=== PATIENT | male | born 1980 | race Caucasian/White ===

== ENCOUNTER 2016-08-03 11:22 | Inpatient (IN) | payer MEDICAID ==
[~2016-08-03] VITALS: Ht 175.3 cm; Wt 74.7 kg
[~2016-08-03 11:22] MED LIST: SERT-141 PO
[2016-08-03 12:04] LABS: MEAN CORPUSCULAR HEMOGLOBIN 29.9 pg (27.0-33.0); MEAN CORPUSCULAR HGB CONC 34.3 g/dl (32.0-36.5); MEAN CORPUSCULAR VOLUME 87.2 fl (80.0-96.0); RED CELL DISTRIBUTION WIDTH 12.7 % (11.5-14.5); WHITE BLOOD COUNT 7.5 K/mm3 (4.0-10.0)
[2016-08-03 12:34] LABS: AMPHETAMINES LEVEL URINE NEGATIVE (NEGATIVE); BENZODIAZEPINES URINE POSITIVE (NEGATIVE); COCAINE METABOLITE URINE POSITIVE (NEGATIVE); CONTROL LINE INT CTR LINE PRESENT; METHADONE URINE NEGATIVE (NEGATIVE); OPIATES URINE POSITIVE (NEGATIVE)
[2016-08-03 12:35] LABS: ALBUMIN 3.4 GM/DL (3.2-5.2); ALBUMIN/GLOBULIN RATIO 0.89 (1.00-1.93); ALKALINE PHOSPHATASE 72 U/L (45-117); ALT/SGPT 78 U/L (12-78); ANION GAP 7 MEQ/L (8-16); AST/SGOT 42 U/L (15-37); BILIRUBIN,DIRECT < 0.1 MG/DL (0.0-0.2); BILIRUBIN,TOTAL 0.3 MG/DL (0.2-1.0); BLOOD UREA NITROGEN 10 MG/DL (7-18); CALCIUM LEVEL 8.8 MG/DL (8.5-10.1); CARBON DIOXIDE LEVEL 26 MEQ/L (21-32); CHLORIDE LEVEL 108 MEQ/L (98-107); CREATININE FOR GFR 0.79 MG/DL (0.70-1.30); GLOMERULAR FILTRATION RATE > 60.0 (>60); GLUCOSE, FASTING 91 MG/DL (70-105); POTASSIUM SERUM 4.2 MEQ/L (3.5-5.1); SODIUM LEVEL 141 MEQ/L (136-145); TOTAL PROTEIN 7.2 GM/DL (6.4-8.2); TRICYCLIC ANTIDEPRESS URINE POSITIVE (NEGATIVE)
[2016-08-03] MEDS ORDERED: XANA0.25 PO (15:06)
[2016-08-03] MEDS ORDERED: BUSP10TA PO (15:06)
[2016-08-03] MEDS ORDERED: ZOLO50TA PO (15:06)
--- NOTE | 2016-08-03 18:15 | EDDOCDS ---
Physician Documentation [facility] Name: Darryl Burns Age: 35 yrs Sex: Male : 1980 Arrival Date: 08/03/2016 Time: 11:[address] [facility] Private MD: Rose Nayak G. Disposition: 08/03 13:18 Critical Care: Critical care not applicable. pc Disposition: 08/03/16 13:19 Hospitalization ordered by Natasha Moreno for Inpatient Admission. Preliminary diagnosis are Opioid abuse with opioid-induced mood disorder, Suicidal ideations. - Bed requested for Admit. - Status is Inpatient Admission. kcs - Condition is Stable. - Problem is new. - Symptoms are unchanged. HPI: 12:02 This 35 yrs old Male presents to ER via Walkin/Carried/Asstd with complaints pc of Psych Problem. 12:02 The history is obtained from the patient. pc 12:02 The patient presents to the emergency department with suicidal ideation, depression, a pc history of substance abuse. He is requesting admission to [facility]. He is an opioid addict, with both arms covered in track baker. He says he is sick of everything and wants to . The patient has experienced similar episodes in the past, multiple times. The patient has not recently seen a physician. Historical: - Allergies: sleep medications; - Home Meds: 1. Zoloft 50 mg oral tab 1 tab once daily 2. buspirone 10 mg Oral tab 2 times per day 3. Xanax 0.5 mg Oral tab twice a day - PMHx: opiate addiction; Hepatitis C; Depression; Anxiety; - PSHx: none; - The history from nurses notes was reviewed: and I agree with what is documented. - Social history: Smoking status: Patient uses tobacco products, heavy tobacco smoker. No barriers to communication noted, The patient speaks fluent Mauritian, Speaks appropriately for age. - : The pt / caregiver states he / she is not on anticoagulants. Home medication list is obtained from the patient. - Hospitalizations: : No recent hospitalization is reported. - Exposure Risk Screening:: None identified. - Immunization history:: All immunizations up-to-date. - Family history: Not pertinent. - Social history:: the patient is a non-smoker, the patient drinks alcohol, the patient uses illicit drugs, including heroin, opiates. ROS: 12:02 All systems are negative except as listed. The psychiatric and neurological components pc are also addressed in the HPI. Exam: 12:02 General Appearance: alert, no acute distress. pc 12:02 ENT: ear, nose and throat normal, pharynx normal. 12:02 Eyes: pupils equal, round and reactive to light, extraocular motions intact. 12:02 Neck: The exam reveals no acute abnormalities. ROM is normal and painless. No nuchal rigidity is noted.. 12:02 Respiratory: breathing is even and unlabored, breath sounds are normal. 12:02 Cardiovascular: regular pulse rate, regular heart rhythm, normal heart sounds, equal and full pulses bilaterally. 12:02 Abdomen: soft, non-tender, no organomegaly, normal bowel sounds. 12:02 Skin: skin color is normal, warm, dry. 12:02 Extremities: are non-tender, without acute ROM abnormalities, track baker on forearms . 12:02 Neuro: alert, oriented to person, place and time, cranial nerves normal as tested, no motor deficits, no sensory deficits. 12:02 Psych: mood is normal, affect is appropriate. Vital Signs: 11:24 BP 109 / 70 RA Sitting (auto/lg); Pulse 90; Resp 20; Temp 97.0(O); Pulse Ox 99% on R/A; bnb Weight 72.57 kg / 159.99 lbs; Height 5 ft. 9 in. (175.26 cm) (R); Pain 0/10; 17:01 BP 107 / 58; Pulse 79; Resp 18; Temp 97.7(TE); Pulse Ox 97% on R/A; kcs 18:11 BP 105 / 60; Pulse 77; Resp 18; Temp 98.0(TE); Pulse Ox 98% on R/A; Pain 4/10; kcs 11:24 Body Mass Index 23.63 (72.57 kg, 175.26 cm) bnb MDM: 11:46 Consult PFS/PSA/[place] ordered. kcs 11:46 Consult PFS/PSA/[place]: Patient's case requires discussion with on-call kcs Psychiatrist ordered. 11:46 PSA/PFS to call Nursing Facility Rehab Director, to enter patient data on [place] Safe Act if patient kcs involuntarily admitted or transferred for SI or HI ordered. 11:46 Confirm accurate psychiatric medication list and times of last dosage ordered. kcs 11:46 Detain Pt Until Medically/PFS Cleared ordered. kcs 11:48 Acetaminophen Level Ordered. EDMS 11:48 Basic Metabolic Profile Ordered. EDMS 11:48 Complete Blood Count Ordered. EDMS 11:48 Drug Eval Toxicology ED Only Ordered. EDMS 11:48 Ethyl Alcohol (ethanol) Ordered. EDMS 11:48 Liver Profile Ordered. EDMS 11:48 Salicylate Level Ordered. EDMS 11:48 Thyroid Stimulating Hormone Ordered. EDMS 11:56 REGULAR DIET PLASTIC CARTER+DIET ordered. EDMS 12:02 Differential diagnosis: suicidal ideation, Substance Abuse. Plan: labs, PFS eval. pc 12:08 Consult PFS/PSA/[place] complete. ml4 12:08 Consult PFS/PSA/[place]: Patient's case requires discussion with on-call ml4 Psychiatrist complete. 12:08 PSA/PFS to call Nursing Facility Rehab Director, to enter patient data on [place] Safe Act if patient ml4 involuntarily admitted or transferred for SI or HI complete. 12:38 Acetaminophen Level Reviewed. pc 12:38 Basic Metabolic Profile Reviewed. pc 12:38 Complete Blood Count Reviewed. pc 12:38 Drug Eval Toxicology ED Only Reviewed. pc 12:38 Liver Profile Reviewed. pc 12:38 Salicylate Level Reviewed. pc 12:38 Ethyl Alcohol (ethanol) Reviewed. pc 12:38 Thyroid Stimulating Hormone Reviewed. pc 13:18 The patient has been medically cleared for psychiatric evaluation, admission and/or pc transfer. [place]: The patient poses a significant risk to self or others, and PSA/PFS has notified the Nursing Facility Rehab Director and he/she will complete the required studio data analyst. Data reviewed: old medical records, vital signs, nurses notes, lab test results. Test interpretation: LAB - all labs as ordered have been reviewed, interpreted and considered in the overall management of the clinical presentation;. The patient has been re-examined and re-evaluated. There is no appreciated change of the patient's symptoms at this time. Other consultation: The ED pantry worker was notified and will evaluate the patient. 13:18 Disposition: The historical points, examination findings, and any diagnostic results pc supporting the provided diagnosis, were discussed with the patient or legal guardian. The need for further work-up and/or treatment in the hospital was explained. 13:45 Admit to [facility]: ordered. EDMS 13:48 [facility] Payment Agreement was scanned into [employer] and attached to record. jp5 13:48 Financial registration complete. jp5 13:56 [facility] Legal paperwork was scanned into [employer] and attached to record. ml4 14:00 REGULAR DIET ordered. EDMS 16:23 REGULAR DIET PLASTIC CARTER+DIET ordered. EDMS Signatures: Dispatcher [employer] EDMS Pablo Alcazar MD MD pc Sleeman, Kacey RN RN Jennifer TaylorRN RN [id number] Teresa Brock, PSA PSA ml4 Hortensia Joseph jp5 The chart was reviewed and I authenticate all verbal orders and agree with the evaluation and treatment provided.Attachments: 13:48 [facility] Payment Agreement jp5 MTDD
--- NOTE | 2016-08-03 18:15 | EDDOCDS ---
Nurse's Notes [facility] Name: Darryl Burns Age: 35 yrs Sex: Male : 1980 Arrival Date: 08/03/2016 Time: 11:[address] MD: Rose Nayak G. Diagnosis: Opioid abuse with opioid-induced mood disorder;Suicidal ideations Presentation: 08/03 11:27 Presenting complaint: Patient states: Reports withdrawals from his medications (xanax ck1 and opiates). Sates he is having SI and "I need to go upstairs". Mental Health Triage Level: Level 2: The patient displays active suicidal ideations. Adult Sepsis Screening: The patient does not have new or worsening altered mentation. Patient's respiratory rate is less than 22. Systolic blood pressure is greater than 100. Patient has a qSOFA score of 0- Negative Sepsis Screen. Suicide/Homicide risk assessment- The patient admits to and/or has been reported to be having suicidal ideations. The patient reports that he/she has not been admitted to an inpatient mental health facility in the last 30 days. The patient reports that he/she has a recent or current history of substance abuse. The patient reports that he/she has a prior history of suicide attempt and/or organized plan. The patient reports that he/she has not experienced a significant life altering event in the last 30 days. The patient reports that he/she lacks adequate social support. The patient reports he/she has no significant chronic medical condition(s). Status: Patient is not a youth services specialist or dependent. Transition of care: patient was not received from another setting of care. 11:27 Acuity: ISABEL Level 3 ck1 11:27 Method Of Arrival: Walkin/Carried/Asstd ck1 11:31 Red Flag criteria, patient assessed and taken directly to a bed. ck1 Triage Assessment: 11:30 General: Appears in no apparent distress, comfortable, Behavior is appropriate for age, ck1 cooperative. Pain: Denies pain. HIV screening NA for this visit Offered previously. Neurological: Level of Consciousness is awake, alert, obeys commands. Respiratory: Respiratory effort is unlabored, Respiratory pattern is regular, symmetrical. GI: Reports diarrhea. Derm: Skin is healthy with good turgor, Skin is pink, warm & dry. Musculoskeletal: Circulation, motion, and sensation intact Range of motion intact in all extremities. Historical: - Allergies: sleep medications; - Home Meds: 1. Zoloft 50 mg oral tab 1 tab once daily 2. buspirone 10 mg Oral tab 2 times per day 3. Xanax 0.5 mg Oral tab twice a day - PMHx: opiate addiction; Hepatitis C; Depression; Anxiety; - PSHx: none; - The history from nurses notes was reviewed: and I agree with what is documented. - Social history: Smoking status: Patient uses tobacco products, heavy tobacco smoker. No barriers to communication noted, The patient speaks fluent Lithuanian, Speaks appropriately for age. - : The pt / caregiver states he / she is not on anticoagulants. Home medication list is obtained from the patient. - Hospitalizations: : No recent hospitalization is reported. - Exposure Risk Screening:: None identified. - Immunization history:: All immunizations up-to-date. - Family history: Not pertinent. - Social history:: the patient is a non-smoker, the patient drinks alcohol, the patient uses illicit drugs, including heroin, opiates. Screenin:01 Screening information is obtained from the patient. Fall risk: No risks identified. kcs Assistance ADL's: requires no assistance with activities of daily living. Abuse/DV Screen: The patient / caregiver reports he/she is: not in a situation that causes fear, pain or injury. Nutritional screening: No deficits noted. Advance Directives: Currently, there is no health care proxy. There is no living will. home support is adequate. Assessment: 12:03 Reassessment: Patient resting on stretcher. No shaking noted. States he aches all over kcs which is normal for him when he is withdrawing - states has been to rehab multiple times. Respirations easy. Flat affect. Security observing.. 12:12 General: GAURI Davis evaluating patient.. kcs 12:57 Reassessment: Patient eating lunch. Security observing.. kcs 14:18 Reassessment: patient resting on stretcher - denies any needs. Respirations easy. kcs Security observing.. 15:18 Reassessment: Patient resting on stretcher - respirations easy. Security observing.. kcs 16:41 Reassessment: Patient continues to rest on stretcher - with eyes closed. Respirations kcs easy. No shaking noted. Security observing.. 17:01 Reassessment: Patient roused easily. Denies pain but states he aches all over. Still no kcs shaking noted. Declines po fluids. Security observing.. 18:11 Reassessment: Patient states he still aches all over - not pain. No shaking noted. Flat kcs affect Cooperative.. General: Appears comfortable, well developed, well nourished, well groomed, Behavior is cooperative, flat. Pain: Location: aches all over Pain currently is 4 out of 10 on a pain scale. Neurological: Level of Consciousness is awake, alert. Respiratory: Airway is patent Respiratory effort is even, unlabored, Respiratory pattern is regular, symmetrical. Derm: Skin is intact, is healthy with good turgor, Skin is dry, Skin is normal. Mental Health Eval: 12:18 Mental health consult is initiated at 12:00. Status: The patient is not a ml4 youth services specialist or dependent. [facility] Behavioral Health: The patient is not an established patient of [facility] Behavioral Health. Referral Information: Evaluation referral is generated by the patient himself / herself. The patient was referred for evaluation because thoughts of suicide with no specific plan due to on-going substance abuse. . Subjective: The patients chief complaint is pt states," I want to kill myself because I can't take these withdrawals anymore." Pt reports suffering from thoughts of suicide with no plan over the past few days related to his on-going substance abuse. Admits abusing Suboxone(2 strips per day) that he regularly purchases off the street, last used yesterday. Pt states, "If can't get Suboxone, then I will buy Heroin." Last used Heroin 2 days ago(IV, 1 gram). In addition to opiates, pt reports smoking "Crack" and states, "it's because I live at a Crack house." Due to his on-going substance abuse, pt reports his 6 year relationship was terminated last year(November,) and ex girlfriend continues to refuses to allow him to see his 2 children(ages 2 and 3). Admits missing his family and states he does not have anyone in his life that cares about him. Other stressors include housing. Admits residing at a "Crack House" and states he is sanctioned from [facility] after he left [facility] in 2016, therefore is homeless. Pt is requesting rehab, but continues to express SI with no plan. . Delusions are denied. Patient's mood is depressed, Hallucinations are denied. Mental Health history: anxiety, depression, abusing prescription drugs. crack cocaine. methamphetamine. heroin. narcotics. Mental Health Admissions: [facility] d/c 12/16/15 Current Outpatient Mental Health Services: None. Current living environment is The patient currently lives with roommates . The patient is single. 12:58 Patient presents to Emergency Department with the following symptoms within the past 2 ml4 weeks: decreased appetite, depressed mood, drug abuse, feelings of helplessness/hopelessness, non-compliance, poor concentration, relational problem, sleep disturbance - insomnia, suicidal ideation with no plan. Substance abuse: Patient uses heroin 1 gram, IV, Last used 2 days ago Patient uses opiates Type Used: Synthetic, Suboxone/ 2 strips per day/Last used, yesterday Patient uses tobacco 1 pack Frequency daily. Mental status exam: Patients appearance is unkempt, Patient's behavior is cooperative, Speech is normal. Affect is appropriate. Mood is depressed. Hallucinations are denied. Appetite is poor. Memory is good. Energy level is normal. Content of thought is depressive. due to SI with no plan Thought process is intact. Cognitive level is oriented to person, place, time and situation Patient's insight is poor. Judgement is poor. Rapport with interviewer is good. Suicidal Ideation is present with no specific plan. Homicidal ideation is denied. Disposition: Medically cleared for disposition by Pablo Alcazar MD Psychiatric Consult is performed by phone with Dr Natasha Moreno. [facility] Admission Criteria: The patient is experiencing suicidal ideation. The patient requires continuous observation and/or control to protect self, others or property. The patient's care requires a multi-modal treatment plan under close supervision and coordination due to the complexity and severity of the patient's symptoms. The patient requires administration and monitoring of psychoactive medications by skilled medical providers due to the side effects of the psychoactive medications or significant dosage adjustments. Legal Status: Patient's legal status will be Emergency admission: . [place] Safe Act: [place] Safe Act is applicable to this patient. The patient poses a risk to self or other and the Nursing Education Consultant has been notified. He/She will enter the patient's data. DSM-V Differential Diagnosis: Major Depressive Disorder unspecified (F33.9) Opioid Use Disorder. Narrative: Pt is aware he will not be prescribed Suboxone or Methadone while [facility]. Pt continues to request hospitalization and endorse SI with no plan. Awaiting: transfer [facility]. Vital Signs: 11:24 BP 109 / 70 RA Sitting (auto/lg); Pulse 90; Resp 20; Temp 97.0(O); Pulse Ox 99% on R/A; bnb Weight 72.57 kg; Height 5 ft. 9 in. (175.26 cm) (R); Pain 0/10; 17:01 BP 107 / 58; Pulse 79; Resp 18; Temp 97.7(TE); Pulse Ox 97% on R/A; kcs 18:11 BP 105 / 60; Pulse 77; Resp 18; Temp 98.0(TE); Pulse Ox 98% on R/A; Pain 4/10; kcs 11:24 Body Mass Index 23.63 (72.57 kg, 175.26 cm) bnb Vitals: 11:24 Log In Time: August 03, 2016 at 11:20. RN notified that patient meets Red Flag bnb criteria. ED Course: 11:23 Patient visited by Maria Del Carmen Graham PCA. bnb 11:23 Rose Nayak is Private Physician. bnb 11:23 Patient moved to Waiting bnb 11:29 Triage Initiated ck1 11:31 Patient moved to [facility] ck1 11:45 Pt greeted and oriented to ED. Patient advised of names of staff involved in care, pjf location of call sawyer, wait times and NPO status. Patient has correct armband on for positive identification. Placed in psych safe attire. Bed in low position. Call light in reach. Side rails up X 1. Security observing. Property removed, secured in belongings bag- Placed in locker #2. Door closed. Noise minimized. Visitors limited. Report received from rn- psych. triage level #2, +si, cooperative \\T\\ this time. The patient / caregiver is instructed regarding the plan of care and ED course. 11:46 Patient visited by Maurice Piper Security Aide. pjf 11:50 Pablo Alcazar MD is Attending Physician. pc 11:54 Acetaminophen Level Sent. kcs 11:54 Basic Metabolic Profile Sent. kcs 11:54 Complete Blood Count Sent. kcs 11:54 Drug Eval Toxicology ED Only Sent. kcs 11:54 Ethyl Alcohol (ethanol) Sent. kcs 11:54 Liver Profile Sent. kcs 11:54 Salicylate Level Sent. kcs 11:54 Thyroid Stimulating Hormone Sent. kcs 12:01 Patient visited by Pablo Alcazar MD. pc 12:03 Patient visited by Teresa Brock PSA. ml4 12:25 Patient visited by Maurice Piper Security Aide. pjf 12:43 Patient visited by Maurice Piper Security Aide. pjf 13:05 Patient visited by Maurice Piper Security Aide. pjf 13:19 Natasha Moreno is Hospitalizing Provider. pc 13:22 Patient visited by Maurice Piper Security Aide. pjf 13:34 Patient visited by Maurice Piper Security Aide. pjf 13:45 Psych Safety Check: Location: Psych Room. Visual Assessment: Cooperative. pjf 13:48 [id number] Payment Agreement was scanned into [employer] and attached to record. jp5 13:56 E Legal paperwork was scanned into [employer] and attached to record. ml4 13:59 Patient visited by Maurice Piper Security Aide. pjf 14:14 Patient visited by Maurice Piper Security Aide. pjf 14:34 Patient visited by Maurice Piper Security Aide. pjf 14:51 Patient visited by Maurice Piper Security Aide. pjf 15:04 Patient visited by Maurice Piper Security Aide. pjf 15:15 Psych Safety Check: Location: Psych Room. Visual Assessment: Cooperative. pjf 15:30 Psych Safety Check: Location: Psych Room. Visual Assessment: Cooperative. pjf 15:45 Psych Safety Check: Location: Psych Room. Visual Assessment: Cooperative. pjf 16:00 Psych Safety Check: Location: Psych Room. Visual Assessment: Cooperative. pjf 16:58 Patient visited by Maurice Piper Security Aide. pjf 17:30 Patient visited by Maurice Piper Security Aide. pjf 17:57 Patient visited by Maurice Piper Security Aide. pjf 18:11 No IV's were initiated during this patient's visit. No procedures done that require kcs assistance. Attachments: 13:56 E Legal paperwork ml4 Order Results: Lab Order: Acetaminophen Level; SPEC'M 08/03/16 11:52 Test: ACETAMINOPHEN LEVEL; Value: < 2.0; Range: 10.0-30.0; Abnormal: Below low normal; Units: UG/ML; Status: F Lab Order: Basic Metabolic Profile; SPEC'M 08/03/16 11:52 Test: GLUCOSE, FASTING; Value: 91; Range: 70-105; Units: MG/DL; Status: F Test: BLOOD UREA NITROGEN; Value: 10; Range: 7-18; Units: MG/DL; Status: F Test: CREATININE FOR GFR; Value: 0.79; Range: 0.70-1.30; Units: MG/DL; Status: F Test: GLOMERULAR FILTRATION RATE; Value: > 60.0; Range: >60; Status: F Test: SODIUM LEVEL; Value: 141; Range: 136-145; Units: MEQ/L; Status: F Test: POTASSIUM SERUM; Value: 4.2; Range: 3.5-5.1; Units: MEQ/L; Status: F Test: CHLORIDE LEVEL; Value: 108; Range: 98-107; Abnormal: Above high normal; Units: MEQ/L; Status: F Test: CARBON DIOXIDE LEVEL; Value: 26; Range: 21-32; Units: MEQ/L; Status: F Test: ANION GAP; Value: 7; Range: 8-16; Abnormal: Below low normal; Units: MEQ/L; Status: F Test: CALCIUM LEVEL; Value: 8.8; Range: 8.5-10.1; Units: MG/DL; Status: F Test Note: ; Units are mL/min/1.73 m2 Chronic Kidney Disease Staging per NKF: Stage I & II GFR >=60 Normal to Mildly Decreased Stage III GFR 30-59 Moderately Decreased Stage IV GFR 15-29 Severely Decreased Stage V GFR <15 Very Little GFR Left ESRD GFR <15 on VAULT PERSON Lab Order: Complete Blood Count; SPEC'M 08/03/16 11:52 Test: WHITE BLOOD COUNT; Value: 7.5; Range: 4.0-10.0; Units: K/mm3; Status: F Test: RED BLOOD COUNT; Value: 4.76; Range: 4.30-6.10; Units: M/mm3; Status: F Test: HEMOGLOBIN; Value: 14.2; Range: 14.0-18.0; Units: g/dl; Status: F Test: HEMATOCRIT; Value: 41.5; Range: 42.0-52.0; Abnormal: Below low normal; Units: %; Status: F Test: MEAN CORPUSCULAR VOLUME; Value: 87.2; Range: 80.0-96.0; Units: fl; Status: F Test: MEAN CORPUSCULAR HEMOGLOBIN; Value: 29.9; Range: 27.0-33.0; Units: pg; Status: F Test: MEAN CORPUSCULAR HGB CONC; Value: 34.3; Range: 32.0-36.5; Units: g/dl; Status: F Test: RED CELL DISTRIBUTION WIDTH; Value: 12.7; Range: 11.5-14.5; Units: %; Status: F Test: PLATELET COUNT, AUTOMATED; Value: 308; Range: 150-450; Units: k/mm3; Status: F Lab Order: Drug Eval Toxicology ED Only; SPEC'M 08/03/16 11:52 Test: AMPHETAMINES LEVEL URINE; Value: NEGATIVE; Range: NEGATIVE; Status: F Test: BARBITURATES URINE; Value: NEGATIVE; Range: NEGATIVE; Status: F Test: BENZODIAZEPINES URINE; Value: POSITIVE; Range: NEGATIVE; Abnormal: Above high normal; Status: F Test: CANNABINOIDS URINE; Value: POSITIVE; Range: NEGATIVE; Abnormal: Above high normal; Status: F Test: COCAINE METABOLITE URINE; Value: POSITIVE; Range: NEGATIVE; Abnormal: Above high normal; Status: F Test: METHADONE URINE; Value: NEGATIVE; Range: NEGATIVE; Status: F Test: OPIATES URINE; Value: POSITIVE; Range: NEGATIVE; Abnormal: Above high normal; Status: F Test: TRICYCLIC ANTIDEPRESS URINE; Value: POSITIVE; Range: NEGATIVE; Abnormal: Above high normal; Status: F Test Note: ; FALSE POSITIVE RESULTS CAN BE CAUSED BY THE USE OF PANTOPRAZOLE (PROTONIX). Lab Order: Ethyl Alcohol (ethanol); SPEC'M 08/03/16 11:52 Test: ETHYL ALCOHOL (ETHANOL); Value: < 0.003; Range: 0.000-0.010; Units: %; Status: F Lab Order: Liver Profile; SPEC'M 08/03/16 11:52 Test: AST/SGOT; Value: 42; Range: 15-37; Abnormal: Above high normal; Units: U/L; Status: F Test: ALT/SGPT; Value: 78; Range: 12-78; Units: U/L; Status: F Test: ALKALINE PHOSPHATASE; Value: 72; Range: 45-117; Units: U/L; Status: F Test: BILIRUBIN,TOTAL; Value: 0.3; Range: 0.2-1.0; Units: MG/DL; Status: F Test: BILIRUBIN,DIRECT; Value: < 0.1; Range: 0.0-0.2; Units: MG/DL; Status: F Test: TOTAL PROTEIN; Value: 7.2; Range: 6.4-8.2; Units: GM/DL; Status: F Test: ALBUMIN; Value: 3.4; Range: 3.2-5.2; Units: GM/DL; Status: F Test: ALBUMIN/GLOBULIN RATIO; Value: 0.89; Range: 1.00-1.93; Abnormal: Below low normal; Status: F Lab Order: Salicylate Level; SPEC'M 08/03/16 11:52 Test: SALICYLATE LEVEL; Value: < 1.7; Range: 5.0-30.0; Abnormal: Below low normal; Units: MG/DL; Status: F Lab Order: Thyroid Stimulating Hormone; SPEC'M 08/03/16 11:52 Test: THYROID STIMULATING HORMONE; Value: 1.280; Range: 0.358-3.740; Units: uIU/ML; Status: F Outcome: 13:19 Decision to Hospitalize by Provider. 18:11 Discharge Assessment: Patient awake, alert and oriented x 3. No cognitive and/or kcs functional deficits noted. Patient verbalized understanding of disposition instructions. Patient awake and alert. patient administered narcotics - no. The following High Risk Discharge criteria are identified: Yes, patient has been evaluated by PSA.. Admitted to Psych accompanied by tech, via wheelchair, with chart. Condition: stable. No special radiology studies were completed. 18:14 Patient left the ED. kcs Signatures: Pablo Alcazar MD MD pc Sleeman, Kacey, RN RN Maurice Alas Security Aide Securpjf Jennifer Finney,RN RN ck1 Teresa Brock, PSA PSA ml4 Hortensia Joseph jp5 Maria Del Carmen Graham, COOK MANAGER COOK MANAGER bnb Corrections: (The following items were deleted from the chart) 13:06 12:18 Mental Health history: anxiety, depression, abusing prescription drugs. crack ml4 cocaine. methamphetamine. heroin. narcotics. Mental Health Admissions: [facility]15 d/c 12/16/15 Current Outpatient Mental Health Services: None. Current living environment is homeless. ml4 MTDD
[2016-08-03 18:41] VITALS: BP 99/58
[2016-08-03] MEDS ORDERED: ALPRAZolam 0.25 MG TAB PO ONE (20:30)
[2016-08-03] MEDS ORDERED: MAALOX 30 ML SUSP *UDC PO PRN (20:45)
[2016-08-03] MEDS ORDERED: traZODone 50 MG TAB PO PRN (20:45)
[2016-08-03] MEDS ORDERED: MOM 30ML SUSPENSION UDC PO PRN (20:45)
[2016-08-03] MEDS ORDERED: ACETAMINOPHEN TAB 650MG DOSE (2X325MG) PO PRN (20:45)
[2016-08-03] MEDS: busPIRone 10 MG TAB PO SCH (21:24)
[2016-08-04 06:21] VITALS: BP 101/61
[2016-08-04] MEDS: busPIRone 10 MG TAB PO SCH ×2 (08:10→20:33)
[2016-08-04] MEDS: NICOTINE 21MG/24HR 1 EA TRANSDERMAL TD SCH (08:10)
[2016-08-04] MEDS: SERTRALINE HCL 50 MG TAB PO SCH (08:10)
--- NOTE | 2016-08-04 09:55 | HPEPDOC ---
Medical History and Physical Date of Admission Aug 03, 2016 at 18:25 History and Physical PCP: Dr Nayak ATTENDING: Dr. Selvin Saldaña HPI: 35yoM admitted to [facility] for unspecified depressive disorder, being medically examined today. Patient states he believes that a needle broke off in the right antecubital area. There is been no erythema, no pain, no drainage. Denies any fevers, chills, weakness, fatigue, ART, CP, SOB, cough, palpitations, abdominal pain, N/V/D or changes in bowel or bladder habits. PMHx: Chronic hepatitis C Substance use Depression Anxiety PSHX: Denies SOCHX: Resides in: [place] Marital Status: Single Kids: 2 Employment: Unemployed Tobacco use: One pack per day ETOH: One drink per month Illicit Drugs: Suboxone, heroin, cocaine, crack cocaine IV Drug Use: Heroin Tattoos done unprofessionally: Denies FAMHX: Mother: Alive, well Father: Alive, unknown Siblings: Alive, well Children: Alive, well Unexpected deaths due to medical reasons: None. ROS: As noted in HPI, otherwise 11pt ROS of systems reviewed and unremarkable PE: GEN: 35yoM, appears stated age. Well-nourished, well developed. No acute distress. Alert and oriented x 3. Pleasant, interactive. HEENT: Normocephalic, atraumatic. Pupils are equal, round, and reactive to light. Extraocular movements are intact. No nystagmus appreciated. Sclera are nonicteric. Conjunctiva without injection. Nose midline. Nasal turbinates without bogginess. EACs both patent BL. TMs both visualized and bedoya with good cone of light, no bulging or erythema. No facial asymmetry. Moist mucous membranes. Dentition fair. Pharynx pink and moist, no cobblestoning. Neck supple , trachea midline. No lymphadenopathy or thyromegaly appreciated. CHEST: Regular rate and rhythm, +S1, +S2 LUNGS: Clear to auscultation bilaterally. No wheezes, rales, or rhonchi. Breathing appears symmetric and easy. Patient is speaking in full sentences. No accessory muscle use. ABD: Round, soft, non-tender, non-distended. +Bowel sounds throughout. No rebound or guarding. No costovertebral angle tenderness. EXT: Pulses 2+ bilaterally dorsalis pedis and radial. No lower extremity edema appreciated. SKIN: [place], dry, warm. Capillary refill <2sec. No rashes. There are visible injection sites in the right and left antecubital areas. No erythema or drainage , tenderness with palpation. No visible foreign body. NEURO: Alert and oriented x 3. Cranial nerves III-XII are intact. No focal deficits appreciated. EKG: pending A&P: 35yoM admitted to [facility] for unspecified depressive disorder 1. Psych. Plan per Psychiatry. Obtain baseline EKG to assure the safety of psychiatric medications as they can prolong the QT interval. 2. Nicotine dependence. Patch available. 3. Chronic hepatitis C. Arrange referral to Dr. Garsia at discharge. Patient states he was referred in the past however he did not go to the appointment. Will request hepatitis C quantitative RNA, genotype, fibrosure so that it is available for appt. 4. Follow up with PCP on discharge. Dr Nayak. 5. Substance use. Per psychiatry. 6. IVDU. Patient would like to be rescreened for HIV. 7. Patient with concern for foreign body right antecubital area. I do not detect any foreign body in the right antecubital area. There are noted injection sites however there is no apparent infection, erythema, tenderness, fluctuance or apparent palpable foreign body. Request x-ray of the right antecubital area to investigate for any foreign body. Addendum: XR result reviewed with Dr Olivarez no general surgery intervention felt necessary at this time. Discussed with Dr Shi no orthopedic surgical intervention felt necessary at this time. Continue to monitor pt status. 8. Staff member present throughout exam, Jonatan mccoy. Vital Signs Vital Signs Label Value Date Time Patient Temperature 96.3 degrees F 08/04/16620 Temperature Source Tympanic 08/04/16620 Pulse 72 08/04/16620 Respiratory Rate 18 bpm 08/04/16620 Blood Pressure Assessment 101/61 (74) 08/04/16620 Laboratory Data Labs 24H Laboratory Tests 2 08/03/16 11:52: Acetaminophen Level < 2.0L, Aspartate Amino Transf (AST/SGOT) 42H, Alanine Aminotransferase (ALT/SGPT) 78, Alkaline Phosphatase 72, Total Bilirubin 0.3, Direct Bilirubin < 0.1, Albumin 3.4, Albumin/Globulin Ratio 0.89L, Anion Gap 7L , Calcium Level 8.8, Ethyl Alcohol Level < 0.003, Glomerular Filtration Rate > 60.0, Salicylates Level < 1.7L, Thyroid Stimulating Hormone (TSH) 1.280, Total Protein 7.2, Urine Amphetamines Screen NEGATIVE, Urine Benzodiazepines Screen POSITIVEH, Urine Opiates Screen POSITIVEH, Urine Barbiturates Screen NEGATIVE, Urine Cannabinoids Screen POSITIVEH, Urine Cocaine Metabolite Screen POSITIVEH, Urine Methadone Screen NEGATIVE, Urine Tricyclic Antidepressants POSITIVEH CBC/BMP Laboratory Tests 08/03/16 11:52 Red Blood Count 4.76, Mean Corpuscular Volume 87.2, Mean Corpuscular Hemoglobin 29.9, Mean Corpuscular Hemoglobin Concent 34.3, Red Cell Distribution Width 12.7 Home Medications Scheduled Alprazolam (Xanax) 0.25 Mg Tab 0.25 MG PO BID Buspirone HCl (Buspirone HCl) 10 Mg Tab 10 MG PO BID Sertraline Hcl (Zoloft) 50 Mg Tab 50 MG PO DAILY Allergies Coded Allergies: No Known Drug Allergy (Verified Allergy, Unknown, 12/11/15) Jane Sanchez Aug 04, 2016 09:55
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
[2016-08-04] MEDS ORDERED: ALPRAZolam 0.5 MG TAB PO ONE (11:00)
--- NOTE | 2016-08-04 11:29 | REP ---
Clinical: Trauma. Foreign body. Technique: AP, lateral, bilateral oblique views of the right elbow. Findings: A 7 mm thin, linear, needle-like foreign body is identified within the antecubital soft tissues overlying the proximal forearm. The osseous structures are intact. No subcutaneous emphysema. Impression: Foreign body, possible needle fragment within the antecubital soft tissues. Signed by Ulises Lindsey MD 08/04/2016 11:20 A
[2016-08-04 11:38] LABS: HEPATITIS B SURFACE ANTIBODY NEGATIVE (POSITIVE)
[2016-08-04 11:43] LABS: CONTROL LINE INT CTR LINE PRESENT; HIV SCRN NEGATIVE (NEGATIVE); HIV SCRN1 NEGATIVE (NEGATIVE)
[2016-08-04] MEDS ORDERED: hydrOXYzine 50 MG TAB PO PRN (14:30)
[2016-08-04 18:00] VITALS: BP 111/57
[2016-08-04] MEDS: METHADONE 10 MG TAB (S0109) PO SCH (20:34)
[2016-08-04] MEDS ORDERED: ALPRAZolam 0.25 MG TAB PO SCH (21:00)
[2016-08-05 06:37] VITALS: BP 110/55
[2016-08-05] MEDS: METHADONE 10 MG TAB (S0109) PO SCH ×2 (08:16→20:06)
[2016-08-05] MEDS: SERTRALINE HCL 50 MG TAB PO SCH (08:16)
[2016-08-05] MEDS: busPIRone 10 MG TAB PO SCH ×2 (08:16→20:06)
[2016-08-05] MEDS: NICOTINE 21MG/24HR 1 EA TRANSDERMAL TD SCH (08:16)
[2016-08-05 11:46] VITALS: BP 135/76
[2016-08-05 13:59] VITALS: BP 132/80
[2016-08-05 18:00] VITALS: BP 130/78
--- NOTE | 2016-08-05 19:15 | EDDOCDS ---
Physician Documentation [facility] Name: Darryl Burns Age: 35 yrs Sex: Male : 1980 Arrival Date: 08/03/2016 Time: 11:22 Bed [facility] Private MD: Rose Nayak G. Disposition: 08/03 13:18 Critical Care: Critical care not applicable. pc Disposition: 08/03/16 13:19 Hospitalization ordered by Natasha Moreno for Inpatient Admission. Preliminary diagnosis are Opioid abuse with opioid-induced mood disorder, Suicidal ideations. - Bed requested for Admit. - Status is Inpatient Admission. kcs - Condition is Stable. - Problem is new. - Symptoms are unchanged. HPI: 12:02 This 35 yrs old Male presents to ER via Walkin/Carried/Asstd with complaints pc of Psych Problem. 12:02 The history is obtained from the patient. pc 12:02 The patient presents to the emergency department with suicidal ideation, depression, a pc history of substance abuse. He [facility]. He is an opioid addict, with both arms covered in track baker. He says he is sick of everything and wants to . The patient has experienced similar episodes in the past, multiple times. The patient has not recently seen a physician. Historical: - Allergies: sleep medications; - Home Meds: 1. Zoloft 50 mg oral tab 1 tab once daily 2. buspirone 10 mg Oral tab 2 times per day 3. Xanax 0.5 mg Oral tab twice a day - PMHx: opiate addiction; Hepatitis C; Depression; Anxiety; - PSHx: none; - The history from nurses notes was reviewed: and I agree with what is documented. - Social history: Smoking status: Patient uses tobacco products, heavy tobacco smoker. No barriers to communication noted, The patient speaks fluent Fijian, Speaks appropriately for age. - : The pt / caregiver states he / she is not on anticoagulants. Home medication list is obtained from the patient. - Hospitalizations: : No recent hospitalization is reported. - Exposure Risk Screening:: None identified. - Immunization history:: All immunizations up-to-date. - Family history: Not pertinent. - Social history:: the patient is a non-smoker, the patient drinks alcohol, the patient uses illicit drugs, including heroin, opiates. ROS: 12:02 All systems are negative except as listed. The psychiatric and neurological components pc are also addressed in the HPI. Exam: 12:02 General Appearance: alert, no acute distress. pc 12:02 ENT: ear, nose and throat normal, pharynx normal. 12:02 Eyes: pupils equal, round and reactive to light, extraocular motions intact. 12:02 Neck: The exam reveals no acute abnormalities. ROM is normal and painless. No nuchal rigidity is noted.. 12:02 Respiratory: breathing is even and unlabored, breath sounds are normal. 12:02 Cardiovascular: regular pulse rate, regular heart rhythm, normal heart sounds, equal and full pulses bilaterally. 12:02 Abdomen: soft, non-tender, no organomegaly, normal bowel sounds. 12:02 Skin: skin color is normal, warm, dry. 12:02 Extremities: are non-tender, without acute ROM abnormalities, track baker on forearms . 12:02 Neuro: alert, oriented to person, place and time, cranial nerves normal as tested, no motor deficits, no sensory deficits. 12:02 Psych: mood is normal, affect is appropriate. Vital Signs: 11:24 BP 109 / 70 RA Sitting (auto/lg); Pulse 90; Resp 20; Temp 97.0(O); Pulse Ox 99% on R/A; bnb Weight 72.57 kg / 159.99 lbs; Height 5 ft. 9 in. (175.26 cm) (R); Pain 0/10; 17:01 BP 107 / 58; Pulse 79; Resp 18; Temp 97.7(TE); Pulse Ox 97% on R/A; kcs 18:11 BP 105 / 60; Pulse 77; Resp 18; Temp 98.0(TE); Pulse Ox 98% on R/A; Pain 4/10; kcs 11:24 Body Mass Index 23.63 (72.57 kg, 175.26 cm) bnb MDM: 11:46 Consult PFS/PSA/Processing Technician ordered. kcs 11:46 Consult PFS/PSA/Processing Technician: Patient's case requires discussion with on-call kcs Psychiatrist ordered. 11:46 PSA/PFS to call Nursing Telegrapher Agent, to enter patient data on [place] Safe Act if patient kcs involuntarily admitted or transferred for SI or HI ordered. 11:46 Confirm accurate psychiatric medication list and times of last dosage ordered. kcs 11:46 Detain Pt Until Medically/PFS Cleared ordered. kcs 11:48 Acetaminophen Level Ordered. EDMS 11:48 Basic Metabolic Profile Ordered. EDMS 11:48 Complete Blood Count Ordered. EDMS 11:48 Drug Eval Toxicology ED Only Ordered. EDMS 11:48 Ethyl Alcohol (ethanol) Ordered. EDMS 11:48 Liver Profile Ordered. EDMS 11:48 Salicylate Level Ordered. EDMS 11:48 Thyroid Stimulating Hormone Ordered. EDMS 11:56 REGULAR DIET PLASTIC CARTER+DIET ordered. EDMS 12:02 Differential diagnosis: suicidal ideation, Substance Abuse. Plan: labs, PFS eval. pc 12:08 Consult PFS/PSA/Processing Technician complete. ml4 12:08 Consult PFS/PSA/Processing Technician: Patient's case requires discussion with on-call ml4 Psychiatrist complete. 12:08 PSA/PFS to call Nursing Telegrapher Agent, to enter patient data on [place] Safe Act if patient ml4 involuntarily admitted or transferred for SI or HI complete. 12:38 Acetaminophen Level Reviewed. pc 12:38 Basic Metabolic Profile Reviewed. pc 12:38 Complete Blood Count Reviewed. pc 12:38 Drug Eval Toxicology ED Only Reviewed. pc 12:38 Liver Profile Reviewed. pc 12:38 Salicylate Level Reviewed. pc 12:38 Ethyl Alcohol (ethanol) Reviewed. pc 12:38 Thyroid Stimulating Hormone Reviewed. pc 13:18 The patient has been medically cleared for psychiatric evaluation, admission and/or pc transfer. [place] Safe Act reporting: The patient poses a significant risk to self or others, and PSA/PFS has notified the Nursing Telegrapher Agent and he/she will complete the required database programmer analyst. Data reviewed: old medical records, vital signs, nurses notes, lab test results. Test interpretation: LAB - all labs as ordered have been reviewed, interpreted and considered in the overall management of the clinical presentation;. The patient has been re-examined and re-evaluated. There is no appreciated change of the patient's symptoms at this time. Other consultation: The ED metal storage worker was notified and will evaluate the patient. 13:18 Disposition: The historical points, examination findings, and any diagnostic results pc supporting the provided diagnosis, were discussed with the patient or legal guardian. The need for further work-up and/or treatment in the hospital was explained. 13:45 [facility]mit to [facility]: ordered. EDMS 13:48 [facility] Payment Agreement was scanned into [employer] and attached to record. jp5 13:48 Financial registration complete. jp5 13:56 [facility] Legal paperwork was scanned into [employer] and attached to record. ml4 14:00 REGULAR DIET ordered. EDMS 16:23 REGULAR DIET PLASTIC CARTER+DIET ordered. EDMS Signatures: Dispatcher [employer] EDMS Pablo Alcazar MD MD pc Sleeman, Kacey RN RN Jennifer TaylorRN RN ck1 Teresa Brock, PSA PSA ml4 Hortensia Joseph jp5 The chart was reviewed and I authenticate all verbal orders and agree with the evaluation and treatment provided.Attachments: 13:48 [facility] Payment Agreement jp5 Chart Complete MTDD
--- NOTE | 2016-08-05 19:15 | EDDOCDS ---
Nurse's Notes [facility] Name: Darryl Burns Age: 35 yrs Sex: Male : 1980 Arrival Date: 08/03/2016 Time: 11:[address] MD: Rose Nayak G. Diagnosis: Opioid abuse with opioid-induced mood disorder;Suicidal ideations Presentation: 08/03 11:27 Presenting complaint: Patient states: Reports withdrawals from his medications (xanax ck1 and opiates). Sates he is having SI and "I need to go upstairs". Mental Health Triage Level: Level 2: The patient displays active suicidal ideations. Adult Sepsis Screening: The patient does not have new or worsening altered mentation. Patient's respiratory rate is less than 22. Systolic blood pressure is greater than 100. Patient has a qSOFA score of 0- Negative Sepsis Screen. Suicide/Homicide risk assessment- The patient admits to and/or has been reported to be having suicidal ideations. The patient reports that he/she has not been admitted to an inpatient mental health facility in the last 30 days. The patient reports that he/she has a recent or current history of substance abuse. The patient reports that he/she has a prior history of suicide attempt and/or organized plan. The patient reports that he/she has not experienced a significant life altering event in the last 30 days. The patient reports that he/she lacks adequate social support. The patient reports he/she has no significant chronic medical condition(s). Status: Patient is not a digital service engineer or dependent. Transition of care: patient was not received from another setting of care. 11:27 Acuity: ISABEL Level 3 ck1 11:27 Method Of Arrival: Walkin/Carried/Asstd ck1 11:31 Red Flag criteria, patient assessed and taken directly to a bed. ck1 Triage Assessment: 11:30 General: Appears in no apparent distress, comfortable, Behavior is appropriate for age, ck1 cooperative. Pain: Denies pain. HIV screening NA for this visit Offered previously. Neurological: Level of Consciousness is awake, alert, obeys commands. Respiratory: Respiratory effort is unlabored, Respiratory pattern is regular, symmetrical. GI: Reports diarrhea. Derm: Skin is healthy with good turgor, Skin is pink, warm & dry. Musculoskeletal: Circulation, motion, and sensation intact Range of motion intact in all extremities. Historical: - Allergies: sleep medications; - Home Meds: 1. Zoloft 50 mg oral tab 1 tab once daily 2. buspirone 10 mg Oral tab 2 times per day 3. Xanax 0.5 mg Oral tab twice a day - PMHx: opiate addiction; Hepatitis C; Depression; Anxiety; - PSHx: none; - The history from nurses notes was reviewed: and I agree with what is documented. - Social history: Smoking status: Patient uses tobacco products, heavy tobacco smoker. No barriers to communication noted, The patient speaks fluent Bengali, Speaks appropriately for age. - : The pt / caregiver states he / she is not on anticoagulants. Home medication list is obtained from the patient. - Hospitalizations: : No recent hospitalization is reported. - Exposure Risk Screening:: None identified. - Immunization history:: All immunizations up-to-date. - Family history: Not pertinent. - Social history:: the patient is a non-smoker, the patient drinks alcohol, the patient uses illicit drugs, including heroin, opiates. Screenin:01 Screening information is obtained from the patient. Fall risk: No risks identified. kcs Assistance ADL's: requires no assistance with activities of daily living. Abuse/DV Screen: The patient / caregiver reports he/she is: not in a situation that causes fear, pain or injury. Nutritional screening: No deficits noted. Advance Directives: Currently, there is no health care proxy. There is no living will. home support is adequate. Assessment: 12:03 Reassessment: Patient resting on stretcher. No shaking noted. States he aches all over kcs which is normal for him when he is withdrawing - states has been to rehab multiple times. Respirations easy. Flat affect. Security observing.. 12:12 General: GAURI Davis evaluating patient.. kcs 12:57 Reassessment: Patient eating lunch. Security observing.. kcs 14:18 Reassessment: patient resting on stretcher - denies any needs. Respirations easy. kcs Security observing.. 15:18 Reassessment: Patient resting on stretcher - respirations easy. Security observing.. kcs 16:41 Reassessment: Patient continues to rest on stretcher - with eyes closed. Respirations kcs easy. No shaking noted. Security observing.. 17:01 Reassessment: Patient roused easily. Denies pain but states he aches all over. Still no kcs shaking noted. Declines po fluids. Security observing.. 18:11 Reassessment: Patient states he still aches all over - not pain. No shaking noted. Flat kcs affect Cooperative.. General: Appears comfortable, well developed, well nourished, well groomed, Behavior is cooperative, flat. Pain: Location: aches all over Pain currently is 4 out of 10 on a pain scale. Neurological: Level of Consciousness is awake, alert. Respiratory: Airway is patent Respiratory effort is even, unlabored, Respiratory pattern is regular, symmetrical. Derm: Skin is intact, is healthy with good turgor, Skin is dry, Skin is normal. Mental Health Eval: 12:18 Mental health consult is initiated at 12:00. Status: The patient is not a ml4 digital service engineer or dependent. [facility] Behavioral Health: The patient is not an established patient of [facility] Behavioral Health. Referral Information: Evaluation referral is generated by the patient himself / herself. The patient was referred for evaluation because thoughts of suicide with no specific plan due to on-going substance abuse. . Subjective: The patients chief complaint is pt states," I want to kill myself because I can't take these withdrawals anymore." Pt reports suffering from thoughts of suicide with no plan over the past few days related to his on-going substance abuse. Admits abusing Suboxone(2 strips per day) that he regularly purchases off the street, last used yesterday. Pt states, "If can't get Suboxone, then I will buy Heroin." Last used Heroin 2 days ago(IV, 1 gram). In addition to opiates, pt reports smoking "Crack" and states, "it's because I live at a Crack house." Due to his on-going substance abuse, pt reports his 6 year relationship was terminated last year(November,) and ex girlfriend continues to refuses to allow him to see his 2 children(ages 2 and 3). Admits missing his family and states he does not have anyone in his life that cares about him. Other stressors include housing. Admits residing at a "Crack House" and states he is sanctioned from [facility] after he left [facility] in 2016, therefore is homeless. Pt is requesting rehab, but continues to express SI with no plan. . Delusions are denied. Patient's mood is depressed, Hallucinations are denied. Mental Health history: anxiety, depression, abusing prescription drugs. crack cocaine. methamphetamine. heroin. narcotics. Mental Health Admissions: Last admission to [facility] 12/11/15 d/c 12/16/15 Current Outpatient Mental Health Services: None. Current living environment is The patient currently lives with roommates . The patient is single. 12:58 Patient presents to Emergency Department with the following symptoms within the past 2 ml4 weeks: decreased appetite, depressed mood, drug abuse, feelings of helplessness/hopelessness, non-compliance, poor concentration, relational problem, sleep disturbance - insomnia, suicidal ideation with no plan. Substance abuse: Patient uses heroin 1 gram, IV, Last used 2 days ago Patient uses opiates Type Used: Synthetic, Suboxone/ 2 strips per day/Last used, yesterday Patient uses tobacco 1 pack Frequency daily. Mental status exam: Patients appearance is unkempt, Patient's behavior is cooperative, Speech is normal. Affect is appropriate. Mood is depressed. Hallucinations are denied. Appetite is poor. Memory is good. Energy level is normal. Content of thought is depressive. due to SI with no plan Thought process is intact. Cognitive level is oriented to person, place, time and situation Patient's insight is poor. Judgement is poor. Rapport with interviewer is good. Suicidal Ideation is present with no specific plan. Homicidal ideation is denied. Disposition: Medically cleared for disposition by Pablo Alcazar MD Psychiatric Consult is performed by phone with Dr Natasha Moreno. [facility] Admission Criteria: The patient is experiencing suicidal ideation. The patient requires continuous observation and/or control to protect self, others or property. The patient's care requires a multi-modal treatment plan under close supervision and coordination due to the complexity and severity of the patient's symptoms. The patient requires administration and monitoring of psychoactive medications by skilled medical providers due to the side effects of the psychoactive medications or significant dosage adjustments. Legal Status: Patient's legal status will be Emergency admission: . [place] Safe Act: [place] Safe Act is applicable to this patient. The patient poses a risk to self or other and the Nursing Pharmacy Messenger has been notified. He/She will enter the patient's data. DSM-V Differential Diagnosis: Major Depressive Disorder unspecified (F33.9) Opioid Use Disorder. Narrative: Pt is aware he will not be prescribed Suboxone or Methadone while on [facility]. Pt continues to request hospitalization and endorse SI with no plan. Awaiting: transfer to [facility]. 08/04 14:47 Insurance Pre-Certification: approved by: Alexander Austin \\T\\ [facility] approved admission for 4 days ms with review on 08/07. Authorization # [id number].. Vital Signs: 08/03 11:24 BP 109 / 70 RA Sitting (auto/lg); Pulse 90; Resp 20; Temp 97.0(O); Pulse Ox 99% on R/A; bnb Weight 72.57 kg; Height 5 ft. 9 in. (175.26 cm) (R); Pain 0/10; 17:01 BP 107 / 58; Pulse 79; Resp 18; Temp 97.7(TE); Pulse Ox 97% on R/A; kcs 18:11 BP 105 / 60; Pulse 77; Resp 18; Temp 98.0(TE); Pulse Ox 98% on R/A; Pain 4/10; kcs 11:24 Body Mass Index 23.63 (72.57 kg, 175.26 cm) bnb Vitals: 11:24 Log In Time: August 03, 2016 at 11:20. RN notified that patient meets Red Flag bnb criteria. ED Course: 11:23 Patient visited by Maria Del Carmen Graham PCA. b 11:23 Rose Nayak is Private Physician. b 11:23 Patient moved to [facility] bnb 11:29 Triage Initiated ck1 11:31 Patient moved to [facility] ck1 11:45 Pt greeted and oriented to ED. Patient advised of names of staff involved in care, pjf location of call sawyer, wait times and NPO status. Patient has correct armband on for positive identification. Placed in psych safe attire. Bed in low position. Call light in reach. Side rails up X 1. Security observing. Property removed, secured in belongings bag- Placed in locker #2. Door closed. Noise minimized. Visitors limited. Report received from rn- psych. triage level #2, +si, cooperative \\T\\ this time. The patient / caregiver is instructed regarding the plan of care and ED course. 11:46 Patient visited by Maurice Piper Security Aide. pjf 11:50 Pablo Alcazar MD is Attending Physician. pc 11:54 Acetaminophen Level Sent. kcs 11:54 Basic Metabolic Profile Sent. kcs 11:54 Complete Blood Count Sent. kcs 11:54 Drug Eval Toxicology ED Only Sent. kcs 11:54 Ethyl Alcohol (ethanol) Sent. kcs 11:54 Liver Profile Sent. kcs 11:54 Salicylate Level Sent. kcs 11:54 Thyroid Stimulating Hormone Sent. kcs 12:01 Patient visited by Pablo Alcazar MD. pc 12:03 Patient visited by Teresa Brock PSA. ml4 12:25 Patient visited by Maurice Piper Security Aide. pjf 12:43 Patient visited by Maurice Piper Security Aide. pjf 13:05 Patient visited by Maurice Piper Security Aide. pjf 13:19 Natasha Moreno is Hospitalizing Provider. pc 13:22 Patient visited by Maurice Piper Security Aide. pjf 13:34 Patient visited by Maurice Piper Security Aide. pjf 13:45 Psych Safety Check: Location: Psych Room. Visual Assessment: Cooperative. pjf 13:48 [facility] Payment Agreement was scanned into [employer] and attached to record. jp5 13:56 E Legal paperwork was scanned into [employer] and attached to record. ml4 13:59 Patient visited by Maurice Piper Security Aide. pjf 14:14 Patient visited by Maurice Piper Security Aide. pjf 14:34 Patient visited by Maurice Piper Security Aide. pjf 14:51 Patient visited by Maurice Piper Security Aide. pjf 15:04 Patient visited by Maurice Piper Security Aide. pjf 15:15 Psych Safety Check: Location: Psych Room. Visual Assessment: Cooperative. pjf 15:30 Psych Safety Check: Location: Psych Room. Visual Assessment: Cooperative. pjf 15:45 Psych Safety Check: Location: Psych Room. Visual Assessment: Cooperative. pjf 16:00 Psych Safety Check: Location: Psych Room. Visual Assessment: Cooperative. pjf 16:58 Patient visited by Maurice Piper Security Aide. pjf 17:30 Patient visited by Maurice Piper Security Aide. pjf 17:57 Patient visited by Maurice Piper Security Aide. pjf 18:11 No IV's were initiated during this patient's visit. No procedures done that require kcs assistance. Attachments: 13:56 MHE Legal paperwork ml4 Order Results: Lab Order: Acetaminophen Level; SPEC'M 08/03/16 11:52 Test: ACETAMINOPHEN LEVEL; Value: < 2.0; Range: 10.0-30.0; Abnormal: Below low normal; Units: UG/ML; Status: F Lab Order: Basic Metabolic Profile; SPEC'M 08/03/16 11:52 Test: GLUCOSE, FASTING; Value: 91; Range: 70-105; Units: MG/DL; Status: F Test: BLOOD UREA NITROGEN; Value: 10; Range: 7-18; Units: MG/DL; Status: F Test: CREATININE FOR GFR; Value: 0.79; Range: 0.70-1.30; Units: MG/DL; Status: F Test: GLOMERULAR FILTRATION RATE; Value: > 60.0; Range: >60; Status: F Test: SODIUM LEVEL; Value: 141; Range: 136-145; Units: MEQ/L; Status: F Test: POTASSIUM SERUM; Value: 4.2; Range: 3.5-5.1; Units: MEQ/L; Status: F Test: CHLORIDE LEVEL; Value: 108; Range: 98-107; Abnormal: Above high normal; Units: MEQ/L; Status: F Test: CARBON DIOXIDE LEVEL; Value: 26; Range: 21-32; Units: MEQ/L; Status: F Test: ANION GAP; Value: 7; Range: 8-16; Abnormal: Below low normal; Units: MEQ/L; Status: F Test: CALCIUM LEVEL; Value: 8.8; Range: 8.5-10.1; Units: MG/DL; Status: F Test Note: ; Units are mL/min/1.73 m2 Chronic Kidney Disease Staging per NKF: Stage I & II GFR >=60 Normal to Mildly Decreased Stage III GFR 30-59 Moderately Decreased Stage IV GFR 15-29 Severely Decreased Stage V GFR <15 Very Little GFR Left ESRD GFR <15 on TOWER CLEANER Lab Order: Complete Blood Count; SPEC'M 08/03/16 11:52 Test: WHITE BLOOD COUNT; Value: 7.5; Range: 4.0-10.0; Units: K/mm3; Status: F Test: RED BLOOD COUNT; Value: 4.76; Range: 4.30-6.10; Units: M/mm3; Status: F Test: HEMOGLOBIN; Value: 14.2; Range: 14.0-18.0; Units: g/dl; Status: F Test: HEMATOCRIT; Value: 41.5; Range: 42.0-52.0; Abnormal: Below low normal; Units: %; Status: F Test: MEAN CORPUSCULAR VOLUME; Value: 87.2; Range: 80.0-96.0; Units: fl; Status: F Test: MEAN CORPUSCULAR HEMOGLOBIN; Value: 29.9; Range: 27.0-33.0; Units: pg; Status: F Test: MEAN CORPUSCULAR HGB CONC; Value: 34.3; Range: 32.0-36.5; Units: g/dl; Status: F Test: RED CELL DISTRIBUTION WIDTH; Value: 12.7; Range: 11.5-14.5; Units: %; Status: F Test: PLATELET COUNT, AUTOMATED; Value: 308; Range: 150-450; Units: k/mm3; Status: F Lab Order: Drug Eval Toxicology ED Only; SPEC'M 08/03/16 11:52 Test: AMPHETAMINES LEVEL URINE; Value: NEGATIVE; Range: NEGATIVE; Status: F Test: BARBITURATES URINE; Value: NEGATIVE; Range: NEGATIVE; Status: F Test: BENZODIAZEPINES URINE; Value: POSITIVE; Range: NEGATIVE; Abnormal: Above high normal; Status: F Test: CANNABINOIDS URINE; Value: POSITIVE; Range: NEGATIVE; Abnormal: Above high normal; Status: F Test: COCAINE METABOLITE URINE; Value: POSITIVE; Range: NEGATIVE; Abnormal: Above high normal; Status: F Test: METHADONE URINE; Value: NEGATIVE; Range: NEGATIVE; Status: F Test: OPIATES URINE; Value: POSITIVE; Range: NEGATIVE; Abnormal: Above high normal; Status: F Test: TRICYCLIC ANTIDEPRESS URINE; Value: POSITIVE; Range: NEGATIVE; Abnormal: Above high normal; Status: F Test Note: ; FALSE POSITIVE RESULTS CAN BE CAUSED BY THE USE OF PANTOPRAZOLE (PROTONIX). Lab Order: Ethyl Alcohol (ethanol); SPEC'M 08/03/16 11:52 Test: ETHYL ALCOHOL (ETHANOL); Value: < 0.003; Range: 0.000-0.010; Units: %; Status: F Lab Order: Liver Profile; [facility] 08/03/16 11:52 Test: AST/SGOT; Value: 42; Range: 15-37; Abnormal: Above high normal; Units: U/L; Status: F Test: ALT/SGPT; Value: 78; Range: 12-78; Units: U/L; Status: F Test: ALKALINE PHOSPHATASE; Value: 72; Range: 45-117; Units: U/L; Status: F Test: BILIRUBIN,TOTAL; Value: 0.3; Range: 0.2-1.0; Units: MG/DL; Status: F Test: BILIRUBIN,DIRECT; Value: < 0.1; Range: 0.0-0.2; Units: MG/DL; Status: F Test: TOTAL PROTEIN; Value: 7.2; Range: 6.4-8.2; Units: GM/DL; Status: F Test: ALBUMIN; Value: 3.4; Range: 3.2-5.2; Units: GM/DL; Status: F Test: ALBUMIN/GLOBULIN RATIO; Value: 0.89; Range: 1.00-1.93; Abnormal: Below low normal; Status: F Lab Order: Salicylate Level; [facility] 08/03/16 11:52 Test: SALICYLATE LEVEL; Value: < 1.7; Range: 5.0-30.0; Abnormal: Below low normal; Units: MG/DL; Status: F Lab Order: Thyroid Stimulating Hormone; [facility] 08/03/16 11:52 Test: THYROID STIMULATING HORMONE; Value: 1.280; Range: 0.358-3.740; Units: uIU/ML; Status: F Outcome: 13:19 Decision to Hospitalize by Provider. pc 18:11 Discharge Assessment: Patient awake, alert and oriented x 3. No cognitive and/or kcs functional deficits noted. Patient verbalized understanding of disposition instructions. Patient awake and alert. patient administered narcotics - no. The following High Risk Discharge criteria are identified: Yes, patient has been evaluated by PSA.. Admitted to Psych accompanied by tech, via wheelchair, with chart. Condition: stable. No special radiology studies were completed. 18:14 Patient left the ED. kcs Signatures: Pablo Alcazar MD MD pc Sleeman, Kacey RN RN kcs Antoine, Rita, PSA PSA Maurice Riggs, Security Aide Julietaguzman Jennifer FinneyRN RN ck1 Vinod, Teresa, PSA PSA ml4 Jake Annikadell jp5 Maria Del Carmen Graham, CLUTCH INSPECTOR CLUTCH INSPECTOR bnb Corrections: (The following items were deleted from the chart) 13:06 12:18 Mental Health history: anxiety, depression, abusing prescription drugs. crack ml4 cocaine. methamphetamine. heroin. narcotics. Mental Health Admissions: Last admission to [facility] 12/11/15 d/c 12/16/15 Current Outpatient Mental Health Services: None. Current living environment is homeless. ml4 Chart Complete MTDD
--- NOTE | 2016-08-05 19:15 | EDDOCDS ---
Physician Documentation [facility] Name: Darryl Burns Age: 35 yrs Sex: Male : 1980 Arrival Date: 08/03/2016 Time: 11:22 Bed [facility] Private MD: Rose Nayak G. Disposition: 08/03 13:18 Critical Care: Critical care not applicable. pc Disposition: 08/03/16 13:19 Hospitalization ordered by Natasha Moreno for Inpatient Admission. Preliminary diagnosis are Opioid abuse with opioid-induced mood disorder, Suicidal ideations. - Bed requested for Admit. - Status is Inpatient Admission. kcs - Condition is Stable. - Problem is new. - Symptoms are unchanged. HPI: 12:02 This 35 yrs old Male presents to ER via Walkin/Carried/Asstd with complaints pc of Psych Problem. 12:02 The history is obtained from the patient. pc 12:02 The patient presents to the emergency department with suicidal ideation, depression, a pc history of substance abuse. He is requesting admission to [facility]. He is an opioid addict, with both arms covered in track baker. He says he is sick of everything and wants to . The patient has experienced similar episodes in the past, multiple times. The patient has not recently seen a physician. Historical: - Allergies: sleep medications; - Home Meds: 1. Zoloft 50 mg oral tab 1 tab once daily 2. buspirone 10 mg Oral tab 2 times per day 3. Xanax 0.5 mg Oral tab twice a day - PMHx: opiate addiction; Hepatitis C; Depression; Anxiety; - PSHx: none; - The history from nurses notes was reviewed: and I agree with what is documented. - Social history: Smoking status: Patient uses tobacco products, heavy tobacco smoker. No barriers to communication noted, The patient speaks fluent Macedonian, Speaks appropriately for age. - : The pt / caregiver states he / she is not on anticoagulants. Home medication list is obtained from the patient. - Hospitalizations: : No recent hospitalization is reported. - Exposure Risk Screening:: None identified. - Immunization history:: All immunizations up-to-date. - Family history: Not pertinent. - Social history:: the patient is a non-smoker, the patient drinks alcohol, the patient uses illicit drugs, including heroin, opiates. ROS: 12:02 All systems are negative except as listed. The psychiatric and neurological components pc are also addressed in the HPI. Exam: 12:02 General Appearance: alert, no acute distress. pc 12:02 ENT: ear, nose and throat normal, pharynx normal. 12:02 Eyes: pupils equal, round and reactive to light, extraocular motions intact. 12:02 Neck: The exam reveals no acute abnormalities. ROM is normal and painless. No nuchal rigidity is noted.. 12:02 Respiratory: breathing is even and unlabored, breath sounds are normal. 12:02 Cardiovascular: regular pulse rate, regular heart rhythm, normal heart sounds, equal and full pulses bilaterally. 12:02 Abdomen: soft, non-tender, no organomegaly, normal bowel sounds. 12:02 Skin: skin color is normal, warm, dry. 12:02 Extremities: are non-tender, without acute ROM abnormalities, track baker on forearms . 12:02 Neuro: alert, oriented to person, place and time, cranial nerves normal as tested, no motor deficits, no sensory deficits. 12:02 Psych: mood is normal, affect is appropriate. Vital Signs: 11:24 BP 109 / 70 RA Sitting (auto/lg); Pulse 90; Resp 20; Temp 97.0(O); Pulse Ox 99% on R/A; bnb Weight 72.57 kg / 159.99 lbs; Height 5 ft. 9 in. (175.26 cm) (R); Pain 0/10; 17:01 BP 107 / 58; Pulse 79; Resp 18; Temp 97.7(TE); Pulse Ox 97% on R/A; kcs 18:11 BP 105 / 60; Pulse 77; Resp 18; Temp 98.0(TE); Pulse Ox 98% on R/A; Pain 4/10; kcs 11:24 Body Mass Index 23.63 (72.57 kg, 175.26 cm) bnb MDM: 11:46 Consult PFS/PSA/Box Attacher ordered. kcs 11:46 Consult PFS/PSA/Box Attacher: Patient's case requires discussion with on-call kcs Psychiatrist ordered. 11:46 PSA/PFS to call Nursing Drill Press Operator For Metal, to enter patient data on [place] Safe Act if patient kcs involuntarily admitted or transferred for SI or HI ordered. 11:46 Confirm accurate psychiatric medication list and times of last dosage ordered. kcs 11:46 Detain Pt Until Medically/PFS Cleared ordered. kcs 11:48 Acetaminophen Level Ordered. EDMS 11:48 Basic Metabolic Profile Ordered. EDMS 11:48 Complete Blood Count Ordered. EDMS 11:48 Drug Eval Toxicology ED Only Ordered. EDMS 11:48 Ethyl Alcohol (ethanol) Ordered. EDMS 11:48 Liver Profile Ordered. EDMS 11:48 Salicylate Level Ordered. EDMS 11:48 Thyroid Stimulating Hormone Ordered. EDMS 11:56 REGULAR DIET PLASTIC CARTER+DIET ordered. EDMS 12:02 Differential diagnosis: suicidal ideation, Substance Abuse. Plan: labs, PFS eval. pc 12:08 Consult PFS/PSA/Box Attacher complete. ml4 12:08 Consult PFS/PSA/Box Attacher: Patient's case requires discussion with on-call ml4 Psychiatrist complete. 12:08 PSA/PFS to call Nursing Drill Press Operator For Metal, to enter patient data on [place] Safe Act if patient ml4 involuntarily admitted or transferred for SI or HI complete. 12:38 Acetaminophen Level Reviewed. pc 12:38 Basic Metabolic Profile Reviewed. pc 12:38 Complete Blood Count Reviewed. pc 12:38 Drug Eval Toxicology ED Only Reviewed. pc 12:38 Liver Profile Reviewed. pc 12:38 Salicylate Level Reviewed. pc 12:38 Ethyl Alcohol (ethanol) Reviewed. pc 12:38 Thyroid Stimulating Hormone Reviewed. pc 13:18 The patient has been medically cleared for psychiatric evaluation, admission and/or pc transfer. [place] Safe Act reporting: The patient poses a significant risk to self or others, and PSA/PFS has notified the Nursing Drill Press Operator For Metal and he/she will complete the required senior data warehouse architect. Data reviewed: old medical records, vital signs, nurses notes, lab test results. Test interpretation: LAB - all labs as ordered have been reviewed, interpreted and considered in the overall management of the clinical presentation;. The patient has been re-examined and re-evaluated. There is no appreciated change of the patient's symptoms at this time. Other consultation: The ED animal husbandry worker was notified and will evaluate the patient. 13:18 Disposition: The historical points, examination findings, and any diagnostic results pc supporting the provided diagnosis, were discussed with the patient or legal guardian. The need for further work-up and/or treatment in the hospital was explained. 13:45 Admit to [facility]: ordered. EDMS 13:48 PENDING SALE TO [facility] Payment Agreement was scanned into [employer] and attached to record. jp5 13:48 Financial registration complete. jp5 13:56 [facility] Legal paperwork was scanned into [employer] and attached to record. ml4 14:00 REGULAR DIET ordered. EDMS 16:23 REGULAR DIET PLASTIC CARTER+DIET ordered. EDMS Signatures: Dispatcher [employer] EDMS Pablo Alcazar MD MD pc Sleeman, Kacey RN RN Jennifer TaylorRN RN ck1 Teresa Brock, PSA PSA ml4 Hortensia Joseph jp5 The chart was reviewed and I authenticate all verbal orders and agree with the evaluation and treatment provided.Attachments: 13:48 PENDING SALE TO [facility] Payment Agreement jp5 Chart Complete MTDD
[2016-08-05 22:00] VITALS: BP 128/66
[2016-08-06 06:16] VITALS: BP 100/59
[2016-08-06] MEDS: NICOTINE 21MG/24HR 1 EA TRANSDERMAL TD SCH (08:15)
[2016-08-06] MEDS: SERTRALINE HCL 50 MG TAB PO SCH (08:16)
[2016-08-06] MEDS: busPIRone 10 MG TAB PO SCH ×2 (08:16→20:12)
[2016-08-06] MEDS: METHADONE 10 MG TAB (S0109) PO SCH (08:16)
[2016-08-06 10:43] VITALS: BP 109/62
[2016-08-06 18:00] VITALS: BP 128/72
[2016-08-06] MEDS: METHADONE 5 MG TAB (S0109) PO SCH (20:11)
[2016-08-06] MEDS ORDERED: traZODone 100 MG TAB PO SCH (21:00)
[2016-08-07 06:34] VITALS: BP 104/63
[2016-08-07] MEDS: NICOTINE 21MG/24HR 1 EA TRANSDERMAL TD SCH (08:04)
[2016-08-07] MEDS: busPIRone 10 MG TAB PO SCH ×2 (08:05→20:14)
[2016-08-07] MEDS: METHADONE 5 MG TAB (S0109) PO SCH ×2 (08:05→20:14)
[2016-08-07] MEDS: SERTRALINE HCL 50 MG TAB PO SCH (08:05)
--- NOTE | 2016-08-07 09:45 | IPN ---
DATE: 08/05/2016 SUBJECTIVE: "I'm feeling a little better, I don't have as much withdrawal and my anxiety is in better control." OBJECTIVE: Patient is improving slowly. His mood is somewhat improved from admission but continues depressed, anxious with psychomotor retardation and restricted affect. Patient states that he is motivated to stop using opiates and is making statements such as "I have to recover my family." Denies side effects from psychotropic medications. MENTAL STATUS EXAMINATION: Patient is dressed in [facility]. Patient is cooperative during the exam. Speech is slow and monotone. Mood is depressed and anxious. Affect is restricted. No delusions or hallucinations. Memory is fair. Patient is fully oriented. Associations are intact. Thinking is logical. Thought content is appropriate. Denies suicidal or homicidal ideation during the interview and contracts for safety while in the unit. Insight and judgment is limited. ASSESSMENT: 1. Opiate dependency, benzodiazepine dependency. 2. Depression with suicidal ideation. PLAN: 1. Continue with methadone 10 mg by mouth twice a day, will decrease tomorrow to 10 mg by mouth nightly. 2. Continue with Librium 10 mg by mouth three times a day. 3. Continue with Zoloft 50 mg by mouth daily. 4. Continue with BuSpar 10 mg by mouth twice a day. 5. Continue with trazodone 50 mg by mouth nightly as needed for insomnia.
[2016-08-07 09:57] VITALS: BP 136/77
--- NOTE | 2016-08-07 11:39 | IPNPDOC ---
[facility] Progress Note Progress Note DATE OF SERVICE: 08/07/16 HISTORY: Patient is 35-year-old male who presented to [facility] ER complaining withdrawal symptoms and suicidal ideation. Director Talent [employer] met with patient today to evaluate treatment progress on inpatient unit. Patient indicates withdrawal taper is helpful, states he is experiencing only minor withdrawal symptoms, states symptoms are manageable. Patient has been visible on unit, participating in unit activities, and is cooperative with staff. Patient rates current anxiety level 5/10, depression 2/10, denies suicidal and homicidal ideation, denies audiovisual hallucinations, and denies urge to engage in self-injurious behavior. Patient denies symptoms of irritability, panic, and mood lability. Patient denies physical pain and denies symptoms of craving or withdrawal at time of interaction. Patient reports improvement in energy level, ongoing challenges with concentration and focus, states appetite has improved, indicates he is sleeping well and denies nightmares symptoms. Patient informs press writer he continues to desire to participate in inpatient substance abuse treatment at [facility], indicates when ready, he plans to discharge to home of his mother where he will stay until entering rehabilitation. VITAL SIGNS: See below. NEW TEST RESULTS: Patient is hep C positive, history of head injury from 2006, benign lung nodule which was confirmed on 04/19/16, x-ray from 08/04/16 indicates he has a foreign body in his right antecubital area, states a needle broke off in his arm approximately 2 weeks ago, has reported history of low blood pressure , continues to deny symptoms of fever, chills, weakness, or fatigue. Labs on admission indicated low HCT, anion gap, ATR, and elevated chlorine and AST. Patient's UDS on admission was positive for opiates, TCAs, benzos, cocaine, and cannabinoids 08/04/16 EKG remain pending CURRENT MEDICATIONS: See below. MENTAL STATUS EXAMINATION: Patient is a 35-year-old male, father of 2 children, is pleasant and cooperative, of thin build, makes fair eye contact, ambulates with steady gait, displays adequate personal hygiene and is dressed in hospital clothing. Speech: Is of normal rate, rhythm, volume. Language skills are intact. Thought processes including: Clear, goal-directed. Thought content: Rational, logical Abstract reasoning: Appears intact Description of associations: Appear intact. Description of abnormal or psychotic thoughts: Denies hallucinations, delusions , preoccupation with violence, homicidal or suicidal ideation, and obsessions. Judgment: Poor. Insight: Poor. Orientation to time, place and person. Recent and remote memory: Immediate, short-term and long-term memory is intact. Attention span and concentration: Fair. Language: Normal. Fund of knowledge: Appears adequate. Mood: "Kind of down, ok." Appears moderately depressed, no mood lability noted, not irritable or agitated Affect: Blunted, congruent with mood DIAGNOSES: Mood disorder, unspecified, polysubstance use disorder, rule out MDD , rule out substance-induced mood disorder ASSESSMENT: Patient is adjusting well to unit, is attending groups, is visible, is engageable. Patient indicates current medication regimen is effective, denies medication side effects, and indicates withdrawal protocol is helpful and effective. Patient denies suicidal and homicidal thinking and is able to verbalize how to access supportive services on unit if needed. Patient indicates discharge plan is to substance abuse rehabilitation at [facility] , plans to stay with mother while waiting to get into program, is aware he will be discharged once withdrawal taper has been completed and patient is stabilized. Patient indicates he also wants to participate in outpatient psychotherapy and medication management services after discharge from hospital. Will monitor patient's response to withdrawal taper, Zoloft, and BuSpar, will also monitor for side effects and evaluate patient safety, resolution of suicidal ideation, and discharge readiness. MANAGEMENT PLAN: Patient to continue withdrawal taper with plan to complete taper prior to patient discharge: methadone 5 mg PO BID and and Librium 10 mg po TID. Patient will also continue Zoloft 50 mg po q am, and BuSpar 10 mg po BID Maintain safety precautions Patient to attend groups and participate in unit programming to develop coping strategies Engage patient in discharge planning process and arrange meeting with support system to ensure safe discharge planning when appropriate food service coordinator to initiate referral to [facility] drug and alcohol rehabilitation program Patient to follow up with PCM upon discharge TIME SPENT: 35 minutes. Vital Signs Vital Signs Date Time Temp Pulse Resp B/P Pulse Ox O2 Delivery O2 Flow Rate FiO2 08/07/16 09:57 97.7 71 16 136/77 08/03/16 18:41 98 Room Air Current Medications Current Medications Acetaminophen (Tylenol Tab) 650 mg Q6HP PRN PO HEADACHE or DISCOMFORT; Start at 20:45; Stop 09/02/16 at 20:44 Al Hydrox/Mg Hydrox/Simethicone (Mylanta) 30 ml Q4HP PRN PO HEARTBURN/ INDIGESTION; Start 08/03/16 at 20:45; Stop 09/02/16 at 20:44 Alprazolam (Xanax) 0.25 mg BID PO ; Start 08/04/16 at 21:00; Stop 08/04/16 at 21 :00; Status DC Buspirone HCl (Buspar) 10 mg BID PO Last administered on 08/07/16 08:05; Start 08/03/16 at 21:00; Stop 09/02/16 at 20:59 Chlordiazepoxide (Librium) 10 mg TID PO Last administered on 08/07/16 08:05; Start 08/04/16 at 21:00; Stop 08/11/16 at 20:59 Home Med (Med Rec Complete!) ASDIRECTED XX ; Start 08/03/16 at 15:15; Stop at 15:15; Status DC Hydroxyzine HCl (Atarax) 50 mg Q4HP PRN PO ANXIETY/AGITATION; Start 08/04/16 at 14:30; Stop 09/03/16 at 14:29 Magnesium Hydroxide (Milk Of Magnesia) 30 ml DAILYPRN PRN PO CONSTIPATION; Start 08/03/16 at 20:45; Stop 09/02/16 at 20:44 Methadone HCl (Dolophine) 5 mg BID PO Last administered on 08/07/16 08:05; Start 08/06/16 at 21:00; Stop 08/13/16 at 20:59 Methadone HCl (Dolophine) 10 mg BID PO Last administered on 08/06/16 08:16; Start 08/04/16 at 21:00; Stop 08/06/16 at 09:11; Status DC Nicotine (Nicoderm Cq 21mg) 1 patch DAILY TD Last administered on 08/07/16 08: 04; Start 08/04/16 at 09:00; Stop 09/03/16 at 08:59 Sertraline HCl (Zoloft) 50 mg DAILY PO Last administered on 08/07/16 08:05; Start 08/04/16 at 09:00; Stop 09/03/16 at 08:59 Trazodone HCl (Desyrel) 50 mg QHSP PRN PO INSOMNIA; Start 08/03/16 at 20:45; Stop 08/06/16 at 09:16; Status DC Trazodone HCl (Desyrel) 100 mg QHS PO ; Start 08/06/16 at 21:00; Stop 08/06/16 at 21:00; Status DC Allergies Coded Allergies: No Known Drug Allergy (Verified Allergy, Unknown, 12/11/15) Mckenzie Zuleta Aug 07, 2016 11:38
--- NOTE | 2016-08-07 16:52 | IPN ---
DATE: 08/06/2016 SUBJECTIVE: "I'm feeling somewhat better." OBJECTIVE: Patient continues on the methadone taper for opioid withdrawal. Patient is experiencing very mild symptoms of opioid withdrawal. Patient is sleeping well. Is more motivated and insightful. Denies side effects from the medications. Reports that wants to continue his treatment for chemical dependency as outpatient when he is discharged from our unit. MENTAL STATUS EXAMINATION: Patient is dressed in [facility]. Patient is cooperative. Has fair eye contract. Speech is normal in rate, volume, articulation and spontaneous. Mood is depressed and anxious, but improving. Affect is congruent with mood. No evidence of delusions or hallucinations. Memory is fair. Patient is fully oriented. Associations are intact. Thinking is logical. Thought content is appropriate. Patient is able to contract for safety and denies suicidal or homicidal ideation during the interview. Insight and judgment is limited. ASSESSMENT: 1. Opiate dependency. 2. Benzodiazepine abuse. 3. Substance abuse and mood disorder. 4. Depression with suicidal ideation. PLAN: 1. Decrease methadone to 5 mg by mouth twice a day. 2. Continue with Librium 10 mg by mouth three times a day. 3. Continue with Zoloft 50 mg by mouth daily. 4. Continue with BuSpar 10 mg by mouth twice a day.
[2016-08-07 18:00] VITALS: BP 117/74
[2016-08-08 06:30] VITALS: BP 103/63
[2016-08-08] MEDS: SERTRALINE HCL 50 MG TAB PO SCH (08:10)
[2016-08-08] MEDS: NICOTINE 21MG/24HR 1 EA TRANSDERMAL TD SCH (08:10)
[2016-08-08] MEDS: busPIRone 10 MG TAB PO SCH ×2 (08:10→20:08)
[2016-08-08] MEDS: METHADONE 5 MG TAB (S0109) PO SCH ×2 (08:11→20:09)
[2016-08-08 09:51] VITALS: BP 130/75
[2016-08-08 18:00] VITALS: BP 111/68
[2016-08-09 06:36] VITALS: BP 126/72
[2016-08-09] MEDS: SERTRALINE HCL 50 MG TAB PO SCH (08:16)
[2016-08-09] MEDS: METHADONE 5 MG TAB (S0109) PO SCH (08:17)
[2016-08-09] MEDS: NICOTINE 21MG/24HR 1 EA TRANSDERMAL TD SCH (08:17)
[2016-08-09] MEDS: busPIRone 10 MG TAB PO SCH ×2 (08:17→20:24)
--- NOTE | 2016-08-09 09:33 | IPNPDOC ---
[facility] Progress Note Progress Note DATE OF SERVICE: 08/08/16 HISTORY: Patient is a 35-year-old male who presented to [facility] yesterday complaining of withdrawal symptoms from benzodiazepines and opiates, indicated he was experiencing suicidal ideation secondary to withdrawal symptom discomfort , today denies having plan or intent to harm self. Patient was last evaluated in the emergency room in 03/2016, has 1 prior admission to inpatient psychiatric unit from 12/10-12/16/15, has a history of being seen in the emergency room at previous times as well due to symptoms of anxiety, insomnia, drug and alcohol withdrawal. Patient rates current anxiety level of 8/10, depression 5/10, denies current thoughts of suicidal or homicidal ideation, denies audiovisual hallucinations, and denies urge to engage in self-injurious behavior. Patient indicates he currently feels "sad about my life and how I was living, I was living in a crack house," indicates he is now homeless. Patient informs instructional writer he has been feeling depressed and anxious "for weeks," notes recent exacerbation of the following symptoms: suicidal ideation, depression, anxiety, reduced sleep, reduced appetite, substance abuse, hopelessness/ helplessness, medication noncompliance, reduced concentration, and relationship tension. Patient indicates a major source of his stress at this time is related to his not being able to see his children, ages 2 and 3. Patient denies a history of discomfort in social settings, feels he does not struggle with impulse control challenges, denies compulsive behavior, endorses "a little" irritability adding, "I don't like stupidity and repetition," denies history of unsanctioned violence, and denies having access to weapons. Patient notes his sleep is generally fine but reports symptoms of insomnia when going through withdrawal. Patient indicates he is currently going through withdrawal for opiates, indicates he also takes prescribed benzodiazepines on a daily basis. Patient states he has been taking Suboxone 8 mg, two strips per day, which she has purchased on the street, last dose was 2 days ago, last used heroin IV, 1 g , "a few" weeks ago. Patient is currently unemployed and indicates he is homeless, has been sanctioned by [facility] for leaving substance abuse rehabilitation. SUBJECTIVE: Patient is calm and cooperative with interview today. He is brought in affect and reports improved mood since admission. Patient is medication compliant. He denies medication side effects. Patient is happy to be on an opiate withdrawal medication protocol. He reports this withdrawal has been dramatically less painful. Patient reports good benefit from groups and his hospitalization in general. Patient denies SI and HI. Patient denies AH and VH. Patient has made no bizarre or inappropriate statements nor has he displayed any bizarre or inappropriate behaviors. No signs of psychosis reported or observed. Patient reports sleep and appetite are within normal limits. OBJECTIVE: VITAL SIGNS: See below. NEW TEST RESULTS: See below. CURRENT MEDICATIONS: See below. MENTAL STATUS EXAMINATION: Patient is a 35-year old male, who is pleasant, cooperative, well kempt, thin build. Speech: Is normal in rate, volume, and articulation, and is coherent and spontaneous. Language skills are intact. Thought processes including: clear, Goal directed. Thought content: logical. Description of abnormal or psychotic thoughts: No hallucinations, delusions, preoccupation with violence, homicidal or suicidal ideation, and obsessions. Judgment: fair Insight: fair Orientation to time, place and person. Recent and remote memory: Immediate, short-term and long-term memory is intact. Attention span and concentration: good Language: Normal. Fund of knowledge: adequate Mood: anxious Affect: broad ASSESSMENT: -Mood disorder, unspecified. -Opiate dependency. -Benzodiazepine abuse. PLAN: 1. Continue the methadone taper for opioid withdrawal. Methadone currently at 5 mg by mouth BID. 2. Continue with Librium taper, currently at 10 mg by mouth 3 times a day. 3. Continue with Zoloft 50 mg by mouth daily. 4. Continue with BuSpar 10 mg by mouth twice a day. TIME SPENT: 30 minutes. Vital Signs Vital Signs Date Time Temp Pulse Resp B/P Pulse Ox O2 Delivery O2 Flow Rate FiO2 08/09/16 08:39 Room Air 08/09/16 08:17 62 18 08/09/16 06:36 97.0 126/72 08/03/16 18:41 98 Current Medications Current Medications Acetaminophen (Tylenol Tab) 650 mg Q6HP PRN PO HEADACHE or DISCOMFORT; Start at 20:45; Stop 09/02/16 at 20:44 Al Hydrox/Mg Hydrox/Simethicone (Mylanta) 30 ml Q4HP PRN PO HEARTBURN/ INDIGESTION; Start 08/03/16 at 20:45; Stop 09/02/16 at 20:44 Alprazolam (Xanax) 0.25 mg BID PO ; Start 08/04/16 at 21:00; Stop 08/04/16 at 21 :00; Status DC Buspirone HCl (Buspar) 10 mg BID PO Last administered on 08/09/16 08:17; Start 08/03/16 at 21:00; Stop 09/02/16 at 20:59 Chlordiazepoxide (Librium) 10 mg TID PO Last administered on 08/09/16 08:16; Start 08/04/16 at 21:00; Stop 08/11/16 at 20:59 Home Med (Med Rec Complete!) ASDIRECTED XX ; Start 08/03/16 at 15:15; Stop at 15:15; Status DC Hydroxyzine HCl (Atarax) 50 mg Q4HP PRN PO ANXIETY/AGITATION; Start 08/04/16 at 14:30; Stop 09/03/16 at 14:29 Magnesium Hydroxide (Milk Of Magnesia) 30 ml DAILYPRN PRN PO CONSTIPATION; Start 08/03/16 at 20:45; Stop 09/02/16 at 20:44 Methadone HCl (Dolophine) 5 mg BID PO Last administered on 08/09/16 08:17; Start 08/06/16 at 21:00; Stop 08/13/16 at 20:59 Methadone HCl (Dolophine) 10 mg BID PO Last administered on 08/06/16 08:16; Start 08/04/16 at 21:00; Stop 08/06/16 at 09:11; Status DC Nicotine (Nicoderm Cq 21mg) 1 patch DAILY TD Last administered on 08/08/16 08: 10; Start 08/04/16 at 09:00; Stop 09/03/16 at 08:59 Sertraline HCl (Zoloft) 50 mg DAILY PO Last administered on 08/09/16 08:16; Start 08/04/16 at 09:00; Stop 09/03/16 at 08:59 Trazodone HCl (Desyrel) 50 mg QHSP PRN PO INSOMNIA; Start 08/03/16 at 20:45; Stop 08/06/16 at 09:16; Status DC Trazodone HCl (Desyrel) 100 mg QHS PO ; Start 08/06/16 at 21:00; Stop 08/06/16 at 21:00; Status DC Allergies Coded Allergies: No Known Drug Allergy (Verified Allergy, Unknown, 12/11/15) NADEEM GEORGE MD Aug 09, 2016 09:33 Patient is a -year old male, who is pleasant, cooperative, well kempt, tall, overweight, thin, elderly, obese, frail build. Speech: Is [pressured, tangential, circumstantial, flight of ideas, normal in rate, volume, and articulation, and is coherent and spontaneous. Language skills are intact. Thought processes including: clear, Not goal-directed or Goal directed. Thought content: irrational, logical, illogical, tangential, paranoid. Abstract reasoning, and computation: . Description of associations: loose, tangential, circumstantial, intact. Description of abnormal or psychotic thoughts: hallucinations, delusions, preoccupation with violence, homicidal or suicidal ideation, and obsessions. Judgment: fair, good, very limited, poor,. Insight: very limited, good, fair. poor. Orientation to time, place and person. Recent and remote memory: Immediate, short-term and long-term memory is intact. Attention span and concentration: Poor, good, fair. Language: Normal. Fund of knowledge: adequate, intact, poor, fair, good. Mood: irrational, elated, irritable, distracted, depressed, anxious, restricted , neutral, fully communicative. Affect: appropriate, reactive, flat, constricted , animated, irrational, expansive, restricted, depressed, anxious, agitated, hypomania, lability. ASSESSMENT: PLAN: TIME SPENT: 30 minutes. Vital Signs Vital Signs Date Time Temp Pulse Resp B/P Pulse Ox O2 Delivery O2 Flow Rate FiO2 08/09/16 08:39 Room Air 08/09/16 08:17 62 18 08/09/16 06:36 97.0 126/72 08/03/16 18:41 98 Current Medications Current Medications Acetaminophen (Tylenol Tab) 650 mg Q6HP PRN PO HEADACHE or DISCOMFORT; Start at 20:45; Stop 09/02/16 at 20:44 Al Hydrox/Mg Hydrox/Simethicone (Mylanta) 30 ml Q4HP PRN PO HEARTBURN/ INDIGESTION; Start 08/03/16 at 20:45; Stop 09/02/16 at 20:44 Alprazolam (Xanax) 0.25 mg BID PO ; Start 08/04/16 at 21:00; Stop 08/04/16 at 21 :00; Status DC Buspirone HCl (Buspar) 10 mg BID PO Last administered on 08/09/16 08:17; Start 08/03/16 at 21:00; Stop 09/02/16 at 20:59 Chlordiazepoxide (Librium) 10 mg TID PO Last administered on 08/09/16 08:16; Start 08/04/16 at 21:00; Stop 08/11/16 at 20:59 Home Med (Med Rec Complete!) ASDIRECTED XX ; Start 08/03/16 at 15:15; Stop at 15:15; Status DC Hydroxyzine HCl (Atarax) 50 mg Q4HP PRN PO ANXIETY/AGITATION; Start 08/04/16 at 14:30; Stop 09/03/16 at 14:29 Magnesium Hydroxide (Milk Of Magnesia) 30 ml DAILYPRN PRN PO CONSTIPATION; Start 08/03/16 at 20:45; Stop 09/02/16 at 20:44 Methadone HCl (Dolophine) 5 mg BID PO Last administered on 08/09/16 08:17; Start 08/06/16 at 21:00; Stop 08/13/16 at 20:59 Methadone HCl (Dolophine) 10 mg BID PO Last administered on 08/06/16 08:16; Start 08/04/16 at 21:00; Stop 08/06/16 at 09:11; Status DC Nicotine (Nicoderm Cq 21mg) 1 patch DAILY TD Last administered on 08/08/16 08: 10; Start 08/04/16 at 09:00; Stop 09/03/16 at 08:59 Sertraline HCl (Zoloft) 50 mg DAILY PO Last administered on 08/09/16 08:16; Start 08/04/16 at 09:00; Stop 09/03/16 at 08:59 Trazodone HCl (Desyrel) 50 mg QHSP PRN PO INSOMNIA; Start 08/03/16 at 20:45; Stop 08/06/16 at 09:16; Status DC Trazodone HCl (Desyrel) 100 mg QHS PO ; Start 08/06/16 at 21:00; Stop 08/06/16 at 21:00; Status DC Allergies Coded Allergies: No Known Drug Allergy (Verified Allergy, Unknown, 12/11/15) NADEEM GEORGE MD Aug 09, 2016 09:33
[2016-08-09 10:16] LABS: ALT 89 IU/L (0-55); GGT 12 IU/L (0-65); HAPTOGLOBIN 210 mg/dL (34-200); HEPATITIS C QUANTITATION 76320 IU/mL (.); HEPATITIS C VIRUS GENOTYPE 3 (.); NECROINFLAM SCORE 0.42 (0.00-0.17); NECROINFLAMM GRADE A1-A2 (.); TOTAL BILIRUBIN 0.1 mg/dL (0.0-1.2)
[2016-08-09] MEDS: NICOTINE POLACRILEX 2 MG GUM PO PRN ×4 (10:27→22:50)
--- NOTE | 2016-08-09 12:43 | IPNPDOC ---
[facility] Progress Note Progress Note DATE OF SERVICE: 08/09/16 HISTORY: Patient is 35-year-old male who presented to [facility] ER complaining withdrawal symptoms and suicidal ideation. Baggage Security Checker met with patient today to evaluate treatment progress on inpatient unit. Patient indicates withdrawal taper remains helpful, states he is experiencing withdrawal symptoms, states symptoms are generally manageable. Patient has been visible on unit, participating in unit activities, and is cooperative with staff. Patient rates current anxiety level 3/10, depression 2/10, denies suicidal and homicidal ideation, denies audiovisual hallucinations, and denies urge to engage in self- injurious behavior. Patient denies symptoms of irritability, panic, and mood lability. Patient denies reports symptoms of craving or withdrawal secondary to methadone taper. Patient reports reduced energy level with reduced methadone, is experiencing ongoing challenges with concentration and focus, states appetite has improved. Patient states he is sleeping well and denies nightmares symptoms. Patient informs securities underwriter he continues to desire to participate in inpatient substance abuse treatment at [facility], notes when ready, he plans to discharge to home of his mother where he will stay until entering rehabilitation treatment. VITAL SIGNS: See below. NEW TEST RESULTS: Patient is hep C positive, history of head injury from 2006, benign lung nodule which was confirmed on 04/19/16, x-ray from 08/04/16 indicates he has a foreign body in his right antecubital area, states a needle broke off in his arm approximately 2 weeks ago, has reported history of low blood pressure , continues to deny symptoms of fever, chills, weakness, or fatigue. Labs on admission indicated low HCT, anion gap, ATR, and elevated chlorine and AST. Patient's UDS on admission was positive for opiates, TCAs, benzos, cocaine, and cannabinoids 08/04/16 EKG remain pending CURRENT MEDICATIONS: See below. MENTAL STATUS EXAMINATION: Patient is a 35-year-old male, father of 2 children, is pleasant and cooperative, of thin build, makes fair eye contact, ambulates with steady gait, displays adequate personal hygiene and is dressed in hospital clothing. Speech: Is of normal rate, rhythm, volume. Language skills are intact. Thought processes including: Clear, goal-directed. Thought content: Rational, logical Abstract reasoning: Appears intact Description of associations: Appear intact. Description of abnormal or psychotic thoughts: Denies hallucinations, delusions , preoccupation with violence, homicidal or suicidal ideation, and obsessions. Judgment: Poor. Insight: Poor. Orientation to time, place and person. Recent and remote memory: Immediate, short-term and long-term memory is intact. Attention span and concentration: Fair. Language: Normal. Fund of knowledge: Appears adequate. Mood: "Ok." Continues to appear moderately depressed, no mood lability noted, not irritable or agitated Affect: Blunted, congruent with mood DIAGNOSES: Mood disorder, unspecified, polysubstance use disorder, rule out MDD , rule out substance-induced mood disorder ASSESSMENT: Patient is adjusting to unit, is attending groups, is visible, is engageable. Patient indicates current medication regimen is effective, denies medication side effects, and indicates withdrawal protocol is helpful and effective. Patient denies suicidal and homicidal thinking and is able to verbalize how to access supportive services on unit if needed. Patient indicates discharge plan is to attend substance abuse rehabilitation at [facility], plans to stay with mother while waiting to get into program, is aware he will be discharged once withdrawal taper has been completed and patient is stabilized. Patient indicates he also wants to participate in outpatient psychotherapy and medication management services after discharge from hospital. Will monitor patient's response to withdrawal taper, Zoloft, and BuSpar, will also monitor for side effects and evaluate patient safety, resolution of suicidal ideation, and discharge readiness. MANAGEMENT PLAN: Patient to continue withdrawal taper with plan to complete taper prior to patient discharge: reduce methadone to 5 mg PO q hs, decrease Librium 10 mg po to BID. Patient will continue Zoloft 50 mg po q am, and BuSpar 10 mg po BID Maintain safety precautions Patient to attend groups and participate in unit programming to develop coping strategies Engage patient in discharge planning process and arrange meeting with support system to ensure safe discharge planning when appropriate administrative services coordinator to initiate referral to [facility] drug and alcohol rehabilitation program Patient to follow up with PCM upon discharge TIME SPENT: 35 minutes. Vital Signs Vital Signs Date Time Temp Pulse Resp B/P Pulse Ox O2 Delivery O2 Flow Rate FiO2 08/09/16 08:39 Room Air 08/09/16 08:17 62 18 08/09/16 06:36 97.0 126/72 08/03/16 18:41 98 Current Medications Current Medications Acetaminophen (Tylenol Tab) 650 mg Q6HP PRN PO HEADACHE or DISCOMFORT; Start at 20:45; Stop 09/02/16 at 20:44 Al Hydrox/Mg Hydrox/Simethicone (Mylanta) 30 ml Q4HP PRN PO HEARTBURN/ INDIGESTION; Start 08/03/16 at 20:45; Stop 09/02/16 at 20:44 Alprazolam (Xanax) 0.25 mg BID PO ; Start 08/04/16 at 21:00; Stop 08/04/16 at 21 :00; Status DC Buspirone HCl (Buspar) 10 mg BID PO Last administered on 08/09/16 08:17; Start 08/03/16 at 21:00; Stop 09/02/16 at 20:59 Chlordiazepoxide (Librium) 10 mg TID PO Last administered on 08/09/16 08:16; Start 08/04/16 at 21:00; Stop 08/11/16 at 20:59 Home Med (Med Rec Complete!) ASDIRECTED XX ; Start 08/03/16 at 15:15; Stop at 15:15; Status DC Hydroxyzine HCl (Atarax) 50 mg Q4HP PRN PO ANXIETY/AGITATION; Start 08/04/16 at 14:30; Stop 09/03/16 at 14:29 Magnesium Hydroxide (Milk Of Magnesia) 30 ml DAILYPRN PRN PO CONSTIPATION; Start 08/03/16 at 20:45; Stop 09/02/16 at 20:44 Methadone HCl (Dolophine) 5 mg BID PO Last administered on 08/09/16 08:17; Start 08/06/16 at 21:00; Stop 08/13/16 at 20:59 Methadone HCl (Dolophine) 10 mg BID PO Last administered on 08/06/16 08:16; Start 08/04/16 at 21:00; Stop 08/06/16 at 09:11; Status DC Nicotine (Nicoderm Cq 21mg) 1 patch DAILY TD Last administered on 08/08/16 08: 10; Start 08/04/16 at 09:00; Stop 08/09/16 at 10:03; Status DC Nicotine (Nicorette) 4 mg Q2HP PRN PO NICOTINE WITHDRAWAL Last administered on 08/09/16 10:27; Start 08/09/16 at 10:15; Stop 09/08/16 at 10:14 Sertraline HCl (Zoloft) 50 mg DAILY PO Last administered on 08/09/16 08:16; Start 08/04/16 at 09:00; Stop 09/03/16 at 08:59 Trazodone HCl (Desyrel) 50 mg QHSP PRN PO INSOMNIA; Start 08/03/16 at 20:45; Stop 08/06/16 at 09:16; Status DC Trazodone HCl (Desyrel) 100 mg QHS PO ; Start 08/06/16 at 21:00; Stop 08/06/16 at 21:00; Status DC Allergies Coded Allergies: No Known Drug Allergy (Verified Allergy, Unknown, 12/11/15) Mckenzie Zuleta Aug 09, 2016 12:43
[2016-08-09 18:00] VITALS: BP_SYST 138; BP_SYST 8; BP_DIAS 57
[2016-08-09] MEDS ORDERED: METHADONE 5 MG TAB (S0109) PO SCH (21:00)
[2016-08-10] MEDS: NICOTINE POLACRILEX 2 MG GUM PO PRN ×2 (06:33→20:19)
[2016-08-10 06:34] VITALS: BP 118/63
[2016-08-10] MEDS: busPIRone 10 MG TAB PO SCH ×2 (08:31→20:18)
[2016-08-10] MEDS: SERTRALINE HCL 50 MG TAB PO SCH (08:31)
[2016-08-10 10:00] VITALS: BP 121/66
--- NOTE | 2016-08-10 17:39 | IPNPDOC ---
[facility] Progress Note Progress Note DATE OF SERVICE: 08/10/16 HISTORY: Patient is 35-year-old male who presented to [facility] ER complaining withdrawal symptoms and suicidal ideation. Senior Software Qa Engineer met with patient today to evaluate treatment progress on inpatient unit. Patient indicates withdrawal taper remains helpful, states he is experiencing withdrawal symptoms of fatigue and restless legs symptoms, states symptoms are generally manageable. Patient has been visible on unit, participating in unit activities, and is cooperative with staff. Patient rates current anxiety level 3/10, depression 2/10, denies suicidal and homicidal ideation, denies audiovisual hallucinations, and denies urge to engage in self-injurious behavior. Patient denies symptoms of irritability, panic, and mood lability. Patient denies symptoms of craving secondary to methadone taper. Patient reports reduced energy level with reduced methadone, is experiencing ongoing challenges with concentration and focus, states appetite has improved. Patient states he is sleeping well and denies nightmares symptoms. Patient informs chart writer he continues to desire to participate in inpatient substance abuse treatment at [facility], plans to discharge to home of his mother where he will stay until entering rehabilitation treatment. VITAL SIGNS: See below. NEW TEST RESULTS: Patient is hep C positive, history of head injury from 2006, benign lung nodule which was confirmed on 04/19/16, x-ray from 08/04/16 indicates he has a foreign body in his right antecubital area, states a needle broke off in his arm approximately 2 weeks ago, has reported history of low blood pressure , continues to deny symptoms of fever, chills, weakness, or fatigue. Labs on admission indicated low HCT, anion gap, ATR, and elevated chlorine and AST. Patient's UDS on admission was positive for opiates, TCAs, benzos, cocaine, and cannabinoids 08/04/16 EKG remain pending CURRENT MEDICATIONS: See below. MENTAL STATUS EXAMINATION: Patient is a 35-year-old male, father of 2 children, is pleasant and cooperative, of thin build, makes fair eye contact, ambulates with steady gait, displays adequate personal hygiene and is dressed in hospital clothing. Speech: Is of normal rate, rhythm, volume. Language skills are intact. Thought processes including: Clear, goal-directed. Thought content: Rational, logical Abstract reasoning: Appears intact Description of associations: Appear intact. Description of abnormal or psychotic thoughts: Denies hallucinations, delusions , preoccupation with violence, homicidal or suicidal ideation, and obsessions. Judgment: Poor, some improvement. Insight: Poor, some improvement. Orientation to time, place and person. Recent and remote memory: Immediate, short-term and long-term memory is intact. Attention span and concentration: Fair. Language: Normal. Fund of knowledge: Appears adequate. Mood: "Ok." Continues to appear moderately depressed, no mood lability noted, not irritable or agitated Affect: Blunted, congruent with mood DIAGNOSES: Mood disorder, unspecified, polysubstance use disorder, rule out MDD , rule out substance-induced mood disorder ASSESSMENT: Patient continues to adjust to unit, is attending groups, is visible , is engageable. Patient indicates current medication regimen is effective, denies medication side effects, and indicates withdrawal protocol is helpful and effective. Patient denies need or dosing adjustment to BuSpar or Zoloft, indicates medications are effective when he is not using or in the withdrawal process. Patient denies suicidal and homicidal thinking and is able to verbalize how to access supportive services on unit if needed. Patient indicates discharge plan is to attend substance abuse rehabilitation at [facility], plans to stay with mother while waiting to get into program, is aware he will be discharged Sunday once withdrawal taper has been completed and patient is stabilized, care team coordinator scheduler has been asked to arrange family meeting. Patient indicates he also wants to participate in outpatient psychotherapy and medication management services after discharge from hospital. Will continue to monitor patient's response to withdrawal taper, Zoloft, and BuSpar, will also monitor for side effects and evaluate patient safety, resolution of suicidal ideation, and discharge readiness. MANAGEMENT PLAN: Patient to continue withdrawal taper with plan to complete taper prior to patient discharge. Patient will continue Zoloft 50 mg po q am, and BuSpar 10 mg po BID Maintain safety precautions Patient to attend groups and participate in unit programming to develop coping strategies Engage patient in discharge planning process and arrange meeting with support system to ensure safe discharge planning when appropriate value analysis coordinator to initiate referral to [facility] drug and alcohol rehabilitation program Patient to follow up with PCM upon discharge TIME SPENT: 25 minutes. Vital Signs Vital Signs Date Time Temp Pulse Resp B/P Pulse Ox O2 Delivery O2 Flow Rate FiO2 08/10/16 06:34 96.2 62 18 118/63 08/09/16 08:39 Room Air Current Medications Current Medications Acetaminophen (Tylenol Tab) 650 mg Q6HP PRN PO HEADACHE or DISCOMFORT Last administered on 08/09/16 22:49; Start 08/03/16 at 20:45; Stop 09/02/16 at 20:44 Al Hydrox/Mg Hydrox/Simethicone (Mylanta) 30 ml Q4HP PRN PO HEARTBURN/ INDIGESTION; Start 08/03/16 at 20:45; Stop 09/02/16 at 20:44 Alprazolam (Xanax) 0.25 mg BID PO ; Start 08/04/16 at 21:00; Stop 08/04/16 at 21 :00; Status DC Buspirone HCl (Buspar) 10 mg BID PO Last administered on 08/10/16 08:31; Start 08/03/16 at 21:00; Stop 09/02/16 at 20:59 Chlordiazepoxide (Librium) 10 mg BID PO Last administered on 08/10/16 08:31; Start 08/10/16 at 09:00; Stop 08/10/16 at 17:29; Status DC Chlordiazepoxide (Librium) 10 mg BID PO ; Start 08/10/16 at 21:00; Stop at 23:00; Status UNV Chlordiazepoxide (Librium) 10 mg QHS PO ; Start 08/12/16 at 20:00; Stop at 23:00; Status UNV Chlordiazepoxide (Librium) 10 mg TID PO Last administered on 08/09/16 08:16; Start 08/04/16 at 21:00; Stop 08/09/16 at 14:23; Status DC Chlordiazepoxide (Librium) 10 mg TID PO Last administered on 08/09/16 20:24; Start 08/09/16 at 16:00; Stop 08/09/16 at 23:00; Status DC Home Med (Med Rec Complete!) ASDIRECTED XX ; Start 08/03/16 at 15:15; Stop at 15:15; Status DC Hydroxyzine HCl (Atarax) 50 mg Q4HP PRN PO ANXIETY/AGITATION; Start 08/04/16 at 14:30; Stop 09/03/16 at 14:29 Magnesium Hydroxide (Milk Of Magnesia) 30 ml DAILYPRN PRN PO CONSTIPATION; Start 08/03/16 at 20:45; Stop 09/02/16 at 20:44 Methadone HCl (Dolophine) 5 mg BID PO Last administered on 08/09/16 08:17; Start 08/06/16 at 21:00; Stop 08/09/16 at 14:23; Status DC Methadone HCl (Dolophine) 5 mg QHS PO Last administered on 08/09/16 20:24; Start 08/09/16 at 21:00; Stop 08/10/16 at 17:21; Status DC Methadone HCl (Dolophine) 5 mg QHS PO ; Start 08/10/16 at 21:00; Stop 08/10/16 at 21:00; Status DC Methadone HCl (Dolophine) 5 mg QHS PO ; Start 08/10/16 at 21:00; Stop 08/10/16 at 23:00 Methadone HCl (Dolophine) 10 mg BID PO Last administered on 08/06/16 08:16; Start 08/04/16 at 21:00; Stop 08/06/16 at 09:11; Status DC Nicotine (Nicoderm Cq 21mg) 1 patch DAILY TD Last administered on 08/08/16 08: 10; Start 08/04/16 at 09:00; Stop 08/09/16 at 10:03; Status DC Nicotine (Nicorette) 4 mg Q2HP PRN PO NICOTINE WITHDRAWAL Last administered on 08/10/16 06:33; Start 08/09/16 at 10:15; Stop 09/08/16 at 10:14 Sertraline HCl (Zoloft) 50 mg DAILY PO Last administered on 08/10/16 08:31; Start 08/04/16 at 09:00; Stop 09/03/16 at 08:59 Trazodone HCl (Desyrel) 50 mg QHSP PRN PO INSOMNIA; Start 08/03/16 at 20:45; Stop 08/06/16 at 09:16; Status DC Trazodone HCl (Desyrel) 100 mg QHS PO ; Start 08/06/16 at 21:00; Stop 08/06/16 at 21:00; Status DC Allergies Coded Allergies: No Known Drug Allergy (Verified Allergy, Unknown, 12/11/15) Mckenzie Zuleta Aug 10, 2016 17:39
[2016-08-10 21:00] VITALS: BP 122/70
[2016-08-10] MEDS ORDERED: METHADONE 5 MG TAB (S0109) PO SCH ×2 (21:00)
[2016-08-10 21:17] VITALS: BP 120/62
[2016-08-11 06:43] VITALS: BP 104/64
[2016-08-11] MEDS: busPIRone 10 MG TAB PO SCH ×2 (09:01→20:52)
[2016-08-11] MEDS: SERTRALINE HCL 50 MG TAB PO SCH (09:01)
[2016-08-11] MEDS: NICOTINE POLACRILEX 2 MG GUM PO PRN ×2 (09:01→12:48)
[2016-08-11 11:15] VITALS: BP 114/59
--- NOTE | 2016-08-11 14:39 | IPNPDOC ---
[facility] Progress Note Progress Note DATE OF SERVICE: 08/11/16 HISTORY: Patient is 35-year-old male who presented to [facility] ER complaining withdrawal symptoms and suicidal ideation. Molder met with patient today to evaluate treatment progress on inpatient unit. Patient indicates withdrawal taper remains helpful, states he is experiencing withdrawal symptoms of fatigue , anxiety, and restless legs symptoms, states symptoms remain manageable. Patient has been visible on unit, participating in unit activities, and is cooperative with staff. Patient rates current anxiety level 6/10, depression 0/ 10, denies suicidal and homicidal ideation, denies audiovisual hallucinations, and denies urge to engage in self-injurious behavior. Patient denies symptoms of irritability, panic, and mood lability. Patient denies symptoms of craving, is aware he has completed methadone taper and will finish Librium taper Sunday evening. Patient indicates he feels positive about completing taper and states he continues to plan to participate in inpatient substance abuse rehabilitation when bed is available. Patient reports reduced energy level with discontinued methadone and reduced Librium, is experiencing ongoing challenges with concentration and focus though notes symptoms are manageable, states appetite has improved. Patient denies challenges with sleep and denies nightmare symptoms. Patient states he remains focused on discharge to home with his mother where he will stay until entering [facility] rehabilitation program. VITAL SIGNS: See below. NEW TEST RESULTS: Patient is hep C positive, history of head injury from 2006, benign lung nodule which was confirmed on 04/19/16, x-ray from 08/04/16 indicates he has a foreign body in his right antecubital area, states a needle broke off in his arm approximately 2 weeks ago, has reported history of low blood pressure , continues to deny symptoms of fever, chills, weakness, or fatigue. Labs on admission indicated low HCT, anion gap, ATR, and elevated chlorine and AST. Patient's UDS on admission was positive for opiates, TCAs, benzos, cocaine, and cannabinoids 08/04/16 EKG remains pending CURRENT MEDICATIONS: See below. MENTAL STATUS EXAMINATION: Patient is a 35-year-old male, father of 2 children, is pleasant and cooperative, of thin build, makes fair eye contact, ambulates with steady gait, displays adequate personal hygiene and is dressed in hospital clothing. Speech: Is of normal rate, rhythm, volume. Language skills are intact. Thought processes including: Clear, goal-directed. Thought content: Rational, logical Abstract reasoning: Appears intact Description of associations: Appear intact. Description of abnormal or psychotic thoughts: Denies hallucinations, delusions , preoccupation with violence, homicidal or suicidal ideation, and obsessions. Judgment: Limited, some improvement. Insight: Limited, but continues to improve Orientation to time, place and person. Recent and remote memory: Immediate, short-term and long-term memory is intact. Attention span and concentration: Fair. Language: Normal. Fund of knowledge: Appears adequate. Mood: "Ok, pretty good." Appears less depressed today, appears mildly anxious, no mood lability noted, not irritable or agitated Affect: Constricted, brightens at times, congruent with mood DIAGNOSES: Mood disorder, unspecified, polysubstance use disorder, rule out MDD , rule out substance-induced mood disorder ASSESSMENT: Patient continues to adjust to unit, is attending groups, is visible , is engageable. Patient indicates current medication regimen is effective, denies medication side effects, and indicates withdrawal protocol is helpful, reports some associated anxiety and fatigue secondary to taper, is aware he has hydroxyzine available to him PRN. Patient Mckenzie to deny need or dosing adjustment to BuSpar or Zoloft, indicates medications are effective when he is not using or in the withdrawal process. Patient denies suicidal and homicidal thinking and is able to verbalize how to access supportive services on unit if needed. Patient indicates discharge plan is to attend substance abuse rehabilitation at [facility], plans to stay with mother while waiting to get into program, is aware he will be discharged Sunday once withdrawal taper has been completed and is stabilized, cosmetic account coordinator has been asked to arrange family meeting. Patient indicates he also wants to participate in outpatient psychotherapy and medication management services after discharge from hospital. Will continue to monitor patient's response to withdrawal taper, Zoloft, and BuSpar, will also monitor for side effects and evaluate patient safety, resolution of suicidal ideation, and discharge readiness. MANAGEMENT PLAN: Patient to continue withdrawal taper with plan to complete taper prior to patient discharge. Patient will continue Zoloft 50 mg po q am, and BuSpar 10 mg po BID. Maintain safety precautions Patient to attend groups and participate in unit programming to develop coping strategies Engage patient in discharge planning process and arrange meeting with support system to ensure safe discharge planning when appropriate online marketing coordinator to initiate referral to [facility] drug and alcohol rehabilitation program Patient to follow up with PCM upon discharge TIME SPENT: 35 minutes. Vital Signs Vital Signs Date Time Temp Pulse Resp B/P Pulse Ox O2 Delivery O2 Flow Rate FiO2 08/11/16 11:15 96.5 68 16 114/59 08/09/16 08:39 Room Air Current Medications Current Medications Acetaminophen (Tylenol Tab) 650 mg Q6HP PRN PO HEADACHE or DISCOMFORT Last administered on 08/09/16 22:49; Start 08/03/16 at 20:45; Stop 09/02/16 at 20:44 Al Hydrox/Mg Hydrox/Simethicone (Mylanta) 30 ml Q4HP PRN PO HEARTBURN/ INDIGESTION; Start 08/03/16 at 20:45; Stop 09/02/16 at 20:44 Alprazolam (Xanax) 0.25 mg BID PO ; Start 08/04/16 at 21:00; Stop 08/04/16 at 21 :00; Status DC Buspirone HCl (Buspar) 10 mg BID PO Last administered on 08/11/16 09:01; Start 08/03/16 at 21:00; Stop 09/02/16 at 20:59 Chlordiazepoxide (Librium) 10 mg BID PO Last administered on 08/10/16 08:31; Start 08/10/16 at 09:00; Stop 08/10/16 at 17:29; Status DC Chlordiazepoxide (Librium) 10 mg BID PO Last administered on 08/11/16 09:01; Start 08/10/16 at 21:00; Stop 08/11/16 at 23:00 Chlordiazepoxide (Librium) 10 mg QHS PO ; Start 08/12/16 at 20:00; Stop at 23:00 Chlordiazepoxide (Librium) 10 mg TID PO Last administered on 08/09/16 08:16; Start 08/04/16 at 21:00; Stop 08/09/16 at 14:23; Status DC Chlordiazepoxide (Librium) 10 mg TID PO Last administered on 08/09/16 20:24; Start 08/09/16 at 16:00; Stop 08/09/16 at 23:00; Status DC Home Med (Med Rec Complete!) ASDIRECTED XX ; Start 08/03/16 at 15:15; Stop at 15:15; Status DC Hydroxyzine HCl (Atarax) 50 mg Q4HP PRN PO ANXIETY/AGITATION; Start 08/04/16 at 14:30; Stop 09/03/16 at 14:29 Magnesium Hydroxide (Milk Of Magnesia) 30 ml DAILYPRN PRN PO CONSTIPATION; Start 08/03/16 at 20:45; Stop 09/02/16 at 20:44 Methadone HCl (Dolophine) 5 mg BID PO Last administered on 08/09/16 08:17; Start 08/06/16 at 21:00; Stop 08/09/16 at 14:23; Status DC Methadone HCl (Dolophine) 5 mg QHS PO Last administered on 08/09/16 20:24; Start 08/09/16 at 21:00; Stop 08/10/16 at 17:21; Status DC Methadone HCl (Dolophine) 5 mg QHS PO ; Start 08/10/16 at 21:00; Stop 08/10/16 at 21:00; Status DC Methadone HCl (Dolophine) 5 mg QHS PO Last administered on 08/10/16 20:19; Start 08/10/16 at 21:00; Stop 08/10/16 at 23:00; Status DC Methadone HCl (Dolophine) 10 mg BID PO Last administered on 08/06/16 08:16; Start 08/04/16 at 21:00; Stop 08/06/16 at 09:11; Status DC Nicotine (Nicoderm Cq 21mg) 1 patch DAILY TD Last administered on 08/08/16 08: 10; Start 08/04/16 at 09:00; Stop 08/09/16 at 10:03; Status DC Nicotine (Nicorette) 4 mg Q2HP PRN PO NICOTINE WITHDRAWAL Last administered on 08/11/16 12:48; Start 08/09/16 at 10:15; Stop 09/08/16 at 10:14 Sertraline HCl (Zoloft) 50 mg DAILY PO Last administered on 08/11/16 09:01; Start 08/04/16 at 09:00; Stop 09/03/16 at 08:59 Trazodone HCl (Desyrel) 50 mg QHSP PRN PO INSOMNIA; Start 08/03/16 at 20:45; Stop 08/06/16 at 09:16; Status DC Trazodone HCl (Desyrel) 100 mg QHS PO ; Start 08/06/16 at 21:00; Stop 08/06/16 at 21:00; Status DC Allergies Coded Allergies: No Known Drug Allergy (Verified Allergy, Unknown, 12/11/15) Mckenzie Zuleta Aug 11, 2016 14:39
--- NOTE | 2016-08-11 17:06 | ECGEPIP ---
Stationary ECG Study [facility] Test Date: 2016-08-11 Pat Name: JULIETTE REHMAN Department: Room: [place] [address] Gender: M Enterprise Systems Architect: : 1980 Requested By: Jane Sanchez Order Number: [id number] Reading MD: Selvin Christianson Measurements Intervals [place] Rate: 61 P: 54 MA: 208 QRS: 59 QRSD: 105 T: 40 QT: 423 QTc: 429 Interpretive Statements SINUS RHYTHM Early repolarization. No prior ECG available for comparison at the time of interpretation. Electronically Signed On 08-11-2016 16:52:12 EST by Selvin Christianson
[2016-08-11 18:00] VITALS: BP 96/59
[2016-08-12 06:34] VITALS: BP 135/63
[2016-08-12] MEDS: NICOTINE POLACRILEX 2 MG GUM PO PRN ×2 (08:41→16:58)
[2016-08-12] MEDS: SERTRALINE HCL 50 MG TAB PO SCH (08:41)
[2016-08-12] MEDS: busPIRone 10 MG TAB PO SCH ×2 (08:41→20:09)
[2016-08-12 09:56] VITALS: BP 95/51
[2016-08-12 13:48] VITALS: BP 99/58
[2016-08-12] MEDS: GABAPENTIN 300 MG CAP PO SCH ×2 (16:58→20:09)
[2016-08-12 18:10] VITALS: BP 130/90
[2016-08-13 06:40] VITALS: BP 102/63
[2016-08-13] MEDS: NICOTINE POLACRILEX 2 MG GUM PO PRN ×3 (08:34→20:32)
[2016-08-13] MEDS: SERTRALINE HCL 50 MG TAB PO SCH (08:34)
[2016-08-13] MEDS: GABAPENTIN 300 MG CAP PO SCH ×3 (08:34→20:30)
[2016-08-13] MEDS: busPIRone 10 MG TAB PO SCH ×2 (08:34→20:30)
[2016-08-13 11:52] VITALS: BP 130/75
[2016-08-13 18:00] VITALS: BP 132/67
[2016-08-14] MEDS: NICOTINE POLACRILEX 2 MG GUM PO PRN ×2 (06:20→11:16)
[2016-08-14 06:34] VITALS: BP 88/55
[2016-08-14] MEDS ORDERED: NICO2GUM62 PO (08:58)
[2016-08-14] MEDS: GABAPENTIN 300 MG CAP PO SCH ×2 (09:12→14:22)
[2016-08-14] MEDS: SERTRALINE HCL 50 MG TAB PO SCH (09:12)
[2016-08-14] MEDS: busPIRone 10 MG TAB PO SCH (09:12)
[2016-08-14] MEDS ORDERED: SERT-141 PO (14:49)
[2016-08-14] MEDS ORDERED: ZOLO50TA PO ×2 (14:59→15:08)
[2016-08-14] MEDS ORDERED: GABA300C3 PO (15:08)
[2016-08-14] MEDS ORDERED: BUSP10TA PO (15:08)
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
[2016-08-15] MEDS ORDERED: SERTRALINE HCL 50 MG TAB PO SCH (09:00)
== END 2016-08-14 15:20 | disposition home or self-care (01) | DRG 753 ==
LOC: M ED 11:22 → M PSY 18:25
PROVIDERS: ADMIT Psychiatry & Neurology Psychiatry; ATTEND Psychiatry & Neurology Psychiatry
DX: F39 Unspecified mood [affective] disorder (principal); B18.2 Chronic viral hepatitis C; F19.94 Other psychoactive substance use, unspecified with psychoactive substance-induced mood disorder; F14.90 Cocaine use, unspecified, uncomplicated; F11.90 Opioid use, unspecified, uncomplicated; F17.200 Nicotine dependence, unspecified, uncomplicated

== ENCOUNTER → 2016-08-28 | Outpatient (CLI) | payer OTHER ==
[~2016-08-28] MED LIST changes: +BUSP10TA PO; +GABA300C3 PO; +NICO2GUM62 PO; -SERT-141 PO; +SERT50TA PO; +XANA0.25 PO; +ZOLO50TA PO
== END ==
LOC: M OUTALCOH 10:55
PROVIDERS: ATTEND Psychiatry & Neurology Psychiatry
DX: Z13.9 Encounter for screening, unspecified (principal); F11.20 Opioid dependence, uncomplicated

== ENCOUNTER 2016-09-04 13:57 | Emergency (ER) | payer OTHER ==
[~2016-09-04] VITALS: Ht 175.3 cm; Wt 77.1 kg
[2016-09-04] MEDS ORDERED: ACETAMINOPHEN 325 MG TAB PO ONE (16:00)
--- NOTE | 2016-09-04 16:41 | REP ---
Clinical: Pain and swelling. Technique: AP, lateral, bilateral oblique views of the left ankle. Findings: Mild lateral soft tissue swelling is appreciated. No acute fracture or dislocation. Joint spaces and ankle mortise are intact. Impression: Mild lateral swelling. Signed by Ulises Lindsey MD 09/04/2016 04:33 P
--- NOTE | 2016-09-04 16:55 | REP ---
Clinical: pain and swelling. Technique: Rodriguez scale and color Doppler evaluation using linear high frequency transducer. Findings: Ultrasound examination of the left lower extremity deep venous structures from the common femoral vein to the popliteal vein demonstrates normal compressibility flow and wave patterns in response to respiration and augmentation. There is no evidence for deep venous thrombosis. Impression: No evidence for deep venous thrombosis. Signed by Ulises Lindsey MD 09/04/2016 04:46 P
[2016-09-04] MEDS ORDERED: CYCL10TA PO (16:56)
[2016-09-04] MEDS ORDERED: MOBI7.5T10 PO (16:56)
[2016-09-04 17:08] VITALS: BP 108/66
== END 2016-09-04 17:14 | disposition home or self-care (01) ==
LOC: M ED 16:05
DX: S93.402A Sprain of unspecified ligament of left ankle, initial encounter (principal); W00.0XXA Fall on same level due to ice and snow, initial encounter; Y92.89 Other specified places as the place of occurrence of the external cause; Y93.89 Activity, other specified; Y99.8 Other external cause status; F41.9 Anxiety disorder, unspecified; B19.20 Unspecified viral hepatitis C without hepatic coma; F32.9 Major depressive disorder, single episode, unspecified; Z87.891 Personal history of nicotine dependence; Z79.899 Other long term (current) drug therapy

== ENCOUNTER 2016-09-13 14:26 | Outpatient (RCR) | payer OTHER ==
[~2016-09-13 14:26] MED LIST changes: +CYCL10TA PO; +GABA-282 PO; -GABA300C3 PO; +MOBI7.5T10 PO
== END 2016-09-15 ==
LOC: M OUTALCOH 14:26
PROVIDERS: ATTEND Psychiatry & Neurology Psychiatry
DX: Z13.9 Encounter for screening, unspecified (principal); F11.20 Opioid dependence, uncomplicated; F17.200 Nicotine dependence, unspecified, uncomplicated

== ENCOUNTER → 2016-09-15 | Outpatient (CLI) | payer OTHER ==
[~2016-09-15] MED LIST changes: -GABA-282 PO; +GABA300C3 PO
--- NOTE | 2016-09-15 09:37 | REP ---
Clinical: Follow up pulmonary nodules and thymic lesion. Comparison: 02/03/2016 Findings: The bilateral lung yanez are well-aerated and clear. No pulmonary consolidation, significant nodule or mass lesion is appreciated. The small 6 mm nodular density along the left major fissure is unchanged and prior PET-CT demonstrated no significant uptake. No pleural effusion/reaction or pneumothorax. Tracheobronchial tree is patent. Mediastinum again demonstrates presumed residual thymic tissue in the anterior mediastinum which is essentially unchanged in appearance and size. Thoracic aorta, heart and pericardium appear normal. No obvious axillary, mediastinal or hilar adenopathy. Surrounding musculoskeletal structures are intact. Impression: 1. No acute mediastinal or pleuroparenchymal process. 2. Stable 6 mm nodular density along the left major fissure unchanged and without hypermetabolic activity on recent prior PET-CT. 3. Anterior mediastinal soft tissue unchanged in appearance and likely representing residual/hyperplastic thymic tissue. Signed by Ulises Lindsey MD 09/15/2016 09:29 A
== END ==
LOC: M RAD 07:32
PROVIDERS: ATTEND Internal Medicine Pulmonary Disease
DX: R91.8 Other nonspecific abnormal finding of lung field (principal)

== ENCOUNTER → 2016-10-13 | Outpatient (REF) | payer OTHER ==
[~2016-10-13] MED LIST changes: +GABA-282 PO; -GABA300C3 PO
[2016-10-13 12:03] LABS: BASO # 0.1 K/mm3 (0.0-0.2); BASO % 0.7 % (0.0-1.0); EOS # 0.3 K/mm3 (0.0-0.50); EOS % 3.5 % (0.0-3.0); LARGE UNSTAINED CELL # 0.1 K/mm3 (0.0-0.4); LARGE UNSTAINED CELL % 1.6 % (0.0-4.0); LYMPH # 1.8 K/mm3 (1.5-4.5); MEAN CORPUSCULAR HEMOGLOBIN 30.7 pg (27.0-33.0); MEAN CORPUSCULAR HGB CONC 33.4 g/dl (32.0-36.5); MEAN CORPUSCULAR VOLUME 91.7 fl (80.0-96.0); MONO # 0.4 K/mm3 (0.0-0.8); MONO % 4.7 % (0.0-5.0); NEUTROPHILS # 5.7 K/mm3 (1.8-7.7); NEUTROPHILS % 68.5 % (36.0-66.0); PLATELET COUNT, AUTOMATED 281 k/mm3 (150-450); RED CELL DISTRIBUTION WIDTH 13.4 % (11.5-14.5); WHITE BLOOD COUNT 8.4 K/mm3 (4.0-10.0)
[2016-10-13 12:10] LABS: VITAMIN B12 LEVEL 427 PG/ML (247-911)
[2016-10-13 12:17] LABS: ALBUMIN 4.2 GM/DL (3.2-5.2); ALBUMIN/GLOBULIN RATIO 1.17 (1.00-1.93); ALKALINE PHOSPHATASE 70 U/L (45-117); ALT/SGPT 62 U/L (12-78); ANION GAP 11 MEQ/L (8-16); AST/SGOT 25 U/L (15-37); BILIRUBIN,TOTAL 0.7 MG/DL (0.2-1.0); BLOOD UREA NITROGEN 17 MG/DL (7-18); CARBON DIOXIDE LEVEL 23 MEQ/L (21-32); CHLORIDE LEVEL 106 MEQ/L (98-107); CREATININE FOR GFR 1.05 MG/DL (0.70-1.30); FREE T4 1.32 NG/DL (0.76-1.46); GLOMERULAR FILTRATION RATE > 60.0 (>60); GLUCOSE, FASTING 100 MG/DL (70-105); SODIUM LEVEL 140 MEQ/L (136-145); TOTAL PROTEIN 7.8 GM/DL (6.4-8.2)
== END ==
LOC: M SFHCPLAZ 09:18
PROVIDERS: ATTEND Physician Assistant Medical
DX: F41.8 Other specified anxiety disorders (principal)

== ENCOUNTER → 2016-11-27 | Outpatient (CLI) | payer OTHER | LOC: M OUTALCOH 08:14 | PROVIDERS: ATTEND Psychiatry & Neurology Psychiatry | DX: Z13.9 Encounter for screening, unspecified (principal); F11.20 Opioid dependence, uncomplicated ==

== ENCOUNTER 2016-12-13 11:00 | Outpatient (RCR) | payer OTHER ==
[~2016-12-13 11:00] MED LIST changes: +MOBI4TAB PO; -MOBI7.5T10 PO
== END 2016-12-15 ==
LOC: M OUTALCOH 11:00
PROVIDERS: ATTEND Psychiatry & Neurology Psychiatry
DX: F11.20 Opioid dependence, uncomplicated (principal); F17.200 Nicotine dependence, unspecified, uncomplicated

== ENCOUNTER → 2016-12-20 | Outpatient (REF) | payer OTHER ==
[~2016-12-20] MED LIST changes: +BUPR15TASR; +SUBO8MIS
[2016-12-20 13:15] LABS: BASO % 0.6 % (0.0-1.0); EOS # 0.3 K/mm3 (0.0-0.50); EOS % 4.2 % (0.0-3.0); LARGE UNSTAINED CELL # 0.1 K/mm3 (0.0-0.4); LARGE UNSTAINED CELL % 2.1 % (0.0-4.0); LYMPH % 28.5 % (24.0-44.0); MEAN CORPUSCULAR HEMOGLOBIN 31.2 pg (27.0-33.0); MEAN CORPUSCULAR HGB CONC 33.6 g/dl (32.0-36.5); MEAN CORPUSCULAR VOLUME 92.7 fl (80.0-96.0); MONO # 0.3 K/mm3 (0.0-0.8); MONO % 4.5 % (0.0-5.0); NEUTROPHILS % 60.2 % (36.0-66.0); PLATELET COUNT, AUTOMATED 241 k/mm3 (150-450); RED CELL DISTRIBUTION WIDTH 12.6 % (11.5-14.5); WHITE BLOOD COUNT 6.6 K/mm3 (4.0-10.0)
[2016-12-20 14:14] LABS: ALBUMIN 3.8 GM/DL (3.2-5.2); ALBUMIN/GLOBULIN RATIO 1.27 (1.00-1.93); ALKALINE PHOSPHATASE 57 U/L (45-117); ALT/SGPT 24 U/L (12-78); ANION GAP 6 MEQ/L (8-16); AST/SGOT 17 U/L (15-37); BILIRUBIN,TOTAL 0.5 MG/DL (0.2-1.0); BLOOD UREA NITROGEN 11 MG/DL (7-18); CALCIUM LEVEL 8.9 MG/DL (8.5-10.1); CARBON DIOXIDE LEVEL 28 MEQ/L (21-32); CHLORIDE LEVEL 107 MEQ/L (98-107); CREATININE FOR GFR 0.97 MG/DL (0.70-1.30); GLOMERULAR FILTRATION RATE > 60.0 (>60); GLUCOSE, FASTING 64 MG/DL (70-105); SODIUM LEVEL 141 MEQ/L (136-145); TOTAL PROTEIN 6.8 GM/DL (6.4-8.2)
[2016-12-24 00:15] LABS: HEPATITIS C QUANTITATION 965800 IU/mL (.); HEPATITIS C VIRUS GENOTYPE 3 (.)
== END ==
LOC: M LABDRAW1 12:16
PROVIDERS: ATTEND Nurse Practitioner Adult Health
DX: B18.2 Chronic viral hepatitis C (principal)

== ENCOUNTER → 2017-01-15 | Outpatient (RCR) | payer OTHER | LOC: M OUTALCOH 12-20 10:56 | PROVIDERS: ATTEND Psychiatry & Neurology Psychiatry | DX: F11.20 Opioid dependence, uncomplicated (principal); F17.200 Nicotine dependence, unspecified, uncomplicated ==

== ENCOUNTER 2017-02-14 08:45 | Outpatient (RCR) | payer OTHER ==
[~2017-02-14 08:45] MED LIST changes: -BUPR15TASR; -SUBO8MIS
== END 2017-02-15 ==
LOC: M OUTALCOH 08:45
PROVIDERS: ATTEND Psychiatry & Neurology Psychiatry
DX: F11.20 Opioid dependence, uncomplicated (principal); F17.200 Nicotine dependence, unspecified, uncomplicated

== ENCOUNTER 2017-03-16 13:00 | Outpatient (RCR) | payer MEDICAID, OTHER | END 2017-03-17 | LOC: M OUTALCOH 13:00 | PROVIDERS: ATTEND Psychiatry & Neurology Psychiatry | DX: F11.20 Opioid dependence, uncomplicated (principal); F17.210 Nicotine dependence, cigarettes, uncomplicated ==

== ENCOUNTER → 2017-03-19 | Outpatient (CLI) | payer MEDICAID, OTHER ==
[~2017-03-19] MED LIST changes: +BUPR15TASR; +SUBO8MIS
--- NOTE | 2017-03-19 20:36 | REP ---
Noncontrast chest CT: History: Abnormal lung findings. Comparison chest CT study September 15, 2016. This was read as showing a 6 mm nodular density along the major fissure on the left, unchanged from February 03, 2016. There is also increased soft tissue density in the anterior mediastinum. CT findings: There has been no change in the size or appearance of the 6 mm pleural-based left lower lobe density adjacent to the major fissure in the interval since the February 03, [address] study. No new pulmonary nodule is appreciated. Lung yanez are otherwise clear. There is some residual thymic tissue in the anterior mediastinum, which is also stable over this interval. No mediastinal adenopathy is seen. No pleural or pericardial effusion is noted. Visualized upper abdominal structures are unremarkable. No extrathoracic mass or adenopathy is seen. No bony destructive lesion is appreciated. Impression: Stable CT findings unchanged from CT study February 03, 2016. Repeat CT scanning could be considered in 1 year. Signed by Willam Davies MD 03/20/2017 09:30 A
== END ==
LOC: M RAD 17:46
PROVIDERS: ATTEND Internal Medicine Pulmonary Disease
DX: R91.8 Other nonspecific abnormal finding of lung field (principal)

== ENCOUNTER 2017-04-09 18:12 | Emergency (ER) | payer MEDICAID, OTHER ==
[2017-04-09 18:12] VITALS: BP 127/75
[~2017-04-09 18:12] MED LIST changes: -BUPR15TASR; -SUBO8MIS
[2017-04-09] MEDS ORDERED: BUPR15TASR (18:26)
[2017-04-09] MEDS ORDERED: SUBO8MIS (18:26)
== END 2017-04-09 21:48 | disposition left against medical advice (07) ==
LOC: M ED 18:12
DX: Z53.21 Procedure and treatment not carried out due to patient leaving prior to being seen by health care provider (principal)

== ENCOUNTER → 2017-04-25 | Outpatient (CLI) | payer OTHER ==
[~2017-04-25] MED LIST changes: +BUPR15TASR; +SUBO8MIS
== END ==
LOC: M RAD 12:39
PROVIDERS: ATTEND Physician Assistant Medical
DX: M51.16 Intervertebral disc disorders with radiculopathy, lumbar region (principal)

== ENCOUNTER 2017-05-18 03:31 | Emergency (ER) | payer OTHER ==
[~2017-05-18] VITALS: Ht 175.3 cm; Wt 72.7 kg
[2017-05-18] MEDS ORDERED: MOTR200T44 PO (03:40)
[2017-05-18] MEDS ORDERED: TIZA1POW XX (03:40)
[2017-05-18] MEDS ORDERED: METHOCARBAMOL 1,000 MG/10 ML VIAL (J2800) IM ONE (06:15)
[2017-05-18] MEDS ORDERED: KETOROLAC 60 MG/2 ML VIAL (J1885) IM ONE (06:15)
[2017-05-18] MEDS ORDERED: METH1TAB40 PO (09:14)
[2017-05-18] MEDS ORDERED: KETO10TAB PO (09:14)
[2017-05-18 09:31] VITALS: BP 118/58
== END 2017-05-18 09:32 | disposition home or self-care (01) ==
LOC: M ED 03:31
DX: M54.42 Lumbago with sciatica, left side (principal); G89.29 Other chronic pain; Z87.442 Personal history of urinary calculi; F17.210 Nicotine dependence, cigarettes, uncomplicated; Z79.899 Other long term (current) drug therapy
CPT/HCPCS: 96372; 99284; J1885; J2800

== ENCOUNTER → 2017-06-21 | Outpatient (CLI) | payer OTHER | LOC: M SMT 11:12 | DX: M51.36 Other intervertebral disc degeneration, lumbar region (principal); M25.551 Pain in right hip | CPT/HCPCS: 72110 ==

== ENCOUNTER → 2017-07-10 | Outpatient (CLI) | payer OTHER | LOC: M RAD 13:28 | DX: M51.06 Intervertebral disc disorders with myelopathy, lumbar region (principal); M48.061 Spinal stenosis, lumbar region without neurogenic claudication; R93.7 Abnormal findings on diagnostic imaging of other parts of musculoskeletal system | CPT/HCPCS: 72148 ==

== ENCOUNTER 2017-08-15 14:10 | Emergency (ER) | payer OTHER | END 2017-08-15 14:50 | disposition left against medical advice (07) | LOC: M ED 14:10 | DX: Z53.21 Procedure and treatment not carried out due to patient leaving prior to being seen by health care provider (principal) ==

== ENCOUNTER 2017-08-15 15:43 | Emergency (ER) | payer OTHER | END 2017-08-15 16:54 | disposition home or self-care (01) | LOC: M ED 15:43 | DX: L03.113 Cellulitis of right upper limb (principal); B19.20 Unspecified viral hepatitis C without hepatic coma; M54.9 Dorsalgia, unspecified; Z87.442 Personal history of urinary calculi; F17.210 Nicotine dependence, cigarettes, uncomplicated; Z79.899 Other long term (current) drug therapy; Z79.01 Long term (current) use of anticoagulants | CPT/HCPCS: 99283 ==

== ENCOUNTER 2017-09-20 10:13 | Outpatient (RCR) | payer OTHER | END 2017-10-15 | LOC: M PT 10:13 | DX: Z51.89 Encounter for other specified aftercare (principal); M51.9 Unspecified thoracic, thoracolumbar and lumbosacral intervertebral disc disorder | CPT/HCPCS: 97010 ==

== ENCOUNTER 2017-10-18 08:32 | Outpatient (RCR) | payer OTHER | END 2017-11-15 | LOC: M PT 08:32 | DX: Z51.89 Encounter for other specified aftercare (principal); M51.9 Unspecified thoracic, thoracolumbar and lumbosacral intervertebral disc disorder | CPT/HCPCS: 97010 ==

== ENCOUNTER 2017-12-24 01:45 | Emergency (ER) | payer OTHER ==
[2017-12-24 07:26] LABS: BASO % 0.3 % (0.0-1.0); EOS # 0.1 10^3/uL (0.0-0.50); EOS % 1.3 % (0.0-3.0); HEMOGLOBIN 12.1 g/dl (13.5-17.5); IMMATURE GRANULOCYTE % 0.3 % (0-3.0); LYMPH # 1.6 10^3/uL (1.5-4.5); LYMPH % 14.6 % (24.0-44.0); MEAN CORPUSCULAR HEMOGLOBIN 29.6 pg (27.0-33.0); MEAN CORPUSCULAR HGB CONC 34.6 g/dl (32.0-36.5); MEAN CORPUSCULAR VOLUME 85.6 fl (80.0-96.0); MONO # 0.8 10^3/uL (0.0-0.8); MONO % 7.4 % (0.0-5.0); NEUTROPHILS # 8.5 10^3/uL (1.8-7.7); NEUTROPHILS % 76.1 % (36.0-66.0); PLATELET COUNT, AUTOMATED 206 10^3/uL (150-450); RED BLOOD COUNT 4.09 10^6/uL (4.30-6.10); RED CELL DISTRIBUTION WIDTH 13.1 % (11.5-14.5); WHITE BLOOD COUNT 11.1 10^3/uL (4.0-10.0)
[2017-12-24 07:47] LABS: ANION GAP 7 MEQ/L (8-16); BLOOD UREA NITROGEN 12 MG/DL (7-18); CALCIUM LEVEL 8.4 MG/DL (8.5-10.1); CARBON DIOXIDE LEVEL 28 MEQ/L (21-32); CHLORIDE LEVEL 102 MEQ/L (98-107); CREATININE FOR GFR 0.91 MG/DL (0.70-1.30); GLOMERULAR FILTRATION RATE > 60.0 (>60); GLUCOSE, FASTING 118 MG/DL (70-100); POTASSIUM SERUM 3.7 MEQ/L (3.5-5.1); SODIUM LEVEL 137 MEQ/L (136-145)
== END 2017-12-24 10:51 | disposition home or self-care (01) ==
LOC: M ED 01:45
DX: L03.116 Cellulitis of left lower limb (principal); F11.10 Opioid abuse, uncomplicated; B19.20 Unspecified viral hepatitis C without hepatic coma; M54.5 Low back pain; G89.29 Other chronic pain; Z87.442 Personal history of urinary calculi; F17.210 Nicotine dependence, cigarettes, uncomplicated; Z59.0 Homelessness
CPT/HCPCS: 80048

== ENCOUNTER 2018-01-02 19:36 | Emergency (ER) | payer OTHER ==
[2018-01-02] MEDS ORDERED: NALOXONE INJ 2 MG/2 ML SYRINGE (J2310) As Ordered ×2 (19:44)
[2018-01-02] MEDS: NALOXONE INJ 2 MG/2 ML SYRINGE (J2310) IM ×2 (19:53)
[2018-01-02 20:00] LABS: BEDSIDE GLUCOSE 81 MG/DL (70-105)
[2018-01-02 21:51] LABS: BASO # 0.1 10^3/uL (0.0-0.2); BASO % 0.8 % (0.0-1.0); EOS # 0.2 10^3/uL (0.0-0.50); EOS % 2.9 % (0.0-3.0); HEMATOCRIT 35.4 % (42.0-52.0); IMMATURE GRANULOCYTE % 0.4 % (0-3.0); LYMPH # 2.3 10^3/uL (1.5-4.5); MEAN CORPUSCULAR HEMOGLOBIN 29.9 pg (27.0-33.0); MEAN CORPUSCULAR HGB CONC 33.9 g/dl (32.0-36.5); MEAN CORPUSCULAR VOLUME 88.1 fl (80.0-96.0); MONO # 0.8 10^3/uL (0.0-0.8); MONO % 10.2 % (0.0-5.0); NEUTROPHILS # 4.1 10^3/uL (1.8-7.7); NEUTROPHILS % 54.7 % (36.0-66.0); PLATELET COUNT, AUTOMATED 335 10^3/uL (150-450); RED BLOOD COUNT 4.02 10^6/uL (4.30-6.10); RED CELL DISTRIBUTION WIDTH 13.2 % (11.5-14.5); WHITE BLOOD COUNT 7.5 10^3/uL (4.0-10.0)
[2018-01-02] MEDS: NS 1,000 ML IV ×2 (22:00)
[2018-01-02 22:12] LABS: AMPHETAMINES LEVEL URINE POSITIVE (NEGATIVE); BARBITURATES URINE NEGATIVE (NEGATIVE); BENZODIAZEPINES URINE NEGATIVE (NEGATIVE); CANNABINOIDS URINE POSITIVE (NEGATIVE); COCAINE METABOLITE URINE POSITIVE (NEGATIVE); METHADONE URINE NEGATIVE (NEGATIVE); OPIATES URINE POSITIVE (NEGATIVE); PHENCYCLIDINE URINE NEGATIVE (NEGATIVE)
[2018-01-02 22:15] LABS: LACTIC ACID SEPSIS PROTOCOL 0.7 MMOL/L (0.4-2.0)
[2018-01-02 22:28] LABS: ALBUMIN 3.3 GM/DL (3.2-5.2); ALBUMIN/GLOBULIN RATIO 0.79 (1.00-1.93); ALKALINE PHOSPHATASE 75 U/L (45-117); ALT/SGPT 61 U/L (12-78); ANION GAP 7 MEQ/L (8-16); AST/SGOT 47 U/L (7-37); BILIRUBIN,DIRECT 0.2 MG/DL (0.0-0.2); BILIRUBIN,TOTAL 0.6 MG/DL (0.2-1.0); BLOOD UREA NITROGEN 22 MG/DL (7-18); CALCIUM LEVEL 8.8 MG/DL (8.5-10.1); CARBON DIOXIDE LEVEL 28 MEQ/L (21-32); CHLORIDE LEVEL 104 MEQ/L (98-107); CPK CREATINE PHOSPHOKINASE 261 U/L (39-308); CREATININE FOR GFR 1.07 MG/DL (0.70-1.30); ETHYL ALCOHOL (ETHANOL) 0.004 % (0.000-0.010); GLOMERULAR FILTRATION RATE > 60.0 (>60); GLUCOSE, FASTING 90 MG/DL (70-100); POTASSIUM SERUM 3.9 MEQ/L (3.5-5.1); SALICYLATE LEVEL 2.8 MG/DL (5.0-30.0); SODIUM LEVEL 139 MEQ/L (136-145); TOTAL PROTEIN 7.5 GM/DL (6.4-8.2)
[2018-01-02 22:34] LABS: ACETAMINOPHEN LEVEL < 2.0 UG/ML (10.0-30.0)
[2018-01-03] MEDS ORDERED: AMMONIA AROMATIC INHALANT (FLOOR STOCK) As Ordered ×2 (00:12)
== END 2018-01-03 01:06 | disposition home or self-care (01) ==
LOC: M ED 01-03 01:06
DX: F11.10 Opioid abuse, uncomplicated (principal)
CPT/HCPCS: J2310

== ENCOUNTER 2018-01-27 19:59 | Inpatient (IN) | payer OTHER ==
[2018-01-27 21:07] LABS: HEMATOCRIT 39.3 % (42.0-52.0); MEAN CORPUSCULAR HEMOGLOBIN 29.7 pg (27.0-33.0); MEAN CORPUSCULAR HGB CONC 33.1 g/dl (32.0-36.5); MEAN CORPUSCULAR VOLUME 89.7 fl (80.0-96.0); PLATELET COUNT, AUTOMATED 206 10^3/uL (150-450); RED BLOOD COUNT 4.38 10^6/uL (4.30-6.10); RED CELL DISTRIBUTION WIDTH 13.8 % (11.5-14.5)
[2018-01-27 21:32] LABS: ALBUMIN 3.6 GM/DL (3.2-5.2); ALKALINE PHOSPHATASE 80 U/L (45-117); ALT/SGPT 39 U/L (12-78); ANION GAP 7 MEQ/L (8-16); AST/SGOT 25 U/L (7-37); BILIRUBIN,DIRECT 0.1 MG/DL (0.0-0.2); BILIRUBIN,TOTAL 0.4 MG/DL (0.2-1.0); BLOOD UREA NITROGEN 11 MG/DL (7-18); CALCIUM LEVEL 8.4 MG/DL (8.5-10.1); CARBON DIOXIDE LEVEL 27 MEQ/L (21-32); CHLORIDE LEVEL 109 MEQ/L (98-107); ETHYL ALCOHOL (ETHANOL) 0.005 % (0.000-0.010); GLOMERULAR FILTRATION RATE > 60.0 (>60); GLUCOSE, FASTING 120 MG/DL (70-100); POTASSIUM SERUM 3.5 MEQ/L (3.5-5.1); SALICYLATE LEVEL 2.8 MG/DL (5.0-30.0); SODIUM LEVEL 143 MEQ/L (136-145); TOTAL PROTEIN 7.2 GM/DL (6.4-8.2)
[2018-01-27 21:34] LABS: ACETAMINOPHEN LEVEL < 2.0 UG/ML (10.0-30.0); AMPHETAMINES LEVEL URINE POSITIVE (NEGATIVE); BARBITURATES URINE NEGATIVE (NEGATIVE); BENZODIAZEPINES URINE NEGATIVE (NEGATIVE); CANNABINOIDS URINE NEGATIVE (NEGATIVE); COCAINE METABOLITE URINE POSITIVE (NEGATIVE); METHADONE URINE NEGATIVE (NEGATIVE); OPIATES URINE POSITIVE (NEGATIVE); PHENCYCLIDINE URINE NEGATIVE (NEGATIVE)
[2018-01-27] MEDS ORDERED: traZODone 50 MG TAB PO (22:15)
[2018-01-27] MEDS ORDERED: MAALOX 30 ML SUSP *UDC PO (22:15)
[2018-01-27] MEDS ORDERED: MOM 30ML SUSPENSION UDC PO (22:15)
[2018-01-27] MEDS ORDERED: cloNIDine 0.1 MG TAB PO (22:15)
[2018-01-28] MEDS: LORazepam 2 MG TAB PO ×2 (00:33→08:15)
[2018-01-28] MEDS: SERTRALINE HCL 50 MG TAB PO ×3 (08:15→11:35)
[2018-01-28] MEDS: GABAPENTIN 300 MG CAP PO ×3 (11:22→21:13)
[2018-01-28] MEDS: LORazepam 1 MG TAB PO ×2 (12:33→21:13)
[2018-01-29] MEDS: GABAPENTIN 300 MG CAP PO ×3 (09:13→21:06)
[2018-01-29] MEDS: SERTRALINE HCL 50 MG TAB PO (09:13)
[2018-01-29] MEDS: LORazepam 1 MG TAB PO ×2 (09:14→21:06)
[2018-01-29] MEDS: NICOTINE 21MG/24HR 1 EA TRANSDERMAL TD (09:14)
[2018-01-29] MEDS: METHADONE 10 MG TAB (S0109) PO (17:24)
[2018-01-30] MEDS: SERTRALINE HCL 50 MG TAB PO (08:04)
[2018-01-30] MEDS: GABAPENTIN 300 MG CAP PO ×3 (08:04→20:12)
[2018-01-30] MEDS: NICOTINE 21MG/24HR 1 EA TRANSDERMAL TD (08:05)
[2018-01-30] MEDS: LORazepam 1 MG TAB PO (08:05)
[2018-01-30] MEDS: LORazepam 0.5 MG TAB PO ×2 (16:12→20:12)
[2018-01-30] MEDS: ACETAMINOPHEN TAB 650MG DOSE (2X325MG) PO (17:25)
[2018-01-31] MEDS: SERTRALINE HCL 50 MG TAB PO (08:17)
[2018-01-31] MEDS: GABAPENTIN 300 MG CAP PO ×3 (08:17→21:05)
[2018-01-31] MEDS: NICOTINE 21MG/24HR 1 EA TRANSDERMAL TD (08:18)
[2018-01-31] MEDS: LORazepam 0.5 MG TAB PO ×3 (08:21→21:06)
[2018-01-31] MEDS: IBUPROFEN 400 MG TAB PO ×2 (12:08→21:06)
[2018-02-01] MEDS: SERTRALINE HCL 50 MG TAB PO (08:17)
[2018-02-01] MEDS: GABAPENTIN 300 MG CAP PO (08:17)
== END 2018-02-01 12:45 | disposition home or self-care (01) | DRG 754 ==
LOC: M ED 19:59 → M ED INP 21:54 → M PSY 23:50
DX: F32.9 Major depressive disorder, single episode, unspecified (principal); R45.851 Suicidal ideations; Z59.0 Homelessness; F17.200 Nicotine dependence, unspecified, uncomplicated; B18.2 Chronic viral hepatitis C; R91.1 Solitary pulmonary nodule; F11.90 Opioid use, unspecified, uncomplicated; F14.90 Cocaine use, unspecified, uncomplicated; F15.90 Other stimulant use, unspecified, uncomplicated

== ENCOUNTER 2018-03-05 21:12 | Inpatient (IN) | payer MEDICAID, OTHER, SELFPAY ==
[2018-03-05 22:22] LABS: HEMATOCRIT 39.3 % (42.0-52.0); HEMOGLOBIN 13.2 g/dl (13.5-17.5); MEAN CORPUSCULAR HEMOGLOBIN 30.1 pg (27.0-33.0); MEAN CORPUSCULAR HGB CONC 33.6 g/dl (32.0-36.5); MEAN CORPUSCULAR VOLUME 89.7 fl (80.0-96.0); PLATELET COUNT, AUTOMATED 204 10^3/uL (150-450); RED BLOOD COUNT 4.38 10^6/uL (4.30-6.10); RED CELL DISTRIBUTION WIDTH 13.2 % (11.5-14.5); WHITE BLOOD COUNT 8.4 10^3/uL (4.0-10.0)
[2018-03-05 22:59] LABS: ACETAMINOPHEN LEVEL < 2.0 UG/ML (10.0-30.0); ALBUMIN 3.6 GM/DL (3.2-5.2); ALBUMIN/GLOBULIN RATIO 1.06 (1.00-1.93); ALKALINE PHOSPHATASE 74 U/L (45-117); ALT/SGPT 236 U/L (12-78); ANION GAP 6 MEQ/L (8-16); AST/SGOT 98 U/L (7-37); BILIRUBIN,DIRECT < 0.1 MG/DL (0.0-0.2); BILIRUBIN,TOTAL 0.3 MG/DL (0.2-1.0); BLOOD UREA NITROGEN 21 MG/DL (7-18); CALCIUM LEVEL 8.4 MG/DL (8.5-10.1); CARBON DIOXIDE LEVEL 30 MEQ/L (21-32); CHLORIDE LEVEL 107 MEQ/L (98-107); ETHYL ALCOHOL (ETHANOL) < 0.003 % (0.000-0.010); GLOMERULAR FILTRATION RATE > 60.0 (>60); GLUCOSE, FASTING 83 MG/DL (70-100); POTASSIUM SERUM 3.9 MEQ/L (3.5-5.1); SODIUM LEVEL 143 MEQ/L (136-145)
[2018-03-05] MEDS ORDERED: ACETAMINOPHEN TAB 650MG DOSE (2X325MG) PO (23:45)
[2018-03-05] MEDS ORDERED: MOM 30ML SUSPENSION UDC PO (23:45)
[2018-03-05] MEDS ORDERED: OLANZapine ORAL DISINTEGRATING TAB 5MG PO (23:45)
[2018-03-05] MEDS ORDERED: MAALOX 30 ML SUSP *UDC PO (23:45)
[2018-03-05] MEDS ORDERED: traZODone 50 MG TAB PO (23:45)
[2018-03-06 00:40] LABS: AMPHETAMINES LEVEL URINE NEGATIVE (NEGATIVE); BARBITURATES URINE NEGATIVE (NEGATIVE); BENZODIAZEPINES URINE POSITIVE (NEGATIVE); CANNABINOIDS URINE NEGATIVE (NEGATIVE); COCAINE METABOLITE URINE POSITIVE (NEGATIVE); METHADONE URINE NEGATIVE (NEGATIVE); OPIATES URINE NEGATIVE (NEGATIVE); PHENCYCLIDINE URINE NEGATIVE (NEGATIVE)
[2018-03-06] MEDS: NICOTINE 21MG/24HR 1 EA TRANSDERMAL TD (08:33)
[2018-03-07] MEDS: NICOTINE 21MG/24HR 1 EA TRANSDERMAL TD (09:00)
[2018-03-07] MEDS: cloNIDine 0.1 MG TAB PO ×2 (12:00→17:09)
[2018-03-07] MEDS ORDERED: hydrOXYzine 50 MG TAB PO (12:00)
[2018-03-08] MEDS: cloNIDine 0.1 MG TAB PO ×4 (06:00→17:49)
[2018-03-08 07:37] LABS: ALBUMIN 3.4 GM/DL (3.2-5.2); ALBUMIN/GLOBULIN RATIO 0.92 (1.00-1.93); ALKALINE PHOSPHATASE 68 U/L (45-117); ALT/SGPT 271 U/L (12-78); ANION GAP 6 MEQ/L (8-16); AST/SGOT 127 U/L (7-37); BILIRUBIN,TOTAL 0.3 MG/DL (0.2-1.0); BLOOD UREA NITROGEN 16 MG/DL (7-18); CALCIUM LEVEL 8.9 MG/DL (8.5-10.1); CARBON DIOXIDE LEVEL 28 MEQ/L (21-32); CHLORIDE LEVEL 107 MEQ/L (98-107); CREATININE FOR GFR 0.86 MG/DL (0.70-1.30); GLOMERULAR FILTRATION RATE > 60.0 (>60); GLUCOSE, FASTING 80 MG/DL (70-100); POTASSIUM SERUM 4.3 MEQ/L (3.5-5.1); SODIUM LEVEL 141 MEQ/L (136-145); TOTAL PROTEIN 7.1 GM/DL (6.4-8.2)
[2018-03-08] MEDS: NICOTINE 21MG/24HR 1 EA TRANSDERMAL TD (09:53)
[2018-03-08] MEDS: LORazepam 1 MG TAB PO ×2 (09:53→15:56)
[2018-03-09] MEDS: cloNIDine 0.1 MG TAB PO ×5 (06:00→23:15)
[2018-03-09] MEDS: NICOTINE 21MG/24HR 1 EA TRANSDERMAL TD (08:28)
[2018-03-09] MEDS: GABAPENTIN 300 MG CAP PO ×3 (09:11→19:57)
[2018-03-09] MEDS: LOPERAMIDE 2 MG CAP PO (09:11)
[2018-03-09] MEDS: BENZTROPINE 0.5 MG TAB PO ×2 (10:16→19:57)
[2018-03-09] MEDS: QUEtiapine FUMARATE 25 MG TAB PO (15:11)
[2018-03-09] MEDS: rOPINIRole 1MG TAB PO (21:49)
[2018-03-10] MEDS: cloNIDine 0.1 MG TAB PO ×5 (06:00→23:18)
[2018-03-10] MEDS: NICOTINE 21MG/24HR 1 EA TRANSDERMAL TD (09:00)
[2018-03-10] MEDS: BENZTROPINE 0.5 MG TAB PO ×2 (09:28→21:40)
[2018-03-10] MEDS: GABAPENTIN 300 MG CAP PO ×3 (09:28→21:40)
[2018-03-10] MEDS: rOPINIRole 1MG TAB PO (21:40)
[2018-03-11] MEDS: cloNIDine 0.1 MG TAB PO (06:00)
[2018-03-11] MEDS: GABAPENTIN 300 MG CAP PO (08:45)
[2018-03-11] MEDS: BENZTROPINE 0.5 MG TAB PO (08:45)
[2018-03-11] MEDS: NICOTINE 21MG/24HR 1 EA TRANSDERMAL TD (08:46)
== END 2018-03-11 09:25 | disposition home or self-care (01) | DRG 751 ==
LOC: M PSY 03-06 02:43 → M ED 21:12 → M ED INP 23:37
DX: F33.9 Major depressive disorder, recurrent, unspecified (principal); R45.851 Suicidal ideations; Z59.0 Homelessness; F14.90 Cocaine use, unspecified, uncomplicated; Z79.899 Other long term (current) drug therapy; B18.2 Chronic viral hepatitis C; F41.9 Anxiety disorder, unspecified; M54.5 Low back pain; R91.1 Solitary pulmonary nodule; F17.200 Nicotine dependence, unspecified, uncomplicated

== ENCOUNTER 2018-04-05 11:26 | Emergency (ER) | payer MEDICAID, OTHER | END 2018-04-05 12:53 | disposition home or self-care (01) | LOC: M ED 11:26 | DX: Z76.0 Encounter for issue of repeat prescription (principal); M54.9 Dorsalgia, unspecified; B19.20 Unspecified viral hepatitis C without hepatic coma; F11.20 Opioid dependence, uncomplicated; F17.210 Nicotine dependence, cigarettes, uncomplicated | CPT/HCPCS: 99282 ==

== ENCOUNTER 2018-05-20 07:34 | Emergency (ER) | payer OTHER, MEDICAID ==
[2018-05-20] MEDS: CLINDAMYCIN 900 MG in APPROPRIATE DILUENT 1 EA IV (09:05)
[2018-05-20 10:01] LABS: ANION GAP 9 MEQ/L (8-16); BLOOD UREA NITROGEN 8 MG/DL (7-18); C REACTIVE PROTEIN QUANTITATIV 3.74 MG/DL (0.00-0.30); CALCIUM LEVEL 8.9 MG/DL (8.5-10.1); CARBON DIOXIDE LEVEL 25 MEQ/L (21-32); CHLORIDE LEVEL 105 MEQ/L (98-107); CREATININE FOR GFR 0.89 MG/DL (0.70-1.30); GLOMERULAR FILTRATION RATE > 60.0 (>60); GLUCOSE, FASTING 110 MG/DL (70-100); POTASSIUM SERUM 4.7 MEQ/L (3.5-5.1); SODIUM LEVEL 139 MEQ/L (136-145)
[2018-05-20 10:03] LABS: BASO # 0.1 10^3/uL (0.0-0.2); BASO % 0.8 % (0.0-1.0); EOS # 0.2 10^3/uL (0.0-0.50); EOS % 3.3 % (0.0-3.0); HEMATOCRIT 43.5 % (42.0-52.0); HEMOGLOBIN 14.6 g/dl (13.5-17.5); IMMATURE GRANULOCYTE % 0.3 % (0-3.0); LYMPH # 1.7 10^3/uL (1.5-4.5); LYMPH % 25.6 % (24.0-44.0); MEAN CORPUSCULAR HEMOGLOBIN 30.5 pg (27.0-33.0); MEAN CORPUSCULAR HGB CONC 33.6 g/dl (32.0-36.5); MEAN CORPUSCULAR VOLUME 90.8 fl (80.0-96.0); MONO # 0.6 10^3/uL (0.0-0.8); MONO % 8.7 % (0.0-5.0); NEUTROPHILS # 4.1 10^3/uL (1.8-7.7); NEUTROPHILS % 61.3 % (36.0-66.0); PLATELET COUNT, AUTOMATED 221 10^3/uL (150-450); RED BLOOD COUNT 4.79 10^6/uL (4.30-6.10); RED CELL DISTRIBUTION WIDTH 12.2 % (11.5-14.5); WHITE BLOOD COUNT 6.6 10^3/uL (4.0-10.0)
== END 2018-05-20 10:21 | disposition home or self-care (01) ==
LOC: M ED 07:34
DX: L03.113 Cellulitis of right upper limb (principal); I82.611 Acute embolism and thrombosis of superficial veins of right upper extremity; B19.20 Unspecified viral hepatitis C without hepatic coma; F11.11 Opioid abuse, in remission; Z79.890 Hormone replacement therapy
CPT/HCPCS: 93971

== ENCOUNTER 2019-03-24 06:10 | Emergency (ER) | payer MEDICAID, OTHER ==
[~2019-03-24] VITALS: Ht 177.8 cm; Wt 86.4 kg
[~2019-03-24 06:10] MED LIST changes: +AMIT25TA PO; +BACT800T5 PO; +BENZ0.5T23 PO; +CLEO300C2 PO; +DOXY100C37 PO; -GABA-282 PO; +GABA-843 PO; +GABA600T4 PO; +IBUP-1022 PO; +KETO10TAB PO; +METH1TAB40 PO; +MOTR200T44 PO; +NEUR600T PO; +NICO2GUM52 PO; -NICO2GUM62 PO; +QUET1TAB7 PO; +REQU1TAB16 PO; +SERT-141 PO; -SERT50TA PO; +SUBO8MIS SL; +TIZA1POW XX; +TRAZ1TAB10 PO
[2019-03-24] MEDS ORDERED: CELE20TA PO (06:17)
[2019-03-24] MEDS ORDERED: MUPI2OI TOP (07:06)
[2019-03-24 07:28] VITALS: BP 133/67
== END 2019-03-24 09:14 | disposition home or self-care (01) ==
LOC: M ED 06:10
DX: L01.00 Impetigo, unspecified (principal)

== ENCOUNTER 2020-01-11 12:51 | Inpatient (IN) | payer MEDICAID, OTHER ==
[~2020-01-11 12:51] MED LIST changes: +CELE20TA PO; +CYCL-707 PO; -CYCL10TA PO; +MUPI2OI TOP; +NICO-13 PO; -NICO2GUM52 PO
[2020-01-11] MEDS ORDERED: KETOROLAC 30 MG/ML 1ML VIAL As Ordered ONE (14:41)
[2020-01-11] MEDS ORDERED: CLINDAMYCIN 900 MG/50 ML PREMIX BAG As Ordered ONE (15:08)
[2020-01-11] MEDS ORDERED: ISOVUE-370 76% 100ML VIAL As Ordered ONE (17:47)
[2020-01-12] MEDS ORDERED: VANCOMYCIN 1000MG/20ML VIAL As Ordered ONE ×2 (02:48→09:46)
[2020-01-12] MEDS ORDERED: VANCOMYCIN 1000MG/20ML VIAL ONE ×2 (02:48→09:46)
[2020-01-12] MEDS ORDERED: VANCOMYCIN 500MG/10ML VIAL ONE (04:25)
[2020-01-12] MEDS ORDERED: VANCOMYCIN 500MG/10ML VIAL As Ordered ONE (04:25)
[2020-01-12] MEDS ORDERED: ENOXAPARIN 40MG/0.4ML SYRINGE (J1650 PER 10MG) As Ordered ONE (09:46)
[2020-01-12] MEDS ORDERED: ENOXAPARIN 40MG/0.4ML SYRINGE (J1650 PER 10MG) ONE (09:46)
[2020-03-03 22:03] LABS: ALBUMIN 2.8 GM/DL (3.2-5.2); ALT/SGPT 368 U/L (12-78); BILIRUBIN,DIRECT 0.2 MG/DL (0.0-0.2); BILIRUBIN,TOTAL 0.4 MG/DL (0.2-1.0); BLOOD UREA NITROGEN 14 MG/DL (7-18); C REACTIVE PROTEIN QUANTITATIV 1.03 MG/DL (0.00-0.30); CALCIUM LEVEL 8.3 MG/DL (8.5-10.1); CARBON DIOXIDE LEVEL 28 MEQ/L (21-32); CHLORIDE LEVEL 107 MEQ/L (98-107); CREATININE FOR GFR 0.77 MG/DL (0.70-1.30); GLOMERULAR FILTRATION RATE > 60.0 (>60); GLUCOSE, FASTING 163 MG/DL (70-100); POTASSIUM SERUM 3.7 MEQ/L (3.5-5.1); SODIUM LEVEL 141 MEQ/L (136-145); TOTAL PROTEIN 6.2 GM/DL (6.4-8.2)
[2020-03-04 11:03] LABS: HEMATOCRIT 44.9 % (42.0-52.0); HEMOGLOBIN 14.8 g/dl (13.5-17.5); MEAN CORPUSCULAR HEMOGLOBIN 29.7 pg (27.0-33.0); PLATELET COUNT, AUTOMATED 217 10^3/uL (150-450); RED BLOOD COUNT 4.99 10^6/uL (4.30-6.10); WHITE BLOOD COUNT 8.6 10^3/uL (4.0-10.0)
[2020-04-16 15:14] LABS: ERYTHROCYTE SEDIMENTATION RATE 24 mm/hr (0-15)
== END 2020-01-12 15:56 | disposition left against medical advice (07) | DRG 383 ==
LOC: M ED 12:51 → M MSPAV 17:42 → EEVIPCON 17:42
PROVIDERS: ADMIT Internal Medicine; ATTEND Internal Medicine
DX: L03.114 Cellulitis of left upper limb (principal); B95.61 Methicillin susceptible Staphylococcus aureus infection as the cause of diseases classified elsewhere; F17.200 Nicotine dependence, unspecified, uncomplicated

== ENCOUNTER 2020-04-27 12:06 | Emergency (ER) | payer OTHER ==
[~2020-04-27] VITALS: Ht 175.3 cm; Wt 71.7 kg
[2020-04-27 14:11] LABS: BASO # 0.1 10^3/uL (0.0-0.2); BASO % 0.4 % (0.0-1.0); EOS # 0.1 10^3/uL (0.0-0.5); EOS % 0.9 % (0.0-3.0); HEMATOCRIT 43.4 % (42.0-52.0); HEMOGLOBIN 13.9 g/dl (13.5-17.5); LYMPH # 1.4 10^3/uL (1.5-5.0); LYMPH % 11.4 % (24.0-44.0); MEAN CORPUSCULAR VOLUME 90.4 fl (80.0-96.0); MONO # 0.8 10^3/uL (0.0-0.8); MONO % 6.7 % (0.0-5.0); NEUTROPHILS % 80.2 % (36.0-66.0); PLATELET COUNT, AUTOMATED 274 10^3/uL (150-450); WHITE BLOOD COUNT 12.5 10^3/uL (4.0-10.0)
[2020-04-27 14:50] LABS: ALT/SGPT 20 U/L (12-78); BILIRUBIN,DIRECT < 0.1 MG/DL (0.0-0.2); BILIRUBIN,TOTAL 0.3 MG/DL (0.2-1.0); BLOOD UREA NITROGEN 11 MG/DL (7-18); CALCIUM LEVEL 9.6 MG/DL (8.5-10.1); CARBON DIOXIDE LEVEL 27 MEQ/L (21-32); CHLORIDE LEVEL 105 MEQ/L (98-107); CREATININE FOR GFR 0.77 MG/DL (0.70-1.30); GLOMERULAR FILTRATION RATE > 60.0 (>60); GLUCOSE, FASTING 111 MG/DL (70-100); POTASSIUM SERUM 4.5 MEQ/L (3.5-5.1); SODIUM LEVEL 138 MEQ/L (136-145); TOTAL PROTEIN 8.2 GM/DL (6.4-8.2)
[2020-04-27] MEDS ORDERED: BACT800T5 PO (16:12)
[2020-04-27] MEDS ORDERED: cefTRIAXone SOD 1GM VIAL (J0696 PER 250MG) IM ONE (16:15)
[2020-04-27] MEDS ORDERED: LIDOCAINE 1% SDV 5ML VIAL DILUENT ONE (16:15)
[2020-04-27 16:40] VITALS: BP 130/83
== END 2020-04-27 16:44 | disposition home or self-care (01) ==
LOC: M ED 12:06
DX: L03.116 Cellulitis of left lower limb (principal); B18.2 Chronic viral hepatitis C; F16.10 Hallucinogen abuse, uncomplicated
CPT/HCPCS: 36415; 80048; 80076; 85025; 87040; 96372; 99283; J0696

== ENCOUNTER 2020-04-29 15:53 | Inpatient (IN) | payer OTHER ==
[~2020-04-29] VITALS: Ht 175.3 cm; Wt 68.2 kg
[2020-04-29] MEDS ORDERED: ACET-683 PO (16:02)
[2020-04-29] MEDS ORDERED: NS 1,000 ML IV ONE ×2 (18:00→23:00)
--- NOTE | 2020-04-29 18:34 | REP ---
INDICATION: tenderness. swelling. COMPARISON: Ankle 09/04/2016 TECHNIQUE: Four views FINDINGS: The shafts of the tibia and fibula are intact without fracture or focal lesion. Visualized distal tibia and fibula with ankle articulation grossly unremarkable. Proximal tibia and fibula show minimal spurring of the medial tibial spine but no fracture, focal lesion or definite suprapatellar joint effusion. There is some minor soft tissue swelling the distal pretibial region on the lateral view. IMPRESSION: 1. Minor pretibial swelling of the soft tissues anterior to the distal tibia. There is no visible fracture, avulsion, radiopaque foreign body, abnormal soft tissue calcification or other acute finding. <Electronically signed by Taran Aguillon > 04/29/20 [id number]
[2020-04-29] MEDS ORDERED: cefTRIAXone SOD 1GM VIAL (J0696 PER 250MG) IM ONE (21:00)
[2020-04-29] MEDS ORDERED: LIDOCAINE 1% SDV 5ML VIAL DILUENT ONE (21:00)
[2020-04-29] MEDS ORDERED: ACETAMINOPHEN 500 MG TAB PO ONE (21:00)
--- NOTE | 2020-04-29 21:29 | REPVR ---
PROCEDURE INFORMATION: Exam: US Duplex Left Lower Extremity Veins, Limited Exam date and time: 04/29/2020 9:13 PM Age: 39 years old Clinical indication: Edema, localized; Lower extremity, left; Additional info: Lower leg swelling RO clot TECHNIQUE: Imaging protocol: Real-time Duplex ultrasound of the Left Lower Extremity with 2-D bedoya scale, color Doppler flow and spectral waveform analysis with image documentation. Limited exam focused on the left lower extremity veins. COMPARISON: US Duplex, Ext,LOWER veins,unilat 09/04/2016 4:34 PM FINDINGS: Left deep veins: Unremarkable. The common femoral, femoral and popliteal veins are patent without thrombus. Normal compressibility, augmentation response and Doppler waveforms. Left superficial veins: Unremarkable. Saphenofemoral junction is patent without thrombus. Soft tissues: Unremarkable. Lymph nodes: Multiple mildly prominent left inguinal lymph nodes, measuring up to 3.9 x 0.8 x 2 cm, likely reactive. IMPRESSION: 1. No sonographic evidence of deep venous thrombosis. 2. Additional findings, as above. Electronically signed by: Santos Richmond On 04/29/2020 21:29:32 PM
[2020-04-29 21:32] LABS: BASO # 0.1 10^3/uL (0.0-0.2); BASO % 0.4 % (0.0-1.0); EOS # 0.1 10^3/uL (0.0-0.5); EOS % 0.9 % (0.0-3.0); HEMATOCRIT 36.7 % (42.0-52.0); HEMOGLOBIN 11.9 g/dl (13.5-17.5); LYMPH # 1.8 10^3/uL (1.5-5.0); LYMPH % 13.1 % (24.0-44.0); MEAN CORPUSCULAR HGB CONC 32.4 g/dl (32.0-36.5); MEAN CORPUSCULAR VOLUME 89.3 fl (80.0-96.0); MONO % 7.4 % (0.0-5.0); NEUTROPHILS # 10.5 10^3/uL (1.5-8.5); NEUTROPHILS % 77.8 % (36.0-66.0); PLATELET COUNT, AUTOMATED 202 10^3/uL (150-450); RED BLOOD COUNT 4.11 10^6/uL (4.30-6.10); WHITE BLOOD COUNT 13.6 10^3/uL (4.0-10.0)
[2020-04-29 21:50] LABS: ERYTHROCYTE SEDIMENTATION RATE 58 mm/hr (0-15)
[2020-04-29] MEDS ORDERED: BACT800T5 PO (22:23)
[2020-04-29] MEDS ORDERED: ACET-897 PO (22:23)
[2020-04-29 22:27] LABS: ALBUMIN 3.1 GM/DL (3.2-5.2); ALT/SGPT 15 U/L (12-78); BILIRUBIN,DIRECT < 0.1 MG/DL (0.0-0.2); BILIRUBIN,TOTAL 0.6 MG/DL (0.2-1.0); BLOOD UREA NITROGEN 16 MG/DL (7-18); CALCIUM LEVEL 9.1 MG/DL (8.5-10.1); CARBON DIOXIDE LEVEL 25 MEQ/L (21-32); CHLORIDE LEVEL 100 MEQ/L (98-107); CREATININE FOR GFR 0.85 MG/DL (0.70-1.30); GLOMERULAR FILTRATION RATE > 60.0 (>60); GLUCOSE, FASTING 80 MG/DL (70-100); POTASSIUM SERUM 4.9 MEQ/L (3.5-5.1); SODIUM LEVEL 132 MEQ/L (136-145); TOTAL PROTEIN 7.2 GM/DL (6.4-8.2)
[2020-04-29] MEDS ORDERED: traMADol 50 MG TAB PO PRN (23:00)
[2020-04-29] MEDS ORDERED: KETOROLAC 30 MG/ML 1ML VIAL IV ONE (23:00)
[2020-04-29] MEDS ORDERED: KETOROLAC 30 MG/ML 1ML VIAL IV PRN (23:00)
[2020-04-29] MEDS ORDERED: ACETAMINOPHEN TAB 650MG DOSE (2X325MG) PO PRN (23:00)
[2020-04-29] MEDS ORDERED: HYDROMORPHONE HCL 0.5 MG/ 0.5 ML SYRINGE (J1170 PER 1) IV ONE (23:30)
[2020-04-29] MEDS ORDERED: traMADol 50 MG TAB PO ONE (23:30)
--- NOTE | 2020-04-30 | HPEPDOC ---
[facility] Medical History & Physical Date of Admission Apr 29, 2020 Date of Service: Apr 29, 2020 Attending Physician: SHILOH DELGADILLO MD History and Physical CHIEF COMPLAINT: Left leg swelling and redness HISTORY OF PRESENT ILLNESS: Patient is a 39-year-old male who presented to the hospital with a chief complaint of left leg swelling and redness. Patient states that this is been there for the past 5-7 days. Patient did report to the emergency department about 4 days ago and received a dose of IM ceftriaxone and was sent home with Bactrim. Patient says he has been taking the antibiotic twice a day as charted however, his leg swelling and redness is getting worse. Patient says it is quite painful he describes as an 8 out of 10 throbbing pain. Patient says that he uses IV Dolly but does not inject in the foot. Patient usually uses his arms for injection. Patient says he has not felt sick does not have any other complaints. PAST MEDICAL HISTORY: 1. Hepatitis C. PAST SURGICAL HISTORY: Denies any surgical history SOCIAL HISTORY: Patient states that he smokes about a pack a day cigarettes. Patient denies any alcohol use. Patient uses IV Dolly denies any IV opiate use. FAMILY HISTORY: Patient denies any pertinent family history ALLERGIES: Please see below. REVIEW OF SYSTEMS: General: Patient denies fevers HEENT: Patient denies headaches Cardiovascular: Patient denies chest pain Respiratory: Patient denies shortness of breath, cough GI: Patient denies abdominal pain, nausea, vomiting, diarrhea : Patient denies increased frequency or pain with urination Extremities: Patient reports pain in his left lower extremity as above. Neurological: Patient denies numbness or tingling in legs Skin: Patient denies any new rashes or lesions. Hematologic: Patient denies any easy bruising. Lymphatic: Patient denies any lumps lumps or bumps in neck, axilla, or groin HOME MEDICATIONS: Please see below. PHYSICAL EXAMINATION: VITAL SIGNS: See below General: Alert and oriented male patient who is sitting in the chair when I walked in the room. Patient did not appear to be in any acute distress. HEENT: Normocephalic, atraumatic, moist mucous membranes. Neck: No lymphadenopathy or thyromegaly Cardiac: Regular rate and rhythm, no murmurs, normal S1, normal S2 Pulm: Clear to auscultation bilaterally. No wheezes, rhonchi, rales Abd: Nondistended, nontender to palpation, normal bowel sounds Skin: Patient has multiple excoriations throughout his body Ext: Redness and heat around the left ankle and foot. Patient is neurovascularly intact distal to the area of redness. This area is tender to the touch. LABORATORY DATA: See below. IMAGING: An x-ray of the tibia/fibula performed on 04/29/2020 was reported to show minor pretibial swelling of the soft tissues anterior to the distal tibia. There is no visible fracture, avulsion, radiopaque foreign body, abnormal soft tissue calcification, or other acute finding. A venous duplex ultrasound of the left lower extremity performed on 04/27/2020 was reported to show no sonographic evidence of deep venous thrombosis, multiple mildly prominent left inguinal lymph nodes, measuring up to 3.9 x 0.8 x 2 cm, likely reactive. MICROBIOLOGY: Please see below. ASSESSMENT: Patient is a 39-year-old male who presented to the hospital with left lower Schembri that was swollen and forearm secondary to cellulitis that has failed outpatient treatment. PLAN: 1. Left lower extremity cellulitis. Patient was given a dose of IM Rocephin in [facility] emergency department today. I will start the patient on IV vancomycin and a MRSA screen has been ordered. Patient had been on Bactrim for 4 days and he states that he has been taking the medication as prescribed although the cellulitis has been getting worse. Patient was febrile in the emergency department which was treated with Tylenol. Patient's leg has been marked. 2. IV drug use, Dolly. We will watch for withdrawal symptoms. At this time, the patient is calm and cooperative. 3. DVT prophylaxis: Lovenox. 4. CODE STATUS: Full codecode Vital Signs Vital Signs Date Time Temp Pulse Resp B/P (MAP) Pulse Ox O2 Delivery O2 Flow Rate FiO2 04/29/20 23:02 99.7 89 18 122/68 (86) 97 Room Air Laboratory Data Labs 24H Laboratory Tests 2 04/29/20 21:07: Coronavirus (COVID-19)(PCR) NEGATIVE 04/29/20 21:26: Immature Granulocyte % (Auto) 0.4, Neutrophils (%) (Auto) 77.8H, Lymphocytes (%) (Auto) 13.1L, Monocytes (%) (Auto) 7.4H, Eosinophils (%) (Auto) 0.9, Basophils (%) (Auto) 0.4, Neutrophils # (Auto) 10.5H, Lymphocytes # (Auto) 1.8, Monocytes # (Auto) 1.0H, Eosinophils # (Auto) 0.1, Basophils # (Auto) 0.1, Nucleated Red Blood Cells % (auto) 0.0, Erythrocyte Sedimentation Rate 58H, Anion Gap 7L, Glomerular Filtration Rate > 60.0, Lactic Acid Level 0.9, Calcium Level 9.1, Total Bilirubin 0.6#, Direct Bilirubin < 0.1, Aspartate Amino Transf (AST/SGOT) 33, Alanine Aminotransferase (ALT/SGPT) 15, Alkaline Phosphatase 86, C-Reactive Protein, Quantitative 14.00H, Total Protein 7.2, Albumin 3.1#L, Albumin/Globulin Ratio 0.8 CBC/BMP Laboratory Tests 04/29/20 21:26 Microbiology Microbiology 04/29/20 Blood Culture, Received Pending 04/29/20 Blood Culture, Received Pending Home Medications Scheduled Sulfamethoxazole/Trimethoprim (Bactrim Ds Tablet) 1 Each Tablet, 1 TAB PO BID Scheduled PRN Acetaminophen (Tylenol Extra Strength) 500 Mg Tablet, 1,000 MG PO Q6H PRN for PAIN Allergies Coded Allergies: No Known Allergies (Unverified , 03/24/19) A-FIB/CHADSVASC A-FIB History Current/History of A-Fib/PAF?: No GME ATTESTATION GME ATTESTATION My faculty preceptor for this patient encounter was physically present during the encounter and was fully available. All aspects of the patient interview, examination, medical decision making process, and medical care plan development were reviewed and approved by the faculty preceptor. The faculty preceptor is aware and concurs with the plan as stated in the body of this note and will attest to such by his/her cosignature. ATTENDING NOTE I have independently interviewed and examined the patient at the bedside, and agree with the physical findings, assessment, and management plan as documented by my Resident Physician. The patient's questions have been answered. The patient has been encouraged to contact our office for any new concerns or questions. JACEK JOHNSON DO Apr 30, 2020 00:00 SHILOH DELGADILLO MD May 01, 2020 00:14
[2020-04-30] MEDS ORDERED: VANCOMYCIN HCL 750 MG, VIAL MATE ADAPTER 1 EACH in D5W 250 ML IV ONE ×4 (01:00)
[2020-04-30 02:29] VITALS: BP 114/68
[2020-04-30] MEDS ORDERED: AMPICILLIN SOD/SULBACTAM SOD 3 GM in D5W MINI-BAG PLUS 100 ML IV SCH (03:00)
[2020-04-30 06:05] VITALS: BP 106/63
[2020-04-30] MEDS: traMADol 50 MG TAB PO PRN ×3 (09:03→22:28)
[2020-04-30] MEDS: ENOXAPARIN 40MG/0.4ML SYRINGE (J1650 PER 10MG) SC SCH (09:04)
--- NOTE | 2020-04-30 11:26 | IPNPDOC ---
Text Note Date of Service The patient was seen on 04/30/20. NOTE CC: Left leg swelling and redness Subjective: Darryl Burns is a 39 yr old male w/ PMHx of hepatitis C presented to the ED w/ left leg swelling and redness. Today, patient complains of pain along with continual left leg swelling and redness. The pain is located in his left leg down to his left foot. He describes the pain as a throbbing pain and rates it an 8-9/10, and nothing makes it better or worse. States that his left leg feels warm. Denies any fever and any numbness and tingling last night. Patient's labs came back showing MRSA positive and was started on vancomycin overnight. Objective: Vitals: See below General: Patient in no acute distress, alert and oriented x3 Cardiovascular: RRR, no murmurs or gallops, normal S1 and S2 Respiratory: Lungs clear to auscultation bilaterally, no wheezing or crackles GI: Abdomen soft, nontender, nondistended, normal bowel sounds x4, no hepatomegaly. Extremities: Left leg erythematous, warm, tender to light touch, poorly de marcated borders extending from the plantar surface of the left foot up to the tibial area of the left leg, unable to appreciate pedal pulses in left foot, +2/4 pedal pulses in right foot, +2/4 popliteal pulse bilaterally Labs: See below Imaging: No new imaging to report Assessment: Darryl Burns is a 39 yr old male w/ PMHx of hepatitis C presented to the ED w/ left leg swelling and redness. Patient's physical exam on the left lower leg consistent w/ cellulitis, labs came back showing MRSA positive cellulitis. Patient did not exhibit any withdrawal signs from recent IV Dolly use. Plan: 1. Left Leg Cellulitis 2/2 MRSA infection -Patient's physical presentation of left leg consistent w/ cellulitis, possibly due to frequent IV drug use -Patient has positive cultures for MRSA -Patient has elevated leukocytosis, ESR, and CRP -Will continue vancomycin until 48 hr cultures come back, currently on Day 1 of 10 2. Normocytic Anemia -Patient's hemoglobin is trending down from 13.9 to 11.9 -Will continue to monitor 3. IV Drug Use -Patient states that he injects IV Dolly in either of his arms -Currently does not show any withdrawal symptoms -Patient states that he has been to rehab before for IV drug use 4. Hepatitis C -Patient has a history of hepatitis C, states that he has been treated 5. DVT Prophylaxis -Currently on Lovenox 40 mg SC 6. Code Status = Full code Disposition: Patient currently has blood cultures pending to determine whether to keep on vancomycin or switch to other antibiotics VS,Fishbone, I+O VS, Fishbone, I+O Laboratory Tests 04/29/20 21:26 Vital Signs Date Time Temp Pulse Resp B/P (MAP) Pulse Ox O2 Delivery O2 Flow Rate FiO2 04/30/20 09:33 18 Room Air 04/30/20 06:05 98.6 77 106/63 (77) 97 I&O- Last 24 Hours up to 6 AM 04/30/20 05:59 Intake Total 1500 ml Output Total 0 ml Balance 1500 ml GME ATTESTATION GME ATTESTATION My faculty preceptor for this patient encounter was physically present during the encounter and was fully available. All aspects of the patient interview, examination, medical decision making process, and medical care plan development were reviewed and approved by the faculty preceptor. The faculty preceptor is aware and concurs with the plan as stated in the body of this note and will attest to such by his/her cosignature. GME ATTESTATION GME ATTESTATION My faculty preceptor for this patient encounter was physically present during the encounter and was fully available. All aspects of the patient interview, examination, medical decision making process, and medical care plan development were reviewed and approved by the faculty preceptor. The faculty preceptor is aware and concurs with the plan as stated in the body of this note and will attest to such by his/her cosignature. ATTENDING NOTE Attending Note: Patient seen and examined independently. Agree with student's note. REY SANDRA OMS-IV Apr 30, 2020 11:26 SHO BOYD MD May 02, 2020 07:03
[2020-04-30] MEDS: NICOTINE POLACRILEX 2 MG GUM PO PRN ×3 (11:38→18:56)
[2020-04-30 11:56] LABS: HEMATOCRIT 33.1 % (42.0-52.0); HEMOGLOBIN 11.1 g/dl (13.5-17.5); MEAN CORPUSCULAR HEMOGLOBIN 30.3 pg (27.0-33.0); MEAN CORPUSCULAR HGB CONC 33.5 g/dl (32.0-36.5); MEAN CORPUSCULAR VOLUME 90.4 fl (80.0-96.0); PLATELET COUNT, AUTOMATED 279 10^3/uL (150-450); RED BLOOD COUNT 3.66 10^6/uL (4.30-6.10); WHITE BLOOD COUNT 11.4 10^3/uL (4.0-10.0)
[2020-04-30 12:21] LABS: EOSINOPHILS 2 % (0-3); LYMPHOCYTES 18 % (16-44); MONOCYTES 8 % (0-5); NEUTROPHILS 72 % (28-66); PLATELET ESTIMATE NORMAL (NORMAL)
[2020-04-30 12:41] LABS: BLOOD UREA NITROGEN 18 MG/DL (7-18); CALCIUM LEVEL 8.8 MG/DL (8.5-10.1); CARBON DIOXIDE LEVEL 23 MEQ/L (21-32); CHLORIDE LEVEL 107 MEQ/L (98-107); CREATININE FOR GFR 0.79 MG/DL (0.70-1.30); GLOMERULAR FILTRATION RATE > 60.0 (>60); GLUCOSE, FASTING 107 MG/DL (70-100); POTASSIUM SERUM 5.4 MEQ/L (3.5-5.1); SODIUM LEVEL 136 MEQ/L (136-145)
[2020-04-30] MEDS: VANCOMYCIN HCL 1,000 MG, VIAL MATE ADAPTER 1 EACH in D5W 250 ML IV SCH ×2 (12:57→20:27)
[2020-04-30 14:00] VITALS: BP 117/73
[2020-04-30 20:40] VITALS: BP 119/74
[2020-05-01 04:06] LABS: BASO % 0.4 % (0.0-1.0); EOS # 0.1 10^3/uL (0.0-0.5); EOS % 1.5 % (0.0-3.0); HEMATOCRIT 35.2 % (42.0-52.0); HEMOGLOBIN 11.3 g/dl (13.5-17.5); LYMPH # 1.8 10^3/uL (1.5-5.0); MEAN CORPUSCULAR HEMOGLOBIN 28.9 pg (27.0-33.0); MEAN CORPUSCULAR HGB CONC 32.1 g/dl (32.0-36.5); MONO # 0.7 10^3/uL (0.0-0.8); MONO % 7.6 % (0.0-5.0); NEUTROPHILS # 6.7 10^3/uL (1.5-8.5); NEUTROPHILS % 71.1 % (36.0-66.0); PLATELET COUNT, AUTOMATED 262 10^3/uL (150-450); RED BLOOD COUNT 3.91 10^6/uL (4.30-6.10); WHITE BLOOD COUNT 9.5 10^3/uL (4.0-10.0)
[2020-05-01 04:25] LABS: ERYTHROCYTE SEDIMENTATION RATE 63 mm/hr (0-15)
[2020-05-01 04:39] LABS: BLOOD UREA NITROGEN 11 MG/DL (7-18); C REACTIVE PROTEIN QUANTITATIV 9.14 MG/DL (0.00-0.30); CARBON DIOXIDE LEVEL 27 MEQ/L (21-32); CHLORIDE LEVEL 105 MEQ/L (98-107); CREATININE FOR GFR 0.59 MG/DL (0.70-1.30); GLOMERULAR FILTRATION RATE > 60.0 (>60); GLUCOSE, FASTING 102 MG/DL (70-100); POTASSIUM SERUM 4.2 MEQ/L (3.5-5.1); SODIUM LEVEL 137 MEQ/L (136-145); VANCOMYCIN LEVEL TROUGH 9.6 UG/ML (10.0-20.0)
[2020-05-01] MEDS: VANCOMYCIN HCL 1,000 MG, VIAL MATE ADAPTER 1 EACH in D5W 250 ML IV SCH ×2 (05:35→11:00)
[2020-05-01] MEDS: traMADol 50 MG TAB PO PRN ×2 (05:37→12:26)
[2020-05-01] MEDS: NICOTINE POLACRILEX 2 MG GUM PO PRN (05:37)
[2020-05-01 06:22] VITALS: BP 121/75
[2020-05-01] MEDS: ENOXAPARIN 40MG/0.4ML SYRINGE (J1650 PER 10MG) SC SCH (08:04)
--- NOTE | 2020-05-01 11:34 | REP ---
INDICATION: eval osteo. COMPARISON: None TECHNIQUE: Sagittal T2 fat suppressed and proton density. Coronal proton density, STIR and fat suppressed proton density. Axial fat suppressed proton density and T1. FINDINGS: There is detail limiting motion artifact throughout the exam. Limited evaluation of wall imaged flexor and extensor tendons are intact and of normal appearing low signal throughout. All stabilizing ligaments appear to be intact. The cortical and marrow signal seen throughout the foot and imaged portion of the ankle are within normal limits. There is evidence of diffuse subcutaneous T2 hyper signal and swelling. There is no evidence of a fracture or destructive osseous lesion. There is no joint effusion. The chondral surfaces appear smooth. IMPRESSION: Diffuse soft tissue swelling. There is no other significant abnormality. <Electronically signed by Roland Gan > 05/01/20 [id number]
--- NOTE | 2020-05-01 11:52 | DS.PDOC ---
Discharge Summary General Date of Admission Apr 29, 2020 at 22:49 Date of Discharge 05/01/20 Discharge Summary PROCEDURES PERFORMED DURING STAY: [None]. DISCHARGE DIAGNOSES: #Cellulitis #IV drug abuse COMPLICATIONS/CHIEF COMPLAINT: Cellulitis Of The Left Lower Leg. HISTORY OF PRESENT ILLNESS: 39M who presented to the hospital with a chief complaint of left leg swelling and redness. Patient stated that this is been there for the past 5-7 days. Patient did report to the emergency department 2 days prior, and received IM ceftriaxone and was sent home with Bactrim. Patient states it is quite painful, and described as an 8 out of 10 throbbing pain. Patient stated that he uses IV Dolly but does not inject in the foot. Patient usually uses his arms for injection. Patient stated he has not felt sick does not have any other complaints. HOSPITAL COURSE: Patient admitted for further evaluation and treatment. Stated he does not inject in his leg. Also stated he had not been taking his medications at home. Imaging including MRI to evaluate for osteo were unrevealing. Patient discharged with outpatient follow up. DISCHARGE MEDICATIONS: Please see below. ALLERGIES: Please see below. PHYSICAL EXAMINATION ON DISCHARGE: VITAL SIGNS: Please see below. General: NAD, lying comfortably in bed HEENT: Normocephalic, atraumatic, moist mucous membranes. Neck: No lymphadenopathy or thyromegaly Cardiac: Regular rate and rhythm, no murmurs, normal S1, normal S2 Pulm: Clear to auscultation bilaterally. No wheezes, rhonchi, rales Abd: Nondistended, nontender to palpation, normal bowel sounds Ext: Redness and heat around the left ankle and foot. Much improved from previously demarcated area on admission. Patient is neurovascularly intact distal to the area of redness. This area is tender to the touch. LABORATORY DATA: Please see below. ACTIVITY: [As tolerated]. DISPOSITION: Discharge home DISCHARGE INSTRUCTIONS: 1. Follow up PCP in 3-5 days. 2. Stop IV drug abuse, and all substance abuse. DISCHARGE CONDITION: [Stable]. TIME SPENT ON DISCHARGE: 35 minutes. Vital Signs/I&Os Vital Signs Date Time Temp Pulse Resp B/P (MAP) Pulse Ox O2 Delivery O2 Flow Rate FiO2 05/01/20 06:22 98.6 77 20 121/75 (90) 96 Room Air I&O- Last 24 Hours up to 6 AM 05/01/20 06:00 Intake Total 1620 ml Output Total 2300 ml Balance -680 ml Laboratory Data Labs 24H Laboratory Tests 2 05/01/20 04:01: Immature Granulocyte % (Auto) 0.4, Neutrophils (%) (Auto) 71.1H, Lymphocytes (%) (Auto) 19.0L, Monocytes (%) (Auto) 7.6H, Eosinophils (%) (Auto) 1.5, Basophils (%) (Auto) 0.4, Neutrophils # (Auto) 6.7, Lymphocytes # (Auto) 1.8, Monocytes # (Auto) 0.7, Eosinophils # (Auto) 0.1, Basophils # (Auto) 0.0, Nucleated Red Blood Cells % (auto) 0.0, Erythrocyte Sedimentation Rate 63H, Anion Gap 5L, Glomerular Filtration Rate > 60.0, Calcium Level 8.0L, C-Reactive Protein, Quantitative 9.14H, Vancomycin Level Trough 9.6L CBC/BMP Laboratory Tests 05/01/20 04:01 Microbiology Microbiology 04/29/20 Blood Culture - Preliminary, Resulted No growth after 24 hours . All specim... 04/29/20 Blood Culture - Preliminary, Resulted No growth after 24 hours . All specim... Discharge Medications Scheduled Sulfamethoxazole/Trimethoprim (Bactrim Ds Tablet) 1 Each Tablet, 1 TAB PO BID, (Reported) Scheduled PRN Acetaminophen (Tylenol Extra Strength) 500 Mg Tablet, 1,000 MG PO Q6H PRN for PAIN, (Reported) Allergies Coded Allergies: No Known Allergies (Unverified , 03/24/19) SHO BOYD MD May 01, 2020 11:52
== END 2020-05-01 13:15 | disposition home or self-care (01) | DRG 383 ==
LOC: M ED 15:53 → M ED INP 22:49 → ENRESERV 04-30 00:18 → M MS5PR 04-30 01:25
PROVIDERS: ADMIT General Practice; ATTEND Internal Medicine
DX: L03.116 Cellulitis of left lower limb (principal); F16.10 Hallucinogen abuse, uncomplicated; D64.9 Anemia, unspecified; B18.2 Chronic viral hepatitis C; B95.62 Methicillin resistant Staphylococcus aureus infection as the cause of diseases classified elsewhere

== ENCOUNTER 2021-07-10 17:49 | Emergency (ER) | payer OTHER ==
[~2021-07-10] VITALS: Ht 175.3 cm; Wt 81.8 kg
[~2021-07-10 17:49] MED LIST changes: +ACET-683 PO; +ACET-897 PO; -AMIT25TA PO; +AMIT25TA17 PO; +DOXY-443 PO; -DOXY100C37 PO; +GABA-282 PO; -GABA-843 PO; +METH-1164 PO; -METH1TAB40 PO; +QUET1TAB17 PO; -QUET1TAB7 PO
[2021-07-10 17:56] VITALS: BP 113/72
== END 2021-07-10 23:58 | disposition left against medical advice (07) ==
LOC: M ED 17:49
DX: Z53.21 Procedure and treatment not carried out due to patient leaving prior to being seen by health care provider (principal)

== ENCOUNTER 2021-07-17 10:08 | Inpatient (IN) | payer MEDICAID, OTHER ==
[~2021-07-17] VITALS: Ht 175.3 cm; Wt 76.5 kg
[2021-07-17 13:26] LABS: BASO % 0.4 % (0.0-1.0); EOS # 0.2 10^3/uL (0.0-0.5); EOS % 3.1 % (0.0-3.0); HEMATOCRIT 35.9 % (42.0-52.0); HEMOGLOBIN 12.1 g/dl (13.5-17.5); LYMPH # 1.5 10^3/uL (1.5-5.0); LYMPH % 20.8 % (24.0-44.0); MEAN CORPUSCULAR HEMOGLOBIN 29.6 pg (27.0-33.0); MEAN CORPUSCULAR HGB CONC 33.7 g/dl (32.0-36.5); MEAN CORPUSCULAR VOLUME 87.8 fl (80.0-96.0); MONO # 0.6 10^3/uL (0.0-0.8); MONO % 8.7 % (2.0-8.0); NEUTROPHILS # 4.7 10^3/uL (1.5-8.5); NEUTROPHILS % 66.2 % (36.0-66.0); PLATELET COUNT, AUTOMATED 412 10^3/uL (150-450); RED BLOOD COUNT 4.09 10^6/uL (4.30-6.10); WHITE BLOOD COUNT 7.2 10^3/uL (4.0-10.0)
[2021-07-17 13:50] LABS: ALBUMIN 2.8 GM/DL (3.2-5.2); ALT/SGPT 24 U/L (12-78); BILIRUBIN,DIRECT 0.2 MG/DL (0.0-0.2); BILIRUBIN,TOTAL 0.4 MG/DL (0.2-1.0); BLOOD UREA NITROGEN 12 MG/DL (7-18); C REACTIVE PROTEIN QUANTITATIV 2.73 MG/DL (0.00-0.30); CALCIUM LEVEL 8.9 MG/DL (8.5-10.1); CARBON DIOXIDE LEVEL 28 MEQ/L (21-32); CHLORIDE LEVEL 102 MEQ/L (98-107); CREATININE FOR GFR 0.86 MG/DL (0.70-1.30); GLOMERULAR FILTRATION RATE > 60.0 (>60); GLUCOSE, FASTING 91 MG/DL (70-100); POTASSIUM SERUM 3.7 MEQ/L (3.5-5.1); SODIUM LEVEL 136 MEQ/L (136-145); TOTAL PROTEIN 7.6 GM/DL (6.4-8.2)
[2021-07-17 13:52] LABS: ERYTHROCYTE SEDIMENTATION RATE 65 mm/hr (0-15)
[2021-07-17 14:16] LABS: FERRITIN 258 NG/ML (26-388); LDH LACTATE DEHYDROGENASE 151 U/L (87-241); MAGNESIUM LEVEL 2.2 MG/DL (1.8-2.4)
[2021-07-17] MEDS ORDERED: ACETAMINOPHEN TAB 650MG DOSE (2X325MG) PO PRN (14:35)
[2021-07-17] MEDS ORDERED: HOME MED LIST COMPLETE! XX SCH (14:35)
[2021-07-17 14:42] LABS: INR 1.06; PROTHROMBIN TIME 14.2 SECONDS (12.7-14.5)
[2021-07-17 14:56] LABS: D-DIMER QUANT 3296.67 ng/ml (<500)
[2021-07-17] MEDS ORDERED: NICOTINE 14 MG/24 HR TRANSDERMAL TD ONE (15:25)
[2021-07-17 15:40] LABS: CK-MB VALUE MASS < 1.0 NG/ML (<3.6); CPK CREATINE PHOSPHOKINASE 60 U/L (39-308); MB/CK RELATIVE INDEX 1.67 (< OR =4)
[2021-07-17] MEDS: PIPERACILLIN/TAZOBACTAM SOD 3.375 GM in D5W MINI-BAG PLUS 50 ML IV SCH ×3 (15:42→19:53)
[2021-07-17] MEDS ORDERED: VANCOMYCIN HCL 750 MG, VIAL MATE ADAPTER 1 EACH in NS 250 ML IV ONE ×2 (16:00→17:00)
[2021-07-17] MEDS: traMADol 50 MG TAB PO PRN ×2 (16:07→23:22)
[2021-07-17] MEDS ORDERED: REMDESIVIR 200 MG in NS 250 ML IV ONE (18:00)
[2021-07-17 18:30] VITALS: BP 125/76
[2021-07-17] MEDS: VANCOMYCIN HCL 1,000 MG, VIAL MATE ADAPTER 1 EACH in NS 250 ML IV SCH (19:52)
[2021-07-17] MEDS ORDERED: SODIUM CHLORIDE 0.9% INJ 10 ML SYR IV ONE (20:00)
[2021-07-17 20:39] VITALS: BP 120/72
[2021-07-17] MEDS: LORazepam 2 MG TAB PO PRN (20:54)
[2021-07-18] VITALS (8 sets, daily range): BP systolic 101–121; BP diastolic 57–80
[2021-07-18] MEDS: LORazepam 2 MG TAB PO PRN ×3 (01:35→23:56)
[2021-07-18] MEDS: VANCOMYCIN HCL 1,000 MG, VIAL MATE ADAPTER 1 EACH in NS 250 ML IV SCH ×2 (04:35→19:03)
[2021-07-18] MEDS: traMADol 50 MG TAB PO PRN (05:48)
[2021-07-18] MEDS ORDERED: NALOXONE INJ 0.4MG/1ML VIAL (J2310 PER 1MG) IV PRN (08:10)
[2021-07-18] MEDS ORDERED: REMDESIVIR 200 MG in NS 250 ML IV ONE ×2 (09:00→20:00)
[2021-07-18] MEDS: METHADONE 5 MG TAB (S0109) PO SCH ×3 (10:46→22:01)
[2021-07-18] MEDS: ENOXAPARIN 40MG/0.4ML SYRINGE (J1650 PER 10MG) SC SCH (10:46)
[2021-07-18] MEDS ORDERED: SODIUM CHLORIDE 0.9% INJ 10 ML SYR IV ONE ×2 (11:00→22:00)
[2021-07-18 13:09] LABS: HEPATITIS B CORE ANTIBODY IGM NEGATIVE (NEGATIVE); HEPATITIS B SURFACE ANTIGEN NEGATIVE (NEGATIVE); HIV 1&2 SCREEN CENTAUR NEGATIVE (NEGATIVE)
[2021-07-18 13:10] LABS: HEPATITIS C VIRUS ABY INDEX > 11.0 INDEX (<0.8)
[2021-07-18] MEDS ORDERED: LIDOCAINE 1% MDV 20ML VIAL As Ordered ONE (15:00)
[2021-07-18] MEDS ORDERED: ONDANSETRON 4 MG ORAL DISINTEGRATING TAB SL PRN (15:30)
[2021-07-18] MEDS: PIPERACILLIN/TAZOBACTAM SOD 3.375 GM in D5W MINI-BAG PLUS 50 ML IV SCH (17:25)
[2021-07-18] MEDS ORDERED: REMDESIVIR 100 MG in NS 250 ML IV SCH (18:00)
[2021-07-18 18:02] LABS: HEMATOCRIT 36.1 % (42.0-52.0); HEMOGLOBIN 11.9 g/dl (13.5-17.5); MEAN CORPUSCULAR HEMOGLOBIN 29.6 pg (27.0-33.0); MEAN CORPUSCULAR VOLUME 89.8 fl (80.0-96.0); PLATELET COUNT, AUTOMATED 435 10^3/uL (150-450); RED BLOOD COUNT 4.02 10^6/uL (4.30-6.10); WHITE BLOOD COUNT 6.7 10^3/uL (4.0-10.0)
[2021-07-18] MEDS ORDERED: SODIUM CHLORIDE 0.9% INJ 10 ML SYR IV PRN (18:15)
[2021-07-18 18:40] LABS: ALBUMIN 2.8 GM/DL (3.2-5.2); ALT/SGPT 23 U/L (12-78); BILIRUBIN,TOTAL 0.2 MG/DL (0.2-1.0); BLOOD UREA NITROGEN 13 MG/DL (7-18); CALCIUM LEVEL 8.8 MG/DL (8.5-10.1); CARBON DIOXIDE LEVEL 29 MEQ/L (21-32); CHLORIDE LEVEL 104 MEQ/L (98-107); CREATININE FOR GFR 0.87 MG/DL (0.70-1.30); GLOMERULAR FILTRATION RATE > 60.0 (>60); GLUCOSE, FASTING 90 MG/DL (70-100); POTASSIUM SERUM 3.9 MEQ/L (3.5-5.1); SODIUM LEVEL 136 MEQ/L (136-145); TOTAL PROTEIN 7.7 GM/DL (6.4-8.2)
[2021-07-18] MEDS ORDERED: SODIUM CHLORIDE 0.9% INJ 10 ML SYR IV SCH (19:00)
[2021-07-18] MEDS: NICOTINE POLACRILEX 2 MG GUM PO PRN (21:47)
[2021-07-19] VITALS (10 sets, daily range): BP systolic 88–123; BP diastolic 54–73
[2021-07-19] MEDS: PIPERACILLIN/TAZOBACTAM SOD 3.375 GM in D5W MINI-BAG PLUS 50 ML IV SCH ×5 (01:00→22:28)
[2021-07-19] MEDS: VANCOMYCIN HCL 1,000 MG, VIAL MATE ADAPTER 1 EACH in NS 250 ML IV SCH ×3 (02:12→18:43)
[2021-07-19] MEDS: SODIUM CHLORIDE 0.9% INJ 10 ML SYR IV SCH ×3 (06:16→20:09)
[2021-07-19 06:25] LABS: HEMATOCRIT 33.7 % (42.0-52.0); HEMOGLOBIN 11.2 g/dl (13.5-17.5); MEAN CORPUSCULAR HEMOGLOBIN 29.8 pg (27.0-33.0); MEAN CORPUSCULAR HGB CONC 33.2 g/dl (32.0-36.5); MEAN CORPUSCULAR VOLUME 89.6 fl (80.0-96.0); PLATELET COUNT, AUTOMATED 354 10^3/uL (150-450); RED BLOOD COUNT 3.76 10^6/uL (4.30-6.10)
[2021-07-19 07:00] LABS: ALBUMIN 2.3 GM/DL (3.2-5.2); ALT/SGPT 18 U/L (12-78); BILIRUBIN,TOTAL 0.2 MG/DL (0.2-1.0); BLOOD UREA NITROGEN 9 MG/DL (7-18); CALCIUM LEVEL 8.1 MG/DL (8.5-10.1); CARBON DIOXIDE LEVEL 28 MEQ/L (21-32); CHLORIDE LEVEL 108 MEQ/L (98-107); CREATININE FOR GFR 0.85 MG/DL (0.70-1.30); GLOMERULAR FILTRATION RATE > 60.0 (>60); GLUCOSE, FASTING 92 MG/DL (70-100); POTASSIUM SERUM 3.7 MEQ/L (3.5-5.1); SODIUM LEVEL 141 MEQ/L (136-145); TOTAL PROTEIN 6.4 GM/DL (6.4-8.2)
[2021-07-19] MEDS ORDERED: REMDESIVIR 100 MG in NS 250 ML IV SCH (09:00)
[2021-07-19] MEDS: ENOXAPARIN 40MG/0.4ML SYRINGE (J1650 PER 10MG) SC SCH (09:50)
[2021-07-19] MEDS: METHADONE 5 MG TAB (S0109) PO SCH ×3 (09:50→19:42)
[2021-07-19] MEDS ORDERED: SODIUM CHLORIDE 0.9% INJ 10 ML SYR IV SCH (10:00)
[2021-07-19] MEDS: REMDESIVIR 100 MG in NS 250 ML IV SCH (20:09)
[2021-07-20] MEDS: VANCOMYCIN HCL 1,000 MG, VIAL MATE ADAPTER 1 EACH in NS 250 ML IV SCH ×2 (01:54→13:18)
[2021-07-20] MEDS: PIPERACILLIN/TAZOBACTAM SOD 3.375 GM in D5W MINI-BAG PLUS 50 ML IV SCH ×4 (04:54→22:11)
[2021-07-20 06:00] VITALS: BP 103/63
[2021-07-20] MEDS: SODIUM CHLORIDE 0.9% INJ 10 ML SYR IV SCH ×3 (06:28→20:08)
[2021-07-20 06:48] LABS: HEMATOCRIT 34.1 % (42.0-52.0); HEMOGLOBIN 11.2 g/dl (13.5-17.5); MEAN CORPUSCULAR HEMOGLOBIN 30.2 pg (27.0-33.0); MEAN CORPUSCULAR HGB CONC 32.8 g/dl (32.0-36.5); MEAN CORPUSCULAR VOLUME 91.9 fl (80.0-96.0); PLATELET COUNT, AUTOMATED 325 10^3/uL (150-450); RED BLOOD COUNT 3.71 10^6/uL (4.30-6.10); WHITE BLOOD COUNT 5.2 10^3/uL (4.0-10.0)
[2021-07-20 07:20] LABS: ALBUMIN 2.3 GM/DL (3.2-5.2); ALT/SGPT 18 U/L (12-78); BILIRUBIN,TOTAL 0.2 MG/DL (0.2-1.0); BLOOD UREA NITROGEN 10 MG/DL (7-18); CALCIUM LEVEL 8.3 MG/DL (8.5-10.1); CARBON DIOXIDE LEVEL 28 MEQ/L (21-32); CHLORIDE LEVEL 111 MEQ/L (98-107); CREATININE FOR GFR 1.08 MG/DL (0.70-1.30); GLOMERULAR FILTRATION RATE > 60.0 (>60); GLUCOSE, FASTING 101 MG/DL (70-100); POTASSIUM SERUM 4.2 MEQ/L (3.5-5.1); SODIUM LEVEL 142 MEQ/L (136-145); TOTAL PROTEIN 6.2 GM/DL (6.4-8.2)
[2021-07-20] MEDS: ENOXAPARIN 40MG/0.4ML SYRINGE (J1650 PER 10MG) SC SCH (09:50)
[2021-07-20] MEDS: METHADONE 5 MG TAB (S0109) PO SCH ×3 (09:50→20:08)
[2021-07-20 13:24] VITALS: BP 104/66
[2021-07-20] MEDS: NICOTINE POLACRILEX 2 MG GUM PO PRN (17:52)
[2021-07-20] MEDS ORDERED: hydrOXYzine 50 MG TAB PO PRN (19:45)
[2021-07-20 20:00] VITALS: BP 108/61
[2021-07-20] MEDS: REMDESIVIR 100 MG in NS 250 ML IV SCH (20:08)
[2021-07-21] MEDS: VANCOMYCIN HCL 1,000 MG, VIAL MATE ADAPTER 1 EACH in NS 250 ML IV SCH ×2 (00:09→10:59)
[2021-07-21 04:00] VITALS: BP 107/64
[2021-07-21] MEDS: PIPERACILLIN/TAZOBACTAM SOD 3.375 GM in D5W MINI-BAG PLUS 50 ML IV SCH ×2 (04:51→09:55)
[2021-07-21 05:14] LABS: HEMATOCRIT 34.3 % (42.0-52.0); HEMOGLOBIN 10.9 g/dl (13.5-17.5); MEAN CORPUSCULAR HEMOGLOBIN 29.5 pg (27.0-33.0); MEAN CORPUSCULAR HGB CONC 31.8 g/dl (32.0-36.5); PLATELET COUNT, AUTOMATED 312 10^3/uL (150-450); RED BLOOD COUNT 3.69 10^6/uL (4.30-6.10)
[2021-07-21 05:34] LABS: BLOOD UREA NITROGEN 10 MG/DL (7-18); CALCIUM LEVEL 8.5 MG/DL (8.5-10.1); CARBON DIOXIDE LEVEL 28 MEQ/L (21-32); CHLORIDE LEVEL 110 MEQ/L (98-107); CREATININE FOR GFR 1.08 MG/DL (0.70-1.30); GLOMERULAR FILTRATION RATE > 60.0 (>60); GLUCOSE, FASTING 95 MG/DL (70-100); SODIUM LEVEL 142 MEQ/L (136-145)
[2021-07-21 06:00] VITALS: BP 107/64
[2021-07-21] MEDS: SODIUM CHLORIDE 0.9% INJ 10 ML SYR IV SCH (06:21)
[2021-07-21] MEDS ORDERED: BACT800T5 PO (07:43)
[2021-07-21] MEDS ORDERED: BACITAB PO (07:43)
[2021-07-21] MEDS ORDERED: CEPH500C PO (07:43)
[2021-07-21] MEDS ORDERED: SUBO8MIS SL (07:44)
[2021-07-21 08:24] LABS: ERYTHROCYTE SEDIMENTATION RATE 52 mm/hr (0-15)
[2021-07-21] MEDS: METHADONE 5 MG TAB (S0109) PO SCH (09:54)
[2021-07-21] MEDS: ENOXAPARIN 40MG/0.4ML SYRINGE (J1650 PER 10MG) SC SCH (09:55)
== END 2021-07-21 13:05 | disposition home or self-care (01) | DRG 380 ==
LOC: M ED 10:08 → M ED INP 14:32 → ENRESERV 16:23 → M 4MAIN 18:35
PROVIDERS: ADMIT Internal Medicine; ATTEND General Practice
PROC: 02HV33Z Insertion of Infusion Device into Superior Vena Cava, Percutaneous Approach (ICD-10-PCS; principal; 2021-07-18 15:00)
DX: L97.919 Non-pressure chronic ulcer of unspecified part of right lower leg with unspecified severity (principal); U07.1 COVID-19; L03.115 Cellulitis of right lower limb; F11.23 Opioid dependence with withdrawal; F17.210 Nicotine dependence, cigarettes, uncomplicated; F12.90 Cannabis use, unspecified, uncomplicated; F41.9 Anxiety disorder, unspecified; F32.A Depression, unspecified; Z76.5 Malingerer [conscious simulation]; B95.7 Other staphylococcus as the cause of diseases classified elsewhere; B19.20 Unspecified viral hepatitis C without hepatic coma

== ENCOUNTER 2023-11-26 01:23 | Emergency (ER) | payer MEDICAID ==
[~2023-11-26] VITALS: Ht 175.3 cm; Wt 68.2 kg
[~2023-11-26 01:23] MED LIST changes: -AMIT25TA17 PO; +AMIT25TA19 PO; +BACITAB PO; +BENZ0.5T2 PO; -BENZ0.5T23 PO; +CEPH500C PO; +DOXY-323 PO; -DOXY-443 PO
[2023-11-26] MEDS ORDERED: DOXY-323 PO (05:18)
[2023-11-26 05:25] VITALS: BP 128/74; TEMP 98.9; O2SAT 98
[2023-11-26] MEDS: DOXYCYCLINE HYCLATE 100MG TABLET PO ONE (05:38)
== END 2023-11-26 05:51 | disposition home or self-care (01) ==
LOC: M ED 01:23
DX: L03.115 Cellulitis of right lower limb (principal); F17.200 Nicotine dependence, unspecified, uncomplicated; F11.10 Opioid abuse, uncomplicated; Z79.2 Long term (current) use of antibiotics; Z79.899 Other long term (current) drug therapy

== ENCOUNTER 2024-01-04 19:22 | Emergency (ER) | payer MEDICAID, SELFPAY ==
[~2024-01-04] VITALS: Ht 175.3 cm; Wt 61.7 kg
[2024-01-04 20:23] LABS: BASO # 0.1 10^3/uL (0.0-0.2); BASO % 0.6 % (0.0-1.0); EOS # 0.1 10^3/uL (0.0-0.5); EOS % 0.9 % (0.0-3.0); HEMATOCRIT 32.8 % (42.0-52.0); HEMOGLOBIN 10.7 g/dl (13.5-17.5); LYMPH # 1.6 10^3/uL (1.5-5.0); LYMPH % 12.7 % (24.0-44.0); MEAN CORPUSCULAR HGB CONC 32.6 g/dl (32.0-36.5); MEAN CORPUSCULAR VOLUME 88.9 fl (80.0-96.0); MONO # 0.9 10^3/uL (0.0-0.8); MONO % 6.8 % (2.0-8.0); NEUTROPHILS # 9.9 10^3/uL (1.5-8.5); NEUTROPHILS % 78.5 % (36.0-66.0); PLATELET COUNT, AUTOMATED 576 10^3/uL (150-450); RED BLOOD COUNT 3.69 10^6/uL (4.30-6.10); WHITE BLOOD COUNT 12.6 10^3/uL (4.0-10.0)
[2024-01-04 20:46] LABS: LIPASE 21 U/L (12-53)
[2024-01-04 20:48] LABS: ALBUMIN 2.3 G/DL (3.2-5.2); ALKALINE PHOSPHATASE 109 U/L (46-116); ALT/SGPT 19 U/L (7.0-40); AST/SGOT 17 U/L (<34); BILIRUBIN,DIRECT < 0.1 MG/DL (<0.4); BILIRUBIN,TOTAL 0.2 MG/DL (0.3-1.2); BLOOD UREA NITROGEN 16 MG/DL (9-23); CALCIUM LEVEL 9.4 MG/DL (8.5-10.1); CARBON DIOXIDE LEVEL 30 MMOL/L (20-31); CHLORIDE LEVEL 102 MMOL/L (98-107); CREATININE FOR GFR 0.91 MG/DL (0.70-1.30); GLOMERULAR FILTRATION RATE > 60.0 (>60); GLUCOSE, FASTING 101 MG/DL (60-100); POTASSIUM SERUM 5.2 MMOL/L (3.5-5.1); SODIUM LEVEL 136 MMOL/L (136-145); TOTAL PROTEIN 7.2 G/DL (5.7-8.2)
[2024-01-04 22:11] LABS: APPEARANCE, URINE HAZY (CLEAR); BACTERIA, URINE AUTO NEGATIVE (NEGATIVE); BILIRUBIN, URINE AUTO NEGATIVE (NEGATIVE); BLOOD, URINE BLOOD NEGATIVE (NEGATIVE); CALCIUM OXALATE CRYSTALS SMALL; COLOR, URINE AMBER (YELLOW); GLUCOSE, URINE (UA) AUTO NEGATIVE (NEGATIVE); KETONE, URINE AUTO NEGATIVE (NEGATIVE); LEUKOCYTE ESTERASE, URINE AUTO NEGATIVE (NEGATIVE); MUCUS, URINE LARGE (NEGATIVE); NITRITE, URINE AUTO NEGATIVE (NEGATIVE); PROTEIN, URINE AUTO 2+ mg/dL (NEGATIVE); RBC, URINE AUTO 4 /HPF (0-3); SPECIFIC GRAVITY URINE AUTO 1.031 (1.002-1.035); SQUAMOUS EPITHELIAL CELL UR AU 0 /HPF (0-6); WBC, URINE AUTO 14 /HPF (0-3)
[2024-01-04] MEDS ORDERED: ISOVUE-370 76% 100ML VIAL As Ordered ONE (22:34)
[2024-01-04] MEDS: NS 1,850 ML in IV 1 EA IV ONE (22:35)
[2024-01-04] MEDS ORDERED: KETOROLAC 30 MG/ML 1ML VIAL IV ONE (22:35)
[2024-01-05 00:35] LABS: PROCALCITONIN 0.11 ng/ml
[2024-01-05] MEDS: KETOROLAC 60MG 2ML VIAL IM ONE (00:35)
[2024-01-05 02:23] VITALS: TEMP 97
[2024-01-05 03:00] VITALS: BP 82/45
[2024-01-05 03:22] VITALS: O2SAT 97
[2024-01-05] MEDS ORDERED: NAPR-837 PO (03:27)
== END 2024-01-05 03:53 | disposition home or self-care (01) ==
LOC: M ED 19:22
DX: R10.9 Unspecified abdominal pain (principal); F17.200 Nicotine dependence, unspecified, uncomplicated; F11.10 Opioid abuse, uncomplicated; Z87.442 Personal history of urinary calculi; Z79.1 Long term (current) use of non-steroidal anti-inflammatories (NSAID); Z79.899 Other long term (current) drug therapy; Z79.2 Long term (current) use of antibiotics
CPT/HCPCS: 74176; 80048; 80076; 81001; 83605; 83690; 84145; 85025; 87040; 96372; 99285; J1885

== ENCOUNTER 2024-01-26 02:11 | Emergency (ER) | payer MEDICAID, SELFPAY ==
[~2024-01-26 02:11] MED LIST changes: +NAPR-837 PO
[2024-01-26] MEDS: KETOROLAC 60MG 2ML VIAL IM ONE (06:20)
[2024-01-26 07:00] LABS: BASO # 0.1 10^3/uL (0.0-0.2); BASO % 0.6 % (0.0-1.0); EOS # 0.1 10^3/uL (0.0-0.5); EOS % 0.9 % (0.0-3.0); LYMPH # 1.5 10^3/uL (1.5-5.0); LYMPH % 16.5 % (24.0-44.0); MEAN CORPUSCULAR HEMOGLOBIN 26.8 pg (27.0-33.0); MEAN CORPUSCULAR HGB CONC 31.3 g/dl (32.0-36.5); MEAN CORPUSCULAR VOLUME 85.8 fl (80.0-96.0); MONO # 0.6 10^3/uL (0.0-0.8); MONO % 6.5 % (2.0-8.0); NEUTROPHILS # 6.7 10^3/uL (1.5-8.5); NEUTROPHILS % 75.2 % (36.0-66.0); PLATELET COUNT, AUTOMATED 424 10^3/uL (150-450); RED BLOOD COUNT 3.73 10^6/uL (4.30-6.10); WHITE BLOOD COUNT 8.9 10^3/uL (4.0-10.0)
[2024-01-26 07:13] LABS: LIPASE 19 U/L (12-53)
[2024-01-26 07:16] LABS: ALBUMIN 2.4 G/DL (3.2-5.2); ALKALINE PHOSPHATASE 108 U/L (46-116); ALT/SGPT 37 U/L (7.0-40); AST/SGOT 20 U/L (<34); BILIRUBIN,DIRECT < 0.1 MG/DL (<0.4); BILIRUBIN,TOTAL < 0.2 MG/DL (0.3-1.2); BLOOD UREA NITROGEN 20 MG/DL (9-23); CARBON DIOXIDE LEVEL 30 MMOL/L (20-31); CHLORIDE LEVEL 102 MMOL/L (98-107); CREATININE FOR GFR 0.91 MG/DL (0.70-1.30); GLOMERULAR FILTRATION RATE > 60.0 (>60); GLUCOSE, FASTING 95 MG/DL (60-100); POTASSIUM SERUM 3.6 MMOL/L (3.5-5.1); SODIUM LEVEL 138 MMOL/L (136-145); TOTAL PROTEIN 7.8 G/DL (5.7-8.2)
[2024-01-26 07:50] LABS: BARBITURATES URINE NEGATIVE (NEGATIVE); CANNABINOIDS URINE NEGATIVE (NEGATIVE); METHADONE URINE NEGATIVE (NEGATIVE); PHENCYCLIDINE URINE NEGATIVE (NEGATIVE)
[2024-01-26 07:51] LABS: BENZODIAZEPINES URINE NEGATIVE (NEGATIVE)
[2024-01-26] MEDS ORDERED: PROHANCE 279.3MG/ML 15ML VIAL As Ordered ONE (07:54)
[2024-01-26 07:56] LABS: AMPHETAMINES LEVEL URINE POSITIVE (NEGATIVE); COCAINE METABOLITE URINE POSITIVE (NEGATIVE); OPIATES URINE POSITIVE (NEGATIVE)
[2024-01-26 08:19] LABS: ERYTHROCYTE SEDIMENTATION RATE 108 mm/hr (0-15)
[2024-01-26] MEDS: ACETAMINOPHEN 500 MG TAB PO ONE (09:18)
[2024-01-26] MEDS: diazePAM 10MG/2ML SYRINGE IV ONE ×2 (09:46→11:20)
[2024-01-26] MEDS: MORPHINE 4 MG/ML 1ML VIAL IV ONE ×2 (09:46→11:20)
[2024-01-26] MEDS ORDERED: RIFAMPIN IV STA (11:10)
[2024-01-26] MEDS ORDERED: NS IV STA (11:10)
[2024-01-26] MEDS: CLINDAMYCIN 300 MG in IV 1 EA IV SCH (12:02)
[2024-01-26] MEDS: DOXYCYCLINE HYCLATE 100 MG in D5W MINI-BAG PLUS 100 ML IV ONE (13:07)
[2024-01-26 14:40] VITALS: BP 115/70; TEMP 97.4; O2SAT 98
== END 2024-01-26 16:00 | disposition left against medical advice (07) ==
LOC: M ED 02:11
DX: F19.10 Other psychoactive substance abuse, uncomplicated (principal); M46.46 Discitis, unspecified, lumbar region; M46.26 Osteomyelitis of vertebra, lumbar region; M48.061 Spinal stenosis, lumbar region without neurogenic claudication; F17.200 Nicotine dependence, unspecified, uncomplicated; B17.9 Acute viral hepatitis, unspecified; Z87.442 Personal history of urinary calculi; Z79.1 Long term (current) use of non-steroidal anti-inflammatories (NSAID); Z79.899 Other long term (current) drug therapy; Z53.9 Procedure and treatment not carried out, unspecified reason
CPT/HCPCS: 36415; 72158; 74176; 80048; 80076; 80307; 81001; 83605; 83690; 85025; 85652; 86140; 87040; 87086; 96365; 96366; 96375; 96376; 99283; A9576; J0737; J3360

== ENCOUNTER 2024-01-31 12:06 | Emergency (ER) | payer MEDICAID ==
[~2024-01-31] VITALS: Ht 175.3 cm; Wt 68.2 kg
[2024-01-31] MEDS: BOOSTRIX VACCINE (TETANUS/DIPHTH/ACEL. PERTUSSIS) 0.5ML SYR IM.IMMUN ONE (13:15)
[2024-01-31] MEDS ORDERED: LIDOCAINE 1% MDV 20ML VIAL As Ordered ONE (15:40)
[2024-01-31] MEDS: SODIUM CHLORIDE 0.9% INJ 10 ML SYR IV PRN (16:47)
[2024-01-31 17:06] LABS: BASO # 0.1 10^3/uL (0.0-0.2); BASO % 0.5 % (0.0-1.0); EOS # 0.1 10^3/uL (0.0-0.5); EOS % 0.6 % (0.0-3.0); HEMOGLOBIN 9.5 g/dl (13.5-17.5); LYMPH # 2.3 10^3/uL (1.5-5.0); LYMPH % 20.5 % (24.0-44.0); MEAN CORPUSCULAR HGB CONC 31.7 g/dl (32.0-36.5); MEAN CORPUSCULAR VOLUME 85.2 fl (80.0-96.0); MONO # 0.8 10^3/uL (0.0-0.8); MONO % 6.9 % (2.0-8.0); NEUTROPHILS # 7.9 10^3/uL (1.5-8.5); PLATELET COUNT, AUTOMATED 353 10^3/uL (150-450); RED BLOOD COUNT 3.52 10^6/uL (4.30-6.10); WHITE BLOOD COUNT 11.2 10^3/uL (4.0-10.0)
[2024-01-31 17:29] LABS: ERYTHROCYTE SEDIMENTATION RATE 86 mm/hr (0-15)
[2024-01-31 17:37] LABS: BLOOD UREA NITROGEN 18 MG/DL (9-23); CALCIUM LEVEL 8.9 MG/DL (8.5-10.1); CARBON DIOXIDE LEVEL 32 MMOL/L (20-31); CHLORIDE LEVEL 99 MMOL/L (98-107); CREATININE FOR GFR 0.72 MG/DL (0.70-1.30); GLOMERULAR FILTRATION RATE > 60.0 (>60); GLUCOSE, FASTING 77 MG/DL (60-100); POTASSIUM SERUM 4.4 MMOL/L (3.5-5.1); SODIUM LEVEL 131 MMOL/L (136-145)
[2024-01-31] MEDS ORDERED: ISOVUE-370 76% 100ML VIAL As Ordered ONE (18:18)
[2024-01-31 18:32] VITALS: TEMP 97.6
[2024-01-31] MEDS: MORPHINE 4 MG/ML 1ML VIAL IV ONE (19:40)
[2024-01-31 20:03] VITALS: BP 93/59; O2SAT 94
== END 2024-01-31 20:07 | disposition short-term general hospital (02) ==
LOC: M ED 12:06
DX: M46.26 Osteomyelitis of vertebra, lumbar region (principal); M46.46 Discitis, unspecified, lumbar region; R91.1 Solitary pulmonary nodule; F17.200 Nicotine dependence, unspecified, uncomplicated; F19.10 Other psychoactive substance abuse, uncomplicated; Z86.16 Personal history of COVID-19
CPT/HCPCS: 72132; 76937; 80048; 83605; 85025; 85652; 86140; 87040; 96374; 99285; C1751; Q9967

== ENCOUNTER 2025-02-06 13:16 | Emergency (ER) | payer OTHER, SELFPAY ==
[~2025-02-06] VITALS: Ht 175.3 cm; Wt 67.8 kg
[~2025-02-06 13:16] MED LIST changes: -DOXY-323 PO; +DOXY-441 PO; +GABA-1172 PO; +GABA-1490 PO; -GABA-282 PO; -GABA600T4 PO; -IBUP-1022 PO; +IBUP600T42 PO
[2025-02-06 13:53] LABS: BASO # 0.0 10^3/uL (0.0-0.2); BASO % 0.6 % (0.0-1.0); EOS # 0.1 10^3/uL (0.0-0.5); EOS % 0.7 % (0.0-3.0); LYMPH # 1.8 10^3/uL (1.5-5.0); LYMPH % 25.3 % (24.0-44.0); MONO # 0.5 10^3/uL (0.0-0.8); MONO % 6.9 % (2.0-8.0); NEUTROPHILS # 4.7 10^3/uL (1.5-8.5); NEUTROPHILS % 66.4 % (36.0-66.0); PLATELET COUNT, AUTOMATED 356 10^3/uL (150-450)
[2025-02-06 14:15] LABS: ETHYL ALCOHOL (ETHANOL) < 0.003 % (0.000-0.010)
[2025-02-06 14:17] LABS: ALT/SGPT 12 U/L (7.0-40); AST/SGOT 16 U/L (<34); CALCIUM LEVEL 9.0 MG/DL (8.5-10.1); CARBON DIOXIDE LEVEL 26 MMOL/L (20-31); CHLORIDE LEVEL 102 MMOL/L (98-107); CREATININE FOR GFR 0.76 MG/DL (0.70-1.30); GLOMERULAR FILTRATION RATE > 90.0 (>60); MAGNESIUM LEVEL 2.0 MG/DL (1.8-2.4); POTASSIUM SERUM 4.9 MMOL/L (3.5-5.1); SODIUM LEVEL 137 MMOL/L (136-145)
[2025-02-06] MEDS ORDERED: ACET300T48 PO (14:35)
[2025-02-06] MEDS ORDERED: LOPE1CAP5 PO (14:35)
[2025-02-06] MEDS ORDERED: ONDA-83 PO (14:35)
[2025-02-06] MEDS ORDERED: CLONI1TA PO (14:35)
[2025-02-06] MEDS ORDERED: HOME MED LIST COMPLETE! XX SCH (14:40)
[2025-02-06] MEDS: NS (Normal Saline) 0.9% 1,000 ML IV ONE (15:15)
[2025-02-06 15:17] LABS: BARBITURATES URINE NEGATIVE (NEGATIVE); BENZODIAZEPINES URINE NEGATIVE (NEGATIVE); CANNABINOIDS URINE NEGATIVE (NEGATIVE); COCAINE METABOLITE URINE NEGATIVE (NEGATIVE); METHADONE URINE NEGATIVE (NEGATIVE); PHENCYCLIDINE URINE NEGATIVE (NEGATIVE)
[2025-02-06 15:18] LABS: AMPHETAMINES LEVEL URINE POSITIVE (NEGATIVE); OPIATES URINE POSITIVE (NEGATIVE)
[2025-02-06 18:50] VITALS: BP 102/58; TEMP 97.4; O2SAT 99
== END 2025-02-06 18:50 | disposition home or self-care (01) ==
LOC: M ED 13:16 → EDBD 13:16 → M ED 18:50
DX: I95.1 Orthostatic hypotension (principal); F19.10 Other psychoactive substance abuse, uncomplicated; F17.200 Nicotine dependence, unspecified, uncomplicated; R94.31 Abnormal electrocardiogram [ECG] [EKG]; J34.89 Other specified disorders of nose and nasal sinuses; Z79.899 Other long term (current) drug therapy